=== PATIENT | female | born 1940 | race Caucasian/White ===

== ENCOUNTER → 2016-11-12 | Outpatient (CLI) | payer MEDICARE ==
--- NOTE | 2016-11-12 12:45 | BD ---
EXAMINATION TYPE: MG DEXA axial skeleton. DATE OF EXAM: 11/12/2016 9:12 AM COMPARISON: Previous exam dated 14 October 2014 CLINICAL HISTORY: DISORDER OF BONE Height: 4'11 Weight: 131 FRAX RISK QUESTIONS: Alcohol (3 or more units per day): no Family History (Parent hip fracture): no Glucocorticoids (More than 3mos): no (Ex: prednisone, prednisolone, methylprednisolone, dexamethasone, and hydrocortisone). History of Fracture in Adulthood: no Secondary Osteoporosis: 1. Type 1 Diabetes: no 2. Hyperthyroidism: no 3. Menopause before 45: no 4. Malnutrition: no 5. Chronic liver disease: no Rheumatoid Arthritis: no Current Tobacco Use: no RISK FACTORS HISTORY OF: Family History of Osteoporosis: Diet low in dairy products/other sources of calcium: Postmenopausal woman: Yes MEDICATIONS: Additional Medications: cholesterol, anxiety Additional History: disorder of bone EXAM MEASUREMENTS: Bone mineral densitometry was performed using the [employer] System. Bone mineral density as measured about the Lumbar spine is: ----- L1-L4(G/cm2): 0.952 T Score Values are as follows: ----- L2: -2.6 ----- L3: -1.5 ----- L4: -1.7 ----- L1-L4: -1.9 Bone mineral density has: Decreased -4.7% since study of: 10/14/2014 Bone mineral density about the R hip (g/cm2): 0.729 Bone mineral density about the L hip (g/cm2): 0.754 T Score values are as follows: -----R Neck: -2.2 -----L Neck: -2.0 -----R Intertrochanter: 0.729 -----L Intertrochanter: 0.754 Bone mineral density has: Decreased -2.9% since study of: 10/14/2014 IMPRESSION: Osteoporosis (T Score less than -2.5) as noted by T Score values at the : L2 There is increased fracture risk and therapy is usually indicated based on age. Re-Screen 1-2 years. NOTE: T-SCORE=SD OF THE YOUNG ADULT MEAN.
== END | disposition home or self-care (01) ==
LOC: RADBDWWP 08:42
PROVIDERS: ATTEND Obstetrics & Gynecology
DX: M81.0 Age-related osteoporosis without current pathological fracture (principal)
CPT/HCPCS: 77080

== ENCOUNTER → 2017-03-26 | Outpatient (CLI) | payer MEDICARE ==
[2017-03-26 08:14] LABS: ALT 30 U/L (9-52); AST 28 U/L (14-36); Alkaline Phosphatase 72 U/L (38-126); Anion Gap 10 mmol/L; Blood Urea Nitrogen 14 mg/dL (7-17); Calcium 9.2 mg/dL (8.4-10.2); Carbon Dioxide 25 mmol/L (22-30); Chloride 108 mmol/L (98-107); Cholesterol 181 mg/dL (<200); Glucose 90 mg/dL (74-99); HDL Cholesterol 83 mg/dL (40-60); Non-African American GFR(MDRD) >60 (>60 ml/min/1.73 sqM); Potassium 4.2 mmol/L (3.5-5.1); Sodium 143 mmol/L (137-145); Total Bilirubin 0.6 mg/dL (0.2-1.3); Total Protein 7.1 g/dL (6.3-8.2); Triglycerides 137 mg/dL (<150)
[2017-03-26 08:17] LABS: CH 22.3; CHCM 28.2; HCT 31.1 % (34.0-46.0); HGB 8.8 gm/dL (11.4-16.0); Hypochromasia Marked; MCH 22.6 pg (25.0-35.0); MCHC 28.4 g/dL (31.0-37.0); MCV 79.5 fL (80.0-100.0); Mean Platelet Volume 7.5; RBC 3.91 m/uL (3.80-5.40); RDW 15.7 % (11.5-15.5); WBC 6.7 k/uL (3.8-10.6)
== END | disposition home or self-care (01) ==
LOC: LABWHC1 07:37
PROVIDERS: ATTEND Internal Medicine
DX: E78.5 Hyperlipidemia, unspecified (principal); E87.8 Other disorders of electrolyte and fluid balance, not elsewhere classified; R53.83 Other fatigue
CPT/HCPCS: 36415; 80053; 80061; 84443; 85027

== ENCOUNTER → 2017-03-29 | Outpatient (CLI) | payer MEDICARE ==
[2017-03-29 07:48] LABS: Basophils % (A) 1 %; CH 22.1; CHCM 28.3; Eosinophils # (A) 0.4 k/uL (0-0.7); Eosinophils % (A) 8 %; HCT 28.8 % (34.0-46.0); HGB 8.4 gm/dL (11.4-16.0); Hypochromasia Marked; Luc # (Auto) 0.19; Luc % (Auto) 4; Lymphocytes # (A) 1.2 k/uL (1.0-4.8); Lymphocytes % (A) 22 %; MCHC 29.4 g/dL (31.0-37.0); MCV 78.4 fL (80.0-100.0); Mean Platelet Volume 7.6; Microcytosis Slight; Monocytes # (A) 0.3 k/uL (0-1.0); Monocytes % (A) 6 %; Neutrophils # (A) 3.1 k/uL (1.3-7.7); Neutrophils % (A) 60 %; RBC 3.67 m/uL (3.80-5.40); RDW 15.9 % (11.5-15.5); WBC 5.2 k/uL (3.8-10.6); WBC (Perox) 5.53
[2017-03-29 11:44] LABS: C Reactive Protein 6.5 mg/L (<10.0)
[2017-03-29 11:51] LABS: % Iron Saturation 3.8 % (20-50)
== END | disposition home or self-care (01) ==
LOC: LABWHC1 07:09
PROVIDERS: ATTEND Internal Medicine
DX: D64.9 Anemia, unspecified (principal)
CPT/HCPCS: 36415; 82728; 83540; 83550; 84165; 85025; 86140

== ENCOUNTER 2017-04-23 07:00 | Day surgery (SDC) | payer MEDICARE ==
[2017-04-21 08:44] VITALS: BMI 24.7
[~2017-04-23 07:00] MED LIST: LACTATED RINGERS 1,000 ML IV SCH; LIDOCAINE 1% 20 ML VIAL (10MG/ML) FOR IV START INTRADERMA PRN
[2017-04-23 07:21] VITALS: RESP 16; TEMP 97.6
[2017-04-23] MEDS ORDERED: PROPOFOL 10 MG/ML 20 ML VIAL IV ONE (08:03)
[2017-04-23] MEDS ORDERED: LIDOCAINE 1% INJ 10MG/ML (20 ML MDV) ONE (08:03)
[2017-04-23 09:00] VITALS: PULSE 80
--- NOTE | 2017-04-23 09:01 | P.PCN ---
Date of Procedure: 04/23/17 Preoperative Diagnosis: Postoperative Diagnosis: Procedure(s) Performed: Brief history: Patient is a pleasant 76-year-old white female, scheduled for an elective upper endoscopy as well as colonoscopy as a part of evaluation of iron deficiency anemia. She was recently noted to have a hemoglobin of 8 and iron indices consistent with iron deficiency anemia. She denies any GI symptoms. She does have long-standing history of GERD and has been on omeprazole 20 mg daily and doing well. Procedure performed: Esophagogastroduodenoscopy with biopsy Colonoscopy Preoperative diagnosis: Iron deficiency anemia GERD Anesthesia: MAC Procedure: After informed consent was obtained from the patient was brought into the endoscopy unit and IV sedation was administered by anesthesia under continuous monitoring. Initially upper endoscopy was done. The Olympus GF 160 video endoscope was inserted inserted into the mouth and esophagus intubated without any difficulty and was gradually advanced into the stomach and duodenum and carefully examined. The bulb and second part of the duodenum appeared normal. Labs were done from the duodenum to rule out celiac disease. The scope was then withdrawn into the stomach adequately insufflated with air and upon careful examination the antrum and body had mild gastritis and biopsies were done from this area. The, cardia and fundus appeared normal. The scope was then withdrawn into the esophagus. Moderate large size hiatal hernia noted. The diaphragmatic impression was at 40 cm to the incisors. The GE junction was located at 30 cm to the incisors. It appeared regular with no erythema erosions or ulcerations. Rest of the esophagus appeared normal. Patient tolerated the procedure well. At this time the patient continued to remain sedation. Initial digital rectal examination was normal. Olympus CF 160 video colonoscope was then inserted into the rectum and gradually advanced to the cecum without any difficulty. Careful examination was performed as the scope was gradually being withdrawn. The prep was extremely poor throughout the colon and thorough irrigation was performed using irrigation system despite with some areas could not be adequately visualized. The cecum, ascending colon, transverse colon, descending colon, sigmoid colon and rectum appeared normal. Retroflexion was performed in the rectum and no lesions were noted. Patient tolerated the procedure well. Impression: 1. Upper endoscopy revealed moderate to large size hiatal hernia and mild antral gastritis 2. Colonoscopy revealed extremely poor prep but no evidence of colitis or colorectal neoplasia. Recommendations: Findings of this examination were discussed with the patient as well as a family. She was advised to follow with the biopsy results. She'll be scheduled for a small bowel capsule endoscopy to evaluate for small bowel bowel source of occult GI blood loss causing iron deficiency anemia. She'll be seen back in office in a month. Implants: Indications for Procedure: Operative Findings: Description of Procedure:
[2017-04-23 09:12] VITALS: BP 128/83
== END 2017-04-23 10:01 | disposition home or self-care (01) ==
LOC: ORWHC2ENDO 07:00
PROVIDERS: ATTEND Internal Medicine Gastroenterology
DX: K21.9 Gastro-esophageal reflux disease without esophagitis (principal); K29.50 Unspecified chronic gastritis without bleeding; K44.9 Diaphragmatic hernia without obstruction or gangrene; D50.9 Iron deficiency anemia, unspecified; Z79.899 Other long term (current) drug therapy
CPT/HCPCS: 43239; 45378; 88305; 88342; J2001; J2704

== ENCOUNTER → 2017-05-01 | Day surgery (SDC) | payer MEDICARE ==
[2017-04-28 13:19] VITALS: BMI 24.7
[~2017-05-01] MED LIST changes: -LACTATED RINGERS 1,000 ML IV SCH; -LIDOCAINE 1% 20 ML VIAL (10MG/ML) FOR IV START INTRADERMA PRN; +SIMETHICONE 40 MG/0.6 ML DROPS 2,000 MG/30 ML BOTTLE PO ONE
== END ==
LOC: ORWHC2ENDO 06:58
PROVIDERS: ATTEND Internal Medicine Gastroenterology
DX: D50.9 Iron deficiency anemia, unspecified (principal); R19.5 Other fecal abnormalities; K29.70 Gastritis, unspecified, without bleeding; K44.9 Diaphragmatic hernia without obstruction or gangrene
CPT/HCPCS: 91110

== ENCOUNTER → 2017-06-04 | Outpatient (CLI) | payer MEDICARE ==
[2017-06-04 08:17] LABS: Anisocytosis Slight; CH 23.7; CHCM 29.3; HCT 34.7 % (34.0-46.0); HGB 10.5 gm/dL (11.4-16.0); Hypochromasia Marked; MCH 24.7 pg (25.0-35.0); MCHC 30.4 g/dL (31.0-37.0); MCV 81.4 fL (80.0-100.0); Mean Platelet Volume 7.4; Microcytosis Slight; RBC 4.26 m/uL (3.80-5.40); RDW 19.5 % (11.5-15.5); WBC 7.4 k/uL (3.8-10.6)
== END | disposition home or self-care (01) ==
LOC: LABWHC1 07:58
PROVIDERS: ATTEND Internal Medicine Gastroenterology
DX: D50.9 Iron deficiency anemia, unspecified (principal)
CPT/HCPCS: 36415; 85027

== ENCOUNTER → 2017-08-14 | Outpatient (CLI) | payer MEDICARE ==
[2017-08-14 07:53] LABS: Anisocytosis Slight; CH 27.7; CHCM 30.3; HDW 2.25; HGB 13.6 gm/dL (11.4-16.0); Hypochromasia Moderate; MCH 28.2 pg (25.0-35.0); MCHC 30.8 g/dL (31.0-37.0); MCV 91.5 fL (80.0-100.0); Mean Platelet Volume 7.9; RBC 4.81 m/uL (3.80-5.40); RDW 16.6 % (11.5-15.5); WBC 5.7 k/uL (3.8-10.6)
== END | disposition home or self-care (01) ==
LOC: LABWHC1 07:18
PROVIDERS: ATTEND Internal Medicine Gastroenterology
DX: D50.9 Iron deficiency anemia, unspecified (principal)
CPT/HCPCS: 36415; 85027

== ENCOUNTER → 2017-09-26 | Outpatient (CLI) | payer MEDICARE ==
[2017-09-26 08:38] LABS: Anion Gap 9 mmol/L; Blood Urea Nitrogen 14 mg/dL (7-17); Calcium 9.5 mg/dL (8.4-10.2); Carbon Dioxide 27 mmol/L (22-30); Chloride 106 mmol/L (98-107); Cholesterol 196 mg/dL (<200); Glucose 90 mg/dL (74-99); HDL Cholesterol 67 mg/dL (40-60); Non-African American GFR(MDRD) >60 (>60 ml/min/1.73 sqM); Potassium 4.1 mmol/L (3.5-5.1); Sodium 142 mmol/L (137-145)
== END | disposition home or self-care (01) ==
LOC: LABWHC1 07:54
PROVIDERS: ATTEND Internal Medicine
DX: E78.4 Other hyperlipidemia (principal); E87.8 Other disorders of electrolyte and fluid balance, not elsewhere classified
CPT/HCPCS: 36415; 80048; 80061

== ENCOUNTER 2018-04-16 18:50 | Emergency (ER) | payer MEDICARE ==
[2018-04-16 19:01] VITALS: BP 146/98; PULSE 88; RESP 16; TEMP 98
[2018-04-16] MEDS ORDERED: LIDOCAINE 1% INJ 10MG/ML (20 ML MDV) SQ ONE (19:12)
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
--- NOTE | 2018-04-16 19:42 | XR ---
EXAMINATION TYPE: XR finger RT DATE OF EXAM: 04/16/2018 COMPARISON: NONE HISTORY: Pain and injury right little finger TECHNIQUE: 3 views FINDINGS: There is nondisplaced transverse fracture across the base of the proximal phalanx of the li ttle finger right hand. There is some spurring at the PIP joint. There is osteopenia. IMPRESSION: Acute fracture of the little finger as above.
== END 2018-04-16 19:45 | disposition home or self-care (01) ==
LOC: EC 18:50
DX: S62.646A Nondisplaced fracture of proximal phalanx of right little finger, initial encounter for closed fracture (principal); E78.5 Hyperlipidemia, unspecified; F41.9 Anxiety disorder, unspecified; F32.9 Major depressive disorder, single episode, unspecified; Z79.899 Other long term (current) drug therapy; Z91.030 Bee allergy status; V18.0XXA Pedal cycle driver injured in noncollision transport accident in nontraffic accident, initial encounter
CPT/HCPCS: 73140; 99283; 26725; J2001

== ENCOUNTER → 2018-09-30 | Outpatient (CLI) | payer MEDICARE ==
[2018-09-30 11:18] LABS: Calcium 9.9 mg/dL (8.4-10.2); Potassium 4.7 mmol/L (3.5-5.1)
[2018-09-30 11:25] LABS: Basophils % (A) 0 %; Eosinophils # (A) 0.1 k/uL (0-0.7); Eosinophils % (A) 1 %; HCT 46.3 % (34.0-46.0); HGB 15.3 gm/dL (11.4-16.0); Lymphocytes # (A) 1.2 k/uL (1.0-4.8); Lymphocytes % (A) 14 %; MCH 31.3 pg (25.0-35.0); MCV 94.9 fL (80.0-100.0); Mean Platelet Volume 7.8; Monocytes # (A) 0.5 k/uL (0-1.0); Monocytes % (A) 6 %; Neutrophils # (A) 7.2 k/uL (1.3-7.7); Neutrophils % (A) 78 %; Platelet Count 290 k/uL (150-450); RBC 4.88 m/uL (3.80-5.40); RDW 13.7 % (11.5-15.5); WBC 9.2 k/uL (3.8-10.6)
[2018-09-30 11:38] LABS: Appearance,Urine Cloudy (Clear); Bacteria,Urine Rare /hpf; Bilirubin,Urine Negative (Negative); Blood,Urine Negative (Negative); Color,Urine Yellow; Glucose,Urine (UA) Negative (Negative); Ketones,Urine Negative (Negative); Leukocyte Esterase,Urine Large (Negative); Mucus,Urine Moderate /hpf; Nitrite,Urine Negative (Negative); PH, Urine 6.5 (5.0-8.0); Protein,Urine Trace (Negative); Specific Gravity,Urine 1.026 (1.001-1.035); Squamous Epithelial Cell,Urine 7 /hpf (0-4); WBC,Urine 40 /hpf (0-5)
== END | disposition home or self-care (01) ==
LOC: LABPAT 10:30
PROVIDERS: ATTEND Urology
DX: Z01.812 Encounter for preprocedural laboratory examination (principal); N39.3 Stress incontinence (female) (male)
CPT/HCPCS: 80048; 81001; 85025; 87086

== ENCOUNTER 2018-10-07 09:14 | Observation (INO) | payer MEDICARE ==
[2018-09-30 10:00] VITALS: BMI 25.7
--- NOTE | 2018-10-06 15:17 | P.GSHP ---
History of Present Illness H&P Date: 10/06/18 78 yo with stress urinary incontinence who has failed conservative measures. HEr uds studies identified lpp of 100 and 99 cm h2o Her bladder function normal and her urthra is hypermobile She comes for a tot and cysto The risks and complications including the mesh controversy, pain erosion, failure retention have been explained understood and accepted. - Constitutional Constitutional: Denies chills, Denies fever - EENT Eyes: denies blurred vision, denies pain Ears, nose, mouth and throat: Denies headache, Denies sore throat - Cardiovascular Cardiovascular: Denies chest pain, Denies shortness of breath - Respiratory Respiratory: Denies cough, Denies 7 - Gastrointestinal Gastrointestinal: Denies abdominal pain, Denies diarrhea, Denies nausea, Denies vomiting - Genitourinary (Female) Genitourinary: Denies dysuria, Denies hematuria - Genitourinary (Male) Genitourinary: Denies dysuria, Denies hematuria - Musculoskeletal Musculoskeletal: Denies myalgias - Integumentary Integumentary: Denies pruritus, Denies rash - Neurological Neurological: Denies numbness, Denies weakness - Psychiatric Psychiatric: Denies anxiety, Denies depression - Endocrine Endocrine: Denies fatigue, Denies weight change Past Medical History Past Medical History: Hyperlipidemia, Osteoarthritis (OA) Additional Past Medical History / Comment(s): urinary incontinence History of Any Multi-Drug Resistant Organisms: None Reported Past Surgical History: Breast Surgery, Orthopedic Surgery Additional Past Surgical History / Comment(s): BILAT bunionectomy, CYST REMOVED RT BREAST, BIOPSIES ON BILAT BREAST. COLONOSCOPY/EGD, rt hand trigger thumb Past Anesthesia/Blood Transfusion Reactions: No Reported Reaction Smoking Status: Never smoker - Past Family History Mother Family Medical History: Cancer Medications and Allergies Home Medications Medication Instructions Recorded Confirmed Type ALPRAZolam 0.25 mg PO DIRECTED PRN 12/21/14 09/30/18 History Cyclobenzaprine [Flexeril] 1 mg PO HS 12/21/14 09/30/18 History PARoxetine HCL 40 mg PO DAILY 01/03/15 09/30/18 History Pravastatin Sodium [Pravachol] 40 mg PO DAILY 01/03/15 09/30/18 History Gabapentin [Neurontin] 100 mg PO DAILY 09/30/18 09/30/18 History Allergies Allergy/AdvReac Type Severity Reaction Status Date / Time bee venom protein (honey bee) AdvReac Swelling Verified 09/30/18 09:56 Surgical - Exam - General well developed, well nourished, no distress - Eyes PERRL - ENT no hearing loss - Neck no masses - Respiratory normal expansion, normal respiratory effort - Cardiovascular Rhythm: regular - Abdomen Abdomen: soft, non tender - Genitourinary hypermobile urethra, renetta, positive felisha test - Integumentary no rash, no growths - Neurologic normal coordination, normal sensation - Musculoskeletal normal gait, normal posture - Psychiatric oriented to time, oriented to person, oriented to place, speech is normal, memory intact Assessment and Plan Assessment: Impression. RENETTA Plan: TOT with cysto
[~2018-10-07 09:14] MED LIST changes: +DEXAMETHASONE SOD PHOSPHATE 10 MG/ML 1 ML VIAL IV ONE; +HYDROmorphone 1 MG/ML 1 ML SYRINGE IVP PRN; +LACTATED RINGERS 1,000 ML IV SCH; +MIDAZOLAM 2 MG/2 ML VIAL IV PRN; +ONDANSETRON 4 MG/2 ML VIAL IVP ONE; -SIMETHICONE 40 MG/0.6 ML DROPS 2,000 MG/30 ML BOTTLE PO ONE; +ceFAZolin 1,000 MG in EMPTY BAG 1 BAG IVPB ONE
[2018-10-07] MEDS ORDERED: LIDOCAINE 1% 20 ML VIAL (10MG/ML) FOR IV START INTRADERMA ONE (10:06)
[2018-10-07] MEDS ORDERED: MIDAZOLAM 2 MG/2 ML VIAL ONE (10:45)
[2018-10-07] MEDS ORDERED: LIDOCAINE 1% INJ 10MG/ML (20 ML MDV) ONE (10:45)
[2018-10-07] MEDS ORDERED: PROPOFOL 10 MG/ML 20 ML VIAL IV ONE (10:45)
[2018-10-07] MEDS ORDERED: fentaNYL (PF) 50 MCG/ML 2 ML AMP ONE (10:45)
[2018-10-07] MEDS ORDERED: ONDANSETRON 4 MG/2 ML VIAL IVP PRN (10:58)
[2018-10-07] MEDS ORDERED: BACITRACIN 500 UNIT/GM OINT 28.4 GM TUBE TOPICAL ONE (11:12)
[2018-10-07] MEDS ORDERED: VASOPRESSIN 20 UNIT/ML 1 ML VIAL SQ ONE (11:16)
[2018-10-07] MEDS ORDERED: GENTAMICIN IN NACL ISO-OSM PMX 80 MG/100 ML BAG IV ONE (11:16)
--- NOTE | 2018-10-07 11:29 | P.OP ---
Date of Procedure: 10/07/18 Preoperative Diagnosis: Urinary incontinence Postoperative Diagnosis: Stress urinary incontinence Procedure(s) Performed: Trans-obturator tape with cystoscopy Anesthesia: JOSE ALFREDO Surgeon: Sina Sawyer Pathology: none sent Condition: stable Disposition: PACU Indications for Procedure: The patient is a 78-year-old female with documented stress urinary incontinence on physical examination history and urodynamic she comes for a bladder neck suspension Description of Procedure: The patient is brought to the operating suite. She is given a successful general endotracheal anesthesia. She's placed lithotomy position with a sterile prep and drape. She's given a sterile abdominal and vaginal prep. A Kuo catheters introduced sterilely. The labia are sewn laterally with 2-0 silk. A vaginal speculum is placed. The anterior vaginal mucosa is elevated off the submucosa with 10 mL of a mixture Pitressin 20 g and saline 200 mL. A midline suburethral incision is made. I dissect lateral the bladder neck bilaterally. I make 2 incisions in the inguinal crease at the level of the clitoris. I passed the trans-obturator tape introducers through this incision into the obturator foramen around the issue pubic ramus into the vagina bilaterally making sure not to buttonhole the apex of the vagina. I then performed cystoscopy with a 19-Faroese sheath and Foroblique lens to make sure there is no bladder injury and there is none. I then attached the graft to the introducers and pull the obturator graft back through the obturator foramen through the inguinal crease bilaterally. Graft lay in the mid urethra nicely. I removed the redundant sheathing on the graft. I excised the redundant graft at the inguinal incision. I closed the vaginal mucosa with 3-0 Vicryl. I closed the skin with 4-0 Vicryl. A vaginal packing is placed in the vagina. The labial stitches are removed. The Kuo catheter had been replaced. The patient is awakened and returned recovery room good condition. Blood loss is about 25 mL.
[2018-10-07] MEDS: KETOROLAC 30 MG/ML 1 ML VIAL IVP PRN ×2 (12:15→18:05)
[2018-10-08] MEDS: KETOROLAC 30 MG/ML 1 ML VIAL IVP PRN ×2 (00:08→06:11)
[2018-10-08] MEDS: DEXTROSE 5%-0.45% NACL 1,000 ML IV SCH ×2 (04:09→05:08)
--- NOTE | 2018-10-08 07:14 | P.DS ---
Providers Date of admission: 10/08/18 04:32 Attending physician: Sina Sawyer Primary care physician: [facility] Course: The patient was admitted to the hospital 09/29/2018 for a trans-obturator tape. She underwent this without difficulty. She did well overnight with minimal discomfort. The packing and catheter removed this morning. She has voided. She'll be discharged later today assuming she continues to void without difficulty. She'll be followed up in the office in one week. Postoperative instructions given. She will resume her home medications. She does not require any narcotics. Her condition is good upon discharge Patient Condition at Discharge: Good Plan - Discharge Summary New Discharge Prescriptions: No Action Cyclobenzaprine [Flexeril] 10 mg PO HS ALPRAZolam 0.25 mg PO DAILY PRN PRN Reason: Anxiety Pravastatin Sodium [Pravachol] 40 mg PO DAILY PARoxetine HCL 40 mg PO DAILY Gabapentin [Neurontin] 100 mg PO DAILY Discharge Medication List ALPRAZolam 0.25 mg PO DAILY PRN 12/21/14 [History] Cyclobenzaprine [Flexeril] 10 mg PO HS 12/21/14 [History] PARoxetine HCL 40 mg PO DAILY 01/03/15 [History] Pravastatin Sodium [Pravachol] 40 mg PO DAILY 01/03/15 [History] Gabapentin [Neurontin] 100 mg PO DAILY 09/30/18 [History] Follow up Appointment(s)/Referral(s): Sina Sawyer MD [STAFF PHYSICIAN] - 1 Week Discharge Disposition: HOME SELF-CARE
[2018-10-08 08:31] VITALS: BP 144/81; PULSE 101; RESP 20; TEMP 97.9
== END 2018-10-08 09:20 | disposition home or self-care (01) ==
LOC: OR 09:14 → 6PED 11:56 → OR 10-08 04:31 → 6PED 10-08 04:32
PROVIDERS: ADMIT Urology; ATTEND Urology
DX: N39.3 Stress incontinence (female) (male) (principal); E78.5 Hyperlipidemia, unspecified; M19.90 Unspecified osteoarthritis, unspecified site; Z79.899 Other long term (current) drug therapy; Z91.030 Bee allergy status
CPT/HCPCS: 57288; G0378; C1771; J1580; J2250; J1100; J2405; J2001; J3010; J1885 ×2; J0690; J2704

== ENCOUNTER → 2018-10-19 | Outpatient (CLI) | payer MEDICARE ==
--- NOTE | 2018-10-19 11:15 | US ---
EXAMINATION TYPE: US carotid duplex BILAT DATE OF EXAM: 10/19/2018 COMPARISON: NONE CLINICAL HISTORY: R42 Dizziness. 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 Intimal thickening is present on the left. Patient has very tortuous vessels IMPRESSION: No significant flow-limiting stenosis. Intimal thickening is present on the left. Criteria for Assigning % of Stenosis / Diameter reduction (Estimation based on the indirect measurements of the internal carotid artery velocities (ICA PSV). 1. Normal (no stenosis)=ICA PSV < 125 cm/s: ratio < 2.0: ICA EDV<40 cm/s. 2. Less than 50% stenosis=ICA PSV < 125 cm/s: ratio < 2.0: ICA EDV<40 cm/s. 3. 50 to 69% stenosis=ICA PSV of 125 to 230 cm/s: ration 2.0 ? 4.0: ICA EDV 40-100 cm/s. 4. Greater than 70% stenosis to near occlusion= ICA PSV > 230 cm/s: ratio > 4.0: ICA EDV > 100 cm/s. 5. Near occlusion= ICA PSV velocities may be low or undetectable: variable ratio and ICA EDV. 6. Total occlusion=unable to detect flow.
== END | disposition home or self-care (01) ==
LOC: RADUSWWP 10:32
PROVIDERS: ATTEND Psychiatry & Neurology Neurology
DX: R42 Dizziness and giddiness (principal)
CPT/HCPCS: 93880

== ENCOUNTER → 2018-10-29 | Outpatient (CLI) | payer MEDICARE ==
--- NOTE | 2018-10-30 14:21 | MM ---
Reason for exam: screening (asymptomatic). Last mammogram was performed 1 year and 2 months ago. History: Patient is postmenopausal. Family history of breast cancer in maternal aunt at age 80. Benign left mammotome panel of the left breast, August 20, 2007. Cancelled Left Mammotome of the left breast, August 20, 2007. Benign cyst aspiration of the left breast, January 19, 1998. Excisional biopsy of the right breast. Took estrogen for 10 years beginning at age 57. Took progesterone for 10 years beginning at age 57. Physical Findings: A clinical breast exam by your physician is recommended on an annual basis and results should be correlated with mammographic findings. MG 3D Screening Mammo W/Cad Bilateral CC and MLO view(s) were taken. Prior study comparison: September 10, 2017, bilateral MG 3d screening mammo w/cad. September 09, 2016, bilateral MG 3d screening mammo w/cad. The breast tissue is extremely dense which could obscure a lesion on mammography. Benign appearing bilateral calcifications. No suspicious abnormality. Left biopsy marker noted. Post biopsy change on the right. No significant changes when compared with prior studies. ASSESSMENT: Benign, BI-RAD 2 RECOMMENDATION: Routine screening mammogram of both breasts in 1 year.
== END ==
LOC: RADMAMWWP 15:18
PROVIDERS: ATTEND Obstetrics & Gynecology
DX: Z12.31 Encounter for screening mammogram for malignant neoplasm of breast (principal); Z80.3 Family history of malignant neoplasm of breast
CPT/HCPCS: 77063; 77067

== ENCOUNTER → 2018-12-02 | Outpatient (CLI) | payer MEDICARE ==
--- NOTE | 2018-12-02 16:02 | BD ---
EXAMINATION TYPE: Axial Bone Density DATE OF EXAM: 12/02/2018 COMPARISON: 11/12/2016 CLINICAL HISTORY: Height: 58.5 IN Weight: 139 LBS FRAX RISK QUESTIONS: History of Fracture in Adulthood: YES RT FINGER RISK FACTORS HISTORY OF: Family History of Osteoporosis: YES MOTHER; AUNT (M) Active: YES Diet low in dairy products/other sources of calcium: YES Postmenopausal woman: AGE 49 MEDICATIONS: Additional Medications: CALCIUM, VIT D, CHOLESTEROL MEDS EXAM MEASUREMENTS: Bone mineral densitometry was performed using the [employer] System. Bone mineral density as measured about the Lumbar spine is: ----- L1-L4(G/cm2): 0.995 T Score Values are as follows: ----- L2: -1.8 ----- L3: -1.9 ----- L4: -0.9 ----- L1-L4: -1.5 Bone mineral density has: Increased 4.5% since study of: 11/12/2016 Bone mineral density about the R hip (g/cm2): 0.711 Bone mineral density about the L hip (g/cm2): 0.717 T Score values are as follows: -----R Neck: -2.4 -----L Neck: -2.3 -----R Total: -1.7 -----L Total: -1.6 Bone mineral density has: Decreased -3.0% since study of: 11/12/2016 IMPRESSION: Osteopenia NOTE: T-SCORE=SD OF THE YOUNG ADULT MEAN.
== END ==
LOC: RADBDWWP 14:55
PROVIDERS: ATTEND Obstetrics & Gynecology
DX: M85.80 Other specified disorders of bone density and structure, unspecified site (principal)
CPT/HCPCS: 77080

== ENCOUNTER 2019-11-03 17:48 | Emergency (ER) | payer MEDICARE ==
[2019-11-03] MEDS ORDERED: SODIUM CHLORIDE 0.9% 1,000 ML IV STA (18:13)
[2019-11-03] MEDS ORDERED: ONDANSETRON 4 MG/2 ML VIAL IVP STA (18:13)
[2019-11-03] MEDS ORDERED: SODIUM CHLORIDE 0.9% 500 ML 500 ML IV STA (18:13)
[2019-11-03 18:45] LABS: Basophils % (A) 0 %; Eosinophils # (A) 0.1 k/uL (0-0.7); Eosinophils % (A) 1 %; HCT 46.8 % (34.0-46.0); HGB 15.6 gm/dL (11.4-16.0); Lymphocytes # (A) 0.5 k/uL (1.0-4.8); Lymphocytes % (A) 5 %; MCH 31.6 pg (25.0-35.0); MCHC 33.4 g/dL (31.0-37.0); MCV 94.6 fL (80.0-100.0); Mean Platelet Volume 7.7; Monocytes # (A) 0.3 k/uL (0-1.0); Monocytes % (A) 3 %; Neutrophils # (A) 9.6 k/uL (1.3-7.7); Neutrophils % (A) 91 %; Platelet Count 229 k/uL (150-450); RBC 4.95 m/uL (3.80-5.40); RDW 12.9 % (11.5-15.5); WBC 10.6 k/uL (3.8-10.6)
[2019-11-03 18:59] LABS: Appearance,Urine Clear (Clear); Bilirubin,Urine Negative (Negative); Blood,Urine Negative (Negative); Color,Urine Yellow; Glucose,Urine (UA) Negative (Negative); Ketones,Urine Negative (Negative); Leukocyte Esterase,Urine Small (Negative); Mucus,Urine Many /hpf; Nitrite,Urine Negative (Negative); Protein,Urine Trace (Negative); RBC,Urine 4 /hpf (0-5); Specific Gravity,Urine 1.026 (1.001-1.035); Squamous Epithelial Cell,Urine 2 /hpf (0-4); WBC,Urine 6 /hpf (0-5)
[2019-11-03 19:27] LABS: ALT 26 U/L (4-34); AST 42 U/L (14-36); African American GFR (CKD) >90 (>60 ml/min/1.73 sqM); Albumin 4.1 g/dL (3.5-5.0); Alkaline Phosphatase 57 U/L (38-126); Anion Gap 10 mmol/L; Blood Urea Nitrogen 16 mg/dL (7-17); Calcium 9.6 mg/dL (8.4-10.2); Carbon Dioxide 20 mmol/L (22-30); Chloride 109 mmol/L (98-107); Glucose 109 mg/dL (74-99); Non-African American GFR(CKD) 84 (>60 ml/min/1.73 sqM); Potassium 4.2 mmol/L (3.5-5.1); Sodium 139 mmol/L (137-145); Total Bilirubin 0.8 mg/dL (0.2-1.3); Total Protein 6.7 g/dL (6.3-8.2)
--- NOTE | 2019-11-03 19:28 | ED ---
Nausea/Vomiting/Diarrhea HPI - General Chief complaint: Nausea/Vomiting/Diarrhea Stated complaint: Vomiting Time Seen by Provider: 11/03/19 17:50 Source: patient Mode of arrival: ambulatory Limitations: no limitations - History of Present Illness Initial comments: The patient is an 79-year-old female with past medical history of hyperlipidemia who presents to the emergency room with reported nausea, vomiting and diarrhea. States that her symptoms started yesterday. She does have multiple sick contacts in her household with similar symptoms. States that she's had multiple episodes yesterday of nonbilious, nonbloody vomiting. This was followed by multiple episodes of loose, watery stool. No recent antibiotic use or travel. Denies melanotic stools or hematochezia. Denies any abdominal pain. No fevers or chills. Denies any back or flank pain. No dysuria, hematuria or difficulty voiding. Denies a cough, shortness of breath or hemoptysis. Denies possibility of eating any tainted foods. There are no other alleviating, precipitating or modifying factors - Related Data Home Medications Medication Instructions Recorded Confirmed ALPRAZolam 0.25 mg PO DAILY PRN 12/21/14 10/08/18 Cyclobenzaprine [Flexeril] 10 mg PO HS 12/21/14 10/08/18 PARoxetine HCL 40 mg PO DAILY 01/03/15 10/08/18 Pravastatin Sodium [Pravachol] 40 mg PO DAILY 01/03/15 10/08/18 Gabapentin [Neurontin] 100 mg PO DAILY 09/30/18 10/08/18 Previous Rx's Medication Instructions Recorded Ondansetron Odt [Zofran Odt] 4 mg PO Q8HR PRN #10 tab 11/03/19 Allergies Allergy/AdvReac Type Severity Reaction Status Date / Time bee venom protein (honey bee) AdvReac Swelling Verified 10/08/18 06:45 Review of Systems ROS Statement: Those systems with pertinent positive or pertinent negative responses have been documented in the HPI. ROS Other: All systems not noted in ROS Statement are negative. Past Medical History Past Medical History: Hyperlipidemia, Osteoarthritis (OA) Additional Past Medical History / Comment(s): urinary incontinence History of Any Multi-Drug Resistant Organisms: None Reported Past Surgical History: Bladder Surgery, Breast Surgery, Orthopedic Surgery Additional Past Surgical History / Comment(s): BILAT bunionectomy, CYST REMOVED RT BREAST, BIOPSIES ON BILAT BREAST. COLONOSCOPY/EGD, rt hand trigger thumb Past Anesthesia/Blood Transfusion Reactions: No Reported Reaction Past Psychological History: Anxiety Smoking Status: Never smoker Past Alcohol Use History: None Reported Past Drug Use History: None Reported - Past Family History Mother Family Medical History: Cancer General Exam Limitations: no limitations General appearance: alert, in no apparent distress Head exam: Present: atraumatic, normocephalic, normal inspection Eye exam: Present: normal appearance, PERRL, EOMI. Absent: scleral icterus, conjunctival injection, periorbital swelling ENT exam: Present: normal exam, mucous membranes moist Neck exam: Present: normal inspection. Absent: tenderness, meningismus, lymphadenopathy Respiratory exam: Present: normal lung sounds bilaterally. Absent: respiratory distress, wheezes, rales, rhonchi, stridor Cardiovascular Exam: Present: normal rhythm, tachycardia, normal heart sounds. Absent: systolic murmur, diastolic murmur, rubs, gallop, clicks GI/Abdominal exam: Present: soft, normal bowel sounds. Absent: distended, tenderness, guarding, rebound, rigid Extremities exam: Present: normal inspection, full ROM, normal capillary refill. Absent: tenderness, pedal edema, joint swelling, calf tenderness Back exam: Present: normal inspection Neurological exam: Present: alert, oriented X3, CN II-XII intact Psychiatric exam: Present: normal affect, normal mood Skin exam: Present: warm, dry, intact, normal color. Absent: rash Course Vital Signs 11/03/19 11/03/19 11/03/19 17:52 19:30 20:30 Temperature 98.9 F 97.8 F 98.6 F Pulse Rate 117 H 98 91 Respiratory 18 20 16 Rate Blood Pressure 137/87 126/90 128/87 O2 Sat by Pulse 97 96 98 Oximetry Medical Decision Making - Medical Decision Making Upon arrival the patient was placed into room 8. A thorough history and physical exam was performed. Peripheral IV is established. Patient was given a 1500 bolus of normal saline. She is also given 4 mg of Zofran. A 12-lead EKG is performed which demonstrates a sinus tachycardia. I did conduct laboratory studies. I discussed CT imaging of the patient's abdomen with the patient however she refutes. His patient does not have abdominal pain, I do believe that CT imaging is not necessary. CBC is unremarkable. CMP shows a chloride of 109. Glucose 109. AST 42. UA shows trace protein, small leukocyte esterase, 6 white blood cells and many mucus. I reevaluated the patient and she has not had any further episodes of nausea, vomiting or diarrhea. She is requesting water. The patient does drink this and tolerates oral intake. This with the patient will be discharged home. She is given a Zofran starter pack. I will write the patient for prescription for Zofran. She must follow-up with her primary care doctor in 2-4 days. Return to the emergency room for any new or worsening symptoms. The patient was discharged home in stable condition - Lab Data Result diagrams: 11/03/19 18:20 11/03/19 18:20 Lab Results 11/03/19 11/03/19 11/03/19 Range/Units 18:20 18:20 18:20 WBC 10.6 (3.8-10.6) k/uL RBC 4.95 (3.80-5.40) m/uL Hgb 15.6 (11.4-16.0) gm/dL Hct 46.8 H (34.0-46.0) % MCV 94.6 (80.0-100.0) fL MCH 31.6 (25.0-35.0) pg MCHC 33.4 (31.0-37.0) g/dL RDW 12.9 (11.5-15.5) % Plt Count 229 (150-450) k/uL Neutrophils % 91 % Lymphocytes % 5 % Monocytes % 3 % Eosinophils % 1 % Basophils % 0 % Neutrophils # 9.6 H (1.3-7.7) k/uL Lymphocytes # 0.5 L (1.0-4.8) k/uL Monocytes # 0.3 (0-1.0) k/uL Eosinophils # 0.1 (0-0.7) k/uL Basophils # 0.0 (0-0.2) k/uL Sodium 139 (137-145) mmol/L Potassium 4.2 (3.5-5.1) mmol/L Chloride 109 H (98-107) mmol/L Carbon Dioxide 20 L (22-30) mmol/L Anion Gap 10 mmol/L BUN 16 (7-17) mg/dL Creatinine 0.66 (0.52-1.04) mg/dL Est GFR (CKD-EPI)AfAm >90 (>60 ml/min/1.73 sqM) Est GFR (CKD-EPI)NonAf 84 (>60 ml/min/1.73 sqM) Glucose 109 H (74-99) mg/dL Plasma Lactic Acid Huy (0.7-2.0) mmol/L Calcium 9.6 (8.4-10.2) mg/dL Total Bilirubin 0.8 (0.2-1.3) mg/dL AST 42 H (14-36) U/L ALT 26 (4-34) U/L Alkaline Phosphatase 57 (38-126) U/L Total Protein 6.7 (6.3-8.2) g/dL Albumin 4.1 (3.5-5.0) g/dL Lipase 97 (23-300) U/L TSH 1.840 (0.465-4.680) mIU/L Urine Color Yellow Urine Appearance Clear (Clear) Urine pH 6.0 (5.0-8.0) Ur Specific [place] 1.026 (1.001-1.035) Urine Protein Trace H (Negative) Urine Glucose (UA) Negative (Negative) Urine Ketones Negative (Negative) Urine Blood Negative (Negative) Urine Nitrite Negative (Negative) Urine Bilirubin Negative (Negative) Urine Urobilinogen 3.0 (<2.0) mg/dL Ur Leukocyte Esterase Small H (Negative) Urine RBC 4 (0-5) /hpf Urine WBC 6 H (0-5) /hpf Ur Squamous Epith Cells 2 (0-4) /hpf Urine Mucus Many H (None) /hpf 11/03/19 Range/Units 18:20 WBC (3.8-10.6) k/uL RBC (3.80-5.40) m/uL Hgb (11.4-16.0) gm/dL Hct (34.0-46.0) % MCV (80.0-100.0) fL MCH (25.0-35.0) pg MCHC (31.0-37.0) g/dL RDW (11.5-15.5) % Plt Count (150-450) k/uL Neutrophils % % Lymphocytes % % Monocytes % % Eosinophils % % Basophils % % Neutrophils # (1.3-7.7) k/uL Lymphocytes # (1.0-4.8) k/uL Monocytes # (0-1.0) k/uL Eosinophils # (0-0.7) k/uL Basophils # (0-0.2) k/uL Sodium (137-145) mmol/L Potassium (3.5-5.1) mmol/L Chloride (98-107) mmol/L Carbon Dioxide (22-30) mmol/L Anion Gap mmol/L BUN (7-17) mg/dL Creatinine (0.52-1.04) mg/dL Est GFR (CKD-EPI)AfAm (>60 ml/min/1.73 sqM) Est GFR (CKD-EPI)NonAf (>60 ml/min/1.73 sqM) Glucose (74-99) mg/dL Plasma Lactic Acid Huy 1.1 (0.7-2.0) mmol/L Calcium (8.4-10.2) mg/dL Total Bilirubin (0.2-1.3) mg/dL AST (14-36) U/L ALT (4-34) U/L Alkaline Phosphatase (38-126) U/L Total Protein (6.3-8.2) g/dL Albumin (3.5-5.0) g/dL Lipase (23-300) U/L TSH (0.465-4.680) mIU/L Urine Color Urine Appearance (Clear) Urine pH (5.0-8.0) Ur Specific [place] (1.001-1.035) Urine Protein (Negative) Urine Glucose (UA) (Negative) Urine Ketones (Negative) Urine Blood (Negative) Urine Nitrite (Negative) Urine Bilirubin (Negative) Urine Urobilinogen (<2.0) mg/dL Ur Leukocyte Esterase (Negative) Urine RBC (0-5) /hpf Urine WBC (0-5) /hpf Ur Squamous Epith Cells (0-4) /hpf Urine Mucus (None) /hpf - EKG Data EKG Comments: EKG demonstrates a sinus tachycardia with a ventricular rate of 111. TX interval 132. QRS 68. QTC of 424. No acute ST segment elevations or depressions concerning for ischemic changes Disposition Clinical Impression: Nausea & vomiting, Diarrhea Disposition: HOME SELF-CARE Condition: Stable Instructions (If sedation given, give patient instructions): Acute Nausea and Vomiting (ED) Additional Instructions: Please follow-up with your primary care doctor in 2-4 days. Return to the [facility] room for any new or worsening symptoms Prescriptions: Ondansetron Odt [Zofran Odt] 4 mg PO Q8HR PRN #10 tab PRN Reason: Nausea Is patient prescribed a controlled substance at d/c from ED?: No Referrals: Maribeth Schroeder MD [Primary Care Provider] - 1-2 days Time of Disposition: 20:09
[2019-11-03] MEDS ORDERED: ONDANSETRON 4 MG ODT STARTER PACK 2 TAB BTL PO STA (20:08)
[2019-11-04 01:39] VITALS: BP 128/87; PULSE 91; RESP 16; TEMP 98.6
== END 2019-11-03 20:30 | disposition home or self-care (01) ==
LOC: EC 17:48
DX: R11.2 Nausea with vomiting, unspecified (principal); R19.7 Diarrhea, unspecified; R00.0 Tachycardia, unspecified; R80.9 Proteinuria, unspecified; R82.81 Pyuria; R82.998 Other abnormal findings in urine; E78.5 Hyperlipidemia, unspecified; M19.90 Unspecified osteoarthritis, unspecified site; F41.9 Anxiety disorder, unspecified; Z91.030 Bee allergy status; Z79.899 Other long term (current) drug therapy; Z98.890 Other specified postprocedural states; Z53.20 Procedure and treatment not carried out because of patient's decision for unspecified reasons
CPT/HCPCS: 99284; 96374; 96361; 36415; 93005; 80053; 84443; 83605; 83690; 85025; 81001; J2405; S0119

== ENCOUNTER → 2019-12-16 | Outpatient (CLI) | payer MEDICARE ==
--- NOTE | 2019-12-17 11:47 | MM ---
Reason for exam: screening (asymptomatic). Last mammogram was performed 1 year and 2 months ago. History: Patient is postmenopausal. Family history of breast cancer in maternal aunt at age 80. Benign left mammotome panel of the left breast, August 20, 2007. Cancelled Left Mammotome of the left breast, August 20, 2007. Benign cyst aspiration of the left breast, January 19, 1998. Excisional biopsy of the right breast. Took estrogen for 10 years beginning at age 57. Took progesterone for 10 years beginning at age 57. Physical Findings: A clinical breast exam by your physician is recommended on an annual basis and results should be correlated with mammographic findings. MG 3D Screening Mammo W/Cad Bilateral CC and MLO view(s) were taken. Prior study comparison: October 29, 2018, bilateral MG 3d screening mammo w/cad. September 10, 2017, bilateral MG 3d screening mammo w/cad. The breast tissue is extremely dense which could obscure a lesion on mammography. Benign appearing bilateral calcifications. No significant changes when compared with prior studies. ASSESSMENT: Benign, BI-RAD 2 RECOMMENDATION: Routine screening mammogram of both breasts in 1 year.
== END | disposition home or self-care (01) ==
LOC: RADMAMWWP 10:57
PROVIDERS: ATTEND Family Medicine
DX: Z12.31 Encounter for screening mammogram for malignant neoplasm of breast (principal)
CPT/HCPCS: 77063; 77067

== ENCOUNTER → 2020-04-19 | Outpatient (CLI) | payer MEDICARE ==
--- NOTE | 2020-04-19 14:59 | XR ---
Left knee HISTORY: Trauma 4 days prior, pain 4 views of the left knee Bone mineralization, joint spaces and alignment are maintained. There is no joint effusion. Large ent hesophyte present at the insertion of the quadriceps tendon. Suspect vascular calcifications are pres ent. IMPRESSION: No fracture or dislocation.
== END | disposition home or self-care (01) ==
LOC: RADXRMAIN 14:34
PROVIDERS: ATTEND Nurse Practitioner Family
DX: M25.562 Pain in left knee (principal)

== ENCOUNTER → 2020-06-23 | Outpatient (CLI) | payer MEDICARE ==
--- NOTE | 2020-06-23 16:36 | US ---
EXAMINATION TYPE: US carotid duplex BILAT DATE OF EXAM: 06/23/2020 COMPARISON: 10/19/2018 CLINICAL HISTORY: 80-year-old female confusion, AMS R41.82. Altered mental status TECHNIQUE: Carotid duplex ultrasound examination. Direct Doppler criteria was utilized. FINDINGS: EXAM MEASUREMENTS: RIGHT: Peak Systolic Velocity (PSV) cm/sec ----- Right CCA: 59.0 ----- Right ICA: 36.2 ----- Right ECA: 84.5 ICA/CCA ratio: 0.6 RIGHT: End Diastole cm/sec ----- Right CCA: 14.5 ----- Right ICA: 12.7 ----- Right ECA: 13.1 LEFT: Peak Systolic Velocity (PSV) cm/sec ----- Left CCA: 54.0 ----- Left ICA: 95.6 ----- Left ECA: 61.4 ICA/CCA ratio: 1.8 LEFT: End Diastole cm/sec ----- Left CCA: 10.4 ----- Left ICA: 36.1 ----- Left ECA: 9.8 VERTEBRALS (direction of flow): Right Vertebral: Antegrade Left Vertebral: Antegrade Rhythm: Normal No significant stenosis seen, Right ICA velocities low when compared to Left ICA IMPRESSION: No hemodynamically significant internal carotid artery stenosis on either side. The right carotid primitivo ocities are asymmetrically lower compared to the left. Consider a more proximal stenosis near the arc h. CT angiography may be helpful to exclude a significant proximal stenosis. Criteria for Assigning % of Stenosis / Diameter reduction (Estimation based on the indirect measurements of the internal carotid artery velocities (ICA PSV). 1. Normal (no stenosis)=ICA PSV < 125 cm/s: ratio < 2.0: ICA EDV<40 cm/s. 2. Less than 50% stenosis=ICA PSV < 125 cm/s: ratio < 2.0: ICA EDV<40 cm/s. 3. 50 to 69% stenosis=ICA PSV of 125 to 230 cm/s: ration 2.0 ? 4.0: ICA EDV 40-100 cm/s. 4. Greater than 70% stenosis to near occlusion= ICA PSV > 230 cm/s: ratio > 4.0: ICA EDV > 100 cm/s. 5. Near occlusion= ICA PSV velocities may be low or undetectable: variable ratio and ICA EDV. 6. Total occlusion=unable to detect flow.
== END | disposition home or self-care (01) ==
LOC: RADUSWWP 13:34
PROVIDERS: ATTEND Psychiatry & Neurology Neurology
DX: R42 Dizziness and giddiness (principal)
CPT/HCPCS: 93880

== ENCOUNTER → 2020-07-26 | Outpatient (CLI) | payer MEDICARE ==
--- NOTE | 2020-07-27 09:36 | CT ---
EXAMINATION TYPE: CT angio neck DATE OF EXAM: 07/26/2020 HISTORY: Abnormal right ICA on ultrasound. COMPARISON: Carotid ultrasound June 23, 2020 CT DLP: 277 mGycm. Automated Exposure Control for Dose Reduction was Utilized. TECHNIQUE: CTA scan of the neck is performed with IV Contrast, patient injected with 65 mL of Isovue 370, axial images are obtained, coronal and sagittal reformatted images are reviewed. Three-D recons tructed images are created on an independent workstation and reviewed. FINDINGS: Carotid/Vascular Structures: There is normal three-vessel origin from the aortic arch. There is no si gnificant plaque or stenosis. There is normal origin right common carotid artery from the right brach iocephalic artery . There is a tortuous course to the brachiocephalic artery into the proximal axilla ry artery without significant plaque or stenosis. No significant plaque or stenosis is seen in the ri ght common or internal carotid artery, tortuous course proximal common carotid artery segment is note d. No significant plaque at bulb. Patent external carotid artery without significant plaque or stenos is. No significant plaque or stenosis in the left common or internal carotid arteries. Patent external ca rotid artery without significant plaque or stenosis. Codominant vertebrobasilar system. Vertebral arteries are patent to basilar junction. Other: Slight scoliotic curvature. Moderate to severe disc space narrowing with mild to moderate spur ring C4-C5 through the C6-C7 levels. Multilevel uncovertebral facet degenerative changes in the mid c ervical spine. IMPRESSION: No significant plaque or stenosis in common or internal carotid arteries bilaterally. No significant plaque or stenosis at origin of 3 great vessels from the aortic arch.
== END | disposition home or self-care (01) ==
LOC: RADCTMAIN 15:10
PROVIDERS: ATTEND Psychiatry & Neurology Neurology
DX: R94.39 Abnormal result of other cardiovascular function study (principal); Z51.81 Encounter for therapeutic drug level monitoring
CPT/HCPCS: 82565; 84520; 70498; 36415; Q9967

== ENCOUNTER 2020-10-01 12:42 | Emergency (ER) | payer MEDICARE ==
[2020-10-01 12:57] VITALS: RESP 18
[2020-10-01] MEDS ORDERED: ACETAMINOPHEN TAB 500 MG TAB PO STA (13:27)
--- NOTE | 2020-10-01 13:30 | ED ---
General Adult HPI - General Chief complaint: Upper Respiratory Infection Stated complaint: Cough, Weakness Time Seen by Provider: 10/01/20 12:55 Source: patient, RN notes reviewed, old records reviewed Mode of arrival: wheelchair Limitations: no limitations - History of Present Illness Initial comments: This is a 80-year-old female presents emergency Department with no significant past medical history. Patient states her last 2 days she has been having a dry cough no sputum production. Patient states she is not short of breath or difficulty breathing. Patient denies chest pain or palpitations. Patient denies any diarrhea. Patient denies abdominal pain patient denies nausea vomiting. Patient denies any dysuria hematuria urinary frequency. Patient denies headache patient denies numbness weakness. Patient denies any lightheadedness or dizziness. Patient denies any swelling to the legs or calf tenderness. Patient denies any exposure to COVID. - Related Data Home Medications Medication Instructions Recorded Confirmed ALPRAZolam 0.25 mg PO DAILY PRN 12/21/14 10/08/18 Cyclobenzaprine [Flexeril] 10 mg PO HS 12/21/14 10/08/18 PARoxetine HCL 40 mg PO DAILY 01/03/15 10/08/18 Pravastatin Sodium [Pravachol] 40 mg PO DAILY 01/03/15 10/08/18 Gabapentin [Neurontin] 100 mg PO DAILY 09/30/18 10/08/18 Previous Rx's Medication Instructions Recorded Ondansetron Odt [Zofran Odt] 4 mg PO Q8HR PRN #10 tab 11/03/19 Potassium Chloride ER [K-Dur 10] 10 meq PO DAILY #5 tab 10/01/20 Allergies Allergy/AdvReac Type Severity Reaction Status Date / Time bee venom protein (honey bee) AdvReac Swelling Verified 10/08/18 06:45 Review of Systems ROS Statement: Those systems with pertinent positive or pertinent negative responses have been documented in the HPI. ROS Other: All systems not noted in ROS Statement are negative. Past Medical History Past Medical History: Hyperlipidemia, Osteoarthritis (OA) Additional Past Medical History / Comment(s): urinary incontinence History of Any Multi-Drug Resistant Organisms: None Reported Past Surgical History: Bladder Surgery, Breast Surgery, Orthopedic Surgery Additional Past Surgical History / Comment(s): BILAT bunionectomy, CYST REMOVED RT BREAST, BIOPSIES ON BILAT BREAST. COLONOSCOPY/EGD, rt hand trigger thumb Past Anesthesia/Blood Transfusion Reactions: No Reported Reaction Past Psychological History: Anxiety Past Alcohol Use History: None Reported Past Drug Use History: None Reported - Past Family History Mother Family Medical History: Cancer General Exam - General Exam Comments Initial Comments: GENERAL: Patient is well-developed and well-nourished. Patient is nontoxic and well- hydrated and is in mild distress. ENT: Neck is soft and supple. No significant lymphadenopathy is noted. Oropharynx is clear. Moist mucous membranes. Neck has full range of motion without eliciting any pain. EYES: The sclera were anicteric and conjunctiva were pink and moist. Extraocular movements were intact and pupils were equal round and reactive to light. Eyelids were unremarkable. PULMONARY: Unlabored respirations. Good breath sounds bilaterally. No audible rales rhonchi or wheezing was noted. CARDIOVASCULAR: There is a regular rate and rhythm without any murmurs gallops or rubs. ABDOMEN: Soft and nontender with normal bowel sounds. SKIN: Skin is clear with no lesions or rashes and otherwise unremarkable. NEUROLOGIC: Patient is alert and oriented x3. Cranial nerves II through XII are grossly intact. Motor and sensory are also intact. Normal speech, volume and content. Symmetrical smile. MUSCULOSKELETAL: Normal extremities with adequate strength and full range of motion. LYMPHATICS: No significant lymphadenopathy is noted PSYCHIATRIC: Normal psychiatric evaluation. Limitations: no limitations Course Vital Signs 10/01/20 10/01/20 10/01/20 12:55 13:53 14:34 Temperature 100.3 F H 99.3 F Pulse Rate 105 H 97 Respiratory 18 18 18 Rate Blood Pressure 145/80 128/96 O2 Sat by Pulse 96 95 Oximetry Medical Decision Making - Medical Decision Making EKG shows sinus tachycardia at 103 bpm KS interval 244 QRS is 70 QT interval is 356 QTC is [address] segment elevation or depression. Chest x-ray shows no acute abnormality. Patient's potassium was still low so I gave her potassium in the emergency department - Lab Data Result diagrams: 10/01/20 13:32 10/01/20 13:32 Lab Results 10/01/20 10/01/20 10/01/20 Range/Units 13:32 13:32 13:51 WBC 11.1 H (3.8-10.6) k/uL RBC 4.67 (3.80-5.40) m/uL Hgb 14.4 (11.4-16.0) gm/dL Hct 42.7 (34.0-46.0) % MCV 91.5 (80.0-100.0) fL MCH 30.8 (25.0-35.0) pg MCHC 33.6 (31.0-37.0) g/dL RDW 13.2 (11.5-15.5) % Plt Count 227 (150-450) k/uL MPV 7.9 Neutrophils % 76 % Lymphocytes % 11 % Monocytes % 5 % Eosinophils % 6 % Basophils % 1 % Neutrophils # 8.4 H (1.3-7.7) k/uL Lymphocytes # 1.2 (1.0-4.8) k/uL Monocytes # 0.6 (0-1.0) k/uL Eosinophils # 0.6 (0-0.7) k/uL Basophils # 0.1 (0-0.2) k/uL Sodium 139 (137-145) mmol/L Potassium 3.0 L (3.5-5.1) mmol/L Chloride 114 H (98-107) mmol/L Carbon Dioxide 22 (22-30) mmol/L Anion Gap 3 mmol/L BUN 9 (7-17) mg/dL Creatinine 0.53 (0.52-1.04) mg/dL Est GFR (CKD-EPI)AfAm >90 (>60 ml/min/1.73 sqM) Est GFR (CKD-EPI)NonAf 90 (>60 ml/min/1.73 sqM) Glucose 75 (74-99) mg/dL Calcium 7.1 L (8.4-10.2) mg/dL Total Bilirubin 0.5 (0.2-1.3) mg/dL AST 23 (14-36) U/L ALT 13 (4-34) U/L Alkaline Phosphatase 56 (38-126) U/L Total Protein 5.1 L (6.3-8.2) g/dL Albumin 2.8 L (3.5-5.0) g/dL Urine Color Urine Appearance (Clear) Urine pH (5.0-8.0) Ur Specific [place] (1.001-1.035) Urine Protein (Negative) Urine Glucose (UA) (Negative) Urine Ketones (Negative) Urine Blood (Negative) Urine Nitrite (Negative) Urine Bilirubin (Negative) Urine Urobilinogen (<2.0) mg/dL Ur Leukocyte Esterase (Negative) Coronavirus (PCR) Not Detected (Not Detectd) 10/01/20 Range/Units 14:30 WBC (3.8-10.6) k/uL RBC (3.80-5.40) m/uL Hgb (11.4-16.0) gm/dL Hct (34.0-46.0) % MCV (80.0-100.0) fL MCH (25.0-35.0) pg MCHC (31.0-37.0) g/dL RDW (11.5-15.5) % Plt Count (150-450) k/uL MPV Neutrophils % % Lymphocytes % % Monocytes % % Eosinophils % % Basophils % % Neutrophils # (1.3-7.7) k/uL Lymphocytes # (1.0-4.8) k/uL Monocytes # (0-1.0) k/uL Eosinophils # (0-0.7) k/uL Basophils # (0-0.2) k/uL Sodium (137-145) mmol/L Potassium (3.5-5.1) mmol/L Chloride (98-107) mmol/L Carbon Dioxide (22-30) mmol/L Anion Gap mmol/L BUN (7-17) mg/dL Creatinine (0.52-1.04) mg/dL Est GFR (CKD-EPI)AfAm (>60 ml/min/1.73 sqM) Est GFR (CKD-EPI)NonAf (>60 ml/min/1.73 sqM) Glucose (74-99) mg/dL Calcium (8.4-10.2) mg/dL Total Bilirubin (0.2-1.3) mg/dL AST (14-36) U/L ALT (4-34) U/L Alkaline Phosphatase (38-126) U/L Total Protein (6.3-8.2) g/dL Albumin (3.5-5.0) g/dL Urine Color Yellow Urine Appearance Clear (Clear) Urine pH 6.0 (5.0-8.0) Ur Specific [place] 1.020 (1.001-1.035) Urine Protein Negative (Negative) Urine Glucose (UA) Negative (Negative) Urine Ketones Negative (Negative) Urine Blood Negative (Negative) Urine Nitrite Negative (Negative) Urine Bilirubin Negative (Negative) Urine Urobilinogen <2.0 (<2.0) mg/dL Ur Leukocyte Esterase Negative (Negative) Coronavirus (PCR) (Not Detectd) Disposition Clinical Impression: Upper respiratory tract infection, Hypokalemia Disposition: HOME SELF-CARE Condition: Good Instructions (If sedation given, give patient instructions): Upper Respiratory Infection (ED) Prescriptions: Potassium Chloride ER [K-Dur 10] 10 meq PO DAILY #5 tab Is patient prescribed a controlled substance at d/c from ED?: No Referrals: Maribeth Schroeder MD [Primary Care Provider] - 1-2 days Time of Disposition: 15:08
[2020-10-01 13:56] LABS: Basophils # (A) 0.1 k/uL (0-0.2); Basophils % (A) 1 %; Eosinophils # (A) 0.6 k/uL (0-0.7); Eosinophils % (A) 6 %; HCT 42.7 % (34.0-46.0); HGB 14.4 gm/dL (11.4-16.0); Lymphocytes # (A) 1.2 k/uL (1.0-4.8); Lymphocytes % (A) 11 %; MCH 30.8 pg (25.0-35.0); MCHC 33.6 g/dL (31.0-37.0); MCV 91.5 fL (80.0-100.0); Mean Platelet Volume 7.9; Monocytes # (A) 0.6 k/uL (0-1.0); Monocytes % (A) 5 %; Neutrophils # (A) 8.4 k/uL (1.3-7.7); Neutrophils % (A) 76 %; Platelet Count 227 k/uL (150-450); RBC 4.67 m/uL (3.80-5.40); RDW 13.2 % (11.5-15.5); WBC 11.1 k/uL (3.8-10.6)
[2020-10-01 14:08] LABS: ALT 13 U/L (4-34); AST 23 U/L (14-36); African American GFR (CKD) >90 (>60 ml/min/1.73 sqM); Albumin 2.8 g/dL (3.5-5.0); Alkaline Phosphatase 56 U/L (38-126); Anion Gap 3 mmol/L; Blood Urea Nitrogen 9 mg/dL (7-17); Calcium 7.1 mg/dL (8.4-10.2); Carbon Dioxide 22 mmol/L (22-30); Chloride 114 mmol/L (98-107); Glucose 75 mg/dL (74-99); Non-African American GFR(CKD) 90 (>60 ml/min/1.73 sqM); Sodium 139 mmol/L (137-145); Total Bilirubin 0.5 mg/dL (0.2-1.3); Total Protein 5.1 g/dL (6.3-8.2)
--- NOTE | 2020-10-01 14:14 | XR ---
EXAMINATION TYPE: XR chest 2V DATE OF EXAM: 10/01/2020 COMPARISON: 12/21/2014. HISTORY: Cough and congestion. TECHNIQUE: Frontal and lateral views of the chest are obtained. FINDINGS: There is large hiatal hernia. Otherwise no focal air space opacity, pleural effusion, or p neumothorax seen. The cardiac silhouette size is within normal limits. The osseous structures are intact. IMPRESSION: No acute cardiopulmonary process. Large hiatal hernia.
[2020-10-01 14:35] VITALS: TEMP 99.3
[2020-10-01 14:44] LABS: Appearance,Urine Clear (Clear); Bilirubin,Urine Negative (Negative); Blood,Urine Negative (Negative); Color,Urine Yellow; Glucose,Urine (UA) Negative (Negative); Ketones,Urine Negative (Negative); Leukocyte Esterase,Urine Negative (Negative); Nitrite,Urine Negative (Negative); Protein,Urine Negative (Negative); Urobilinogen,Urine <2.0 mg/dL (<2.0)
[2020-10-01] MEDS ORDERED: POTASSIUM CHLORIDE ER 20 MEQ TAB.ER PO STA (15:06)
[2020-10-01 15:23] VITALS: BP 131/75; PULSE 96
== END 2020-10-01 15:24 | disposition home or self-care (01) ==
LOC: EC 12:42
DX: J06.9 Acute upper respiratory infection, unspecified (principal); E87.6 Hypokalemia; R00.0 Tachycardia, unspecified; E78.5 Hyperlipidemia, unspecified; F41.9 Anxiety disorder, unspecified; Z79.899 Other long term (current) drug therapy; Z91.030 Bee allergy status; Z20.828 Contact with and (suspected) exposure to other viral communicable diseases
CPT/HCPCS: 36415; 71046; 80053; 81003; 85025; 87635; 93005; 99284

== ENCOUNTER 2021-01-11 16:39 | Emergency (ER) | payer MEDICARE ==
[2021-01-11 17:03] VITALS: TEMP 97.5
[2021-01-11] MEDS ORDERED: SODIUM CHLORIDE 0.9% 1,000 ML IV STA (17:30)
[2021-01-11] MEDS ORDERED: METOCLOPRAMIDE 5 MG/ML 2 ML VIAL IVP STA (17:30)
[2021-01-11] MEDS ORDERED: FAMOTIDINE 20 MG/2 ML VIAL IV STA (17:31)
--- NOTE | 2021-01-11 17:32 | ED ---
General Adult HPI - General Chief complaint: Nausea/Vomiting/Diarrhea Stated complaint: Dehydration Time Seen by Provider: 01/11/21 17:06 Source: patient, family, RN notes reviewed Mode of arrival: wheelchair Limitations: no limitations - History of Present Illness Initial comments: Patient is a pleasant 80-year-old female presenting to the emergency Department with complaints of nausea vomiting. Onset of symptoms was somewhere around 4 days ago. Patient did have more vomiting however it is somewhat improved. Nausea is only mild at this time. Patient did talk to her practitioner today and received Zofran prescription. Patient did have a couple episodes of diarrhea however none recently. No abdominal pain. Patient is worried she may be dehydrated. No fevers. No history of chronic similar problems. - Related Data Home Medications Medication Instructions Recorded Confirmed ALPRAZolam 0.25 mg PO DAILY PRN 12/21/14 10/08/18 Cyclobenzaprine [Flexeril] 10 mg PO HS 12/21/14 10/08/18 PARoxetine HCL 40 mg PO DAILY 01/03/15 10/08/18 Pravastatin Sodium [Pravachol] 40 mg PO DAILY 01/03/15 10/08/18 Gabapentin [Neurontin] 100 mg PO DAILY 09/30/18 10/08/18 Previous Rx's Medication Instructions Recorded Ondansetron Odt [Zofran Odt] 4 mg PO Q8HR PRN #10 tab 11/03/19 Potassium Chloride ER [K-Dur 10] 10 meq PO DAILY #5 tab 10/01/20 Allergies Allergy/AdvReac Type Severity Reaction Status Date / Time bee venom protein (honey bee) AdvReac Swelling Verified 01/11/21 17:03 Review of Systems ROS Statement: Those systems with pertinent positive or pertinent negative responses have been documented in the HPI. ROS Other: All systems not noted in ROS Statement are negative. Constitutional: Denies: fever Eyes: Denies: eye pain ENT: Denies: ear pain Respiratory: Denies: cough Cardiovascular: Denies: chest pain Endocrine: Denies: fatigue Gastrointestinal: Reports: as per HPI, nausea, vomiting. Denies: abdominal pain Genitourinary: Denies: dysuria Musculoskeletal: Denies: back pain Skin: Denies: rash Neurological: Denies: weakness Past Medical History Past Medical History: Hyperlipidemia, Osteoarthritis (OA) Additional Past Medical History / Comment(s): urinary incontinence History of Any Multi-Drug Resistant Organisms: None Reported Past Surgical History: Bladder Surgery, Breast Surgery, Orthopedic Surgery Additional Past Surgical History / Comment(s): BILAT bunionectomy, CYST REMOVED RT BREAST, BIOPSIES ON BILAT BREAST. COLONOSCOPY/EGD, rt hand trigger thumb Past Anesthesia/Blood Transfusion Reactions: No Reported Reaction Past Psychological History: Anxiety Smoking Status: Never smoker Past Alcohol Use History: None Reported Past Drug Use History: None Reported - Past Family History Mother Family Medical History: Cancer General Exam Limitations: no limitations General appearance: alert, in no apparent distress Head exam: Present: normocephalic Eye exam: Present: normal appearance ENT exam: Present: normal oropharynx Neck exam: Present: normal inspection Respiratory exam: Present: normal lung sounds bilaterally Cardiovascular Exam: Present: regular rate, normal rhythm GI/Abdominal exam: Present: soft. Absent: distended, tenderness, pulsatile mass Extremities exam: Present: normal inspection. Absent: pedal edema, calf tenderness Neurological exam: Present: alert Psychiatric exam: Present: normal affect, normal mood Skin exam: Present: normal color Course Vital Signs 01/11/21 01/11/21 17:00 18:24 Temperature 97.5 F L Pulse Rate 89 85 Respiratory 18 16 Rate Blood Pressure 146/90 144/97 O2 Sat by Pulse 96 98 Oximetry EKG Findings - EKG Comments: EKG Findings:: Normal sinus rhythm and 90. CO 150. QRS 78. QT 406. QTc 496. Normal axis. Normal QRS. No acute ST change. Medical Decision Making - Medical Decision Making Patient reevaluated and feeling much better. Patient updated on results. P atient is comfortable with discharge home. Patient does have prescription for Zofran at home. - Lab Data Result diagrams: 01/11/21 18:01 01/11/21 18:01 Lab Results 01/11/21 01/11/21 01/11/21 Range/Units 18:01 18:01 18:01 WBC 12.9 H (3.8-10.6) k/uL RBC 4.97 (3.80-5.40) m/uL Hgb 14.9 (11.4-16.0) gm/dL Hct 45.0 (34.0-46.0) % MCV 90.5 (80.0-100.0) fL MCH 30.1 (25.0-35.0) pg MCHC 33.2 (31.0-37.0) g/dL RDW 13.5 (11.5-15.5) % Plt Count 272 (150-450) k/uL MPV 7.6 Neutrophils % 84 % Lymphocytes % 10 % Monocytes % 4 % Eosinophils % 2 % Basophils % 0 % Neutrophils # 10.7 H (1.3-7.7) k/uL Lymphocytes # 1.3 (1.0-4.8) k/uL Monocytes # 0.5 (0-1.0) k/uL Eosinophils # 0.2 (0-0.7) k/uL Basophils # 0.0 (0-0.2) k/uL PT 10.3 (9.0-12.0) sec INR 1.0 (<1.2) APTT 22.3 (22.0-30.0) sec Sodium (137-145) mmol/L Potassium (3.5-5.1) mmol/L Chloride (98-107) mmol/L Carbon Dioxide (22-30) mmol/L Anion Gap mmol/L BUN (7-17) mg/dL Creatinine (0.52-1.04) mg/dL Est GFR (CKD-EPI)AfAm (>60 ml/min/1.73 sqM) Est GFR (CKD-EPI)NonAf (>60 ml/min/1.73 sqM) Glucose (74-99) mg/dL Calcium (8.4-10.2) mg/dL Total Bilirubin (0.2-1.3) mg/dL AST (14-36) U/L ALT (4-34) U/L Alkaline Phosphatase (38-126) U/L Troponin I (0.000-0.034) ng/mL Total Protein (6.3-8.2) g/dL Albumin (3.5-5.0) g/dL Amylase (30-110) U/L Lipase (23-300) U/L Urine Color Yellow Urine Appearance Cloudy H (Clear) Urine pH 5.5 (5.0-8.0) Ur Specific [place] 1.026 (1.001-1.035) Urine Protein 1+ H (Negative) Urine Glucose (UA) Negative (Negative) Urine Ketones Negative (Negative) Urine Blood Negative (Negative) Urine Nitrite Negative (Negative) Urine Bilirubin Negative (Negative) Urine Urobilinogen <2.0 (<2.0) mg/dL Ur Leukocyte Esterase Negative (Negative) Urine RBC 6 H (0-5) /hpf Urine WBC 7 H (0-5) /hpf Ur Squamous Epith Cells 3 (0-4) /hpf Urine Mucus Many H (None) /hpf 01/11/21 01/11/21 Range/Units 18:01 18:01 WBC (3.8-10.6) k/uL RBC (3.80-5.40) m/uL Hgb (11.4-16.0) gm/dL Hct (34.0-46.0) % MCV (80.0-100.0) fL MCH (25.0-35.0) pg MCHC (31.0-37.0) g/dL RDW (11.5-15.5) % Plt Count (150-450) k/uL MPV Neutrophils % % Lymphocytes % % Monocytes % % Eosinophils % % Basophils % % Neutrophils # (1.3-7.7) k/uL Lymphocytes # (1.0-4.8) k/uL Monocytes # (0-1.0) k/uL Eosinophils # (0-0.7) k/uL Basophils # (0-0.2) k/uL PT (9.0-12.0) sec INR (<1.2) APTT (22.0-30.0) sec Sodium 137 (137-145) mmol/L Potassium 4.2 (3.5-5.1) mmol/L Chloride 100 (98-107) mmol/L Carbon Dioxide 30 (22-30) mmol/L Anion Gap 7 mmol/L BUN 15 (7-17) mg/dL Creatinine 0.68 (0.52-1.04) mg/dL Est GFR (CKD-EPI)AfAm >90 (>60 ml/min/1.73 sqM) Est GFR (CKD-EPI)NonAf 82 (>60 ml/min/1.73 sqM) Glucose 106 H (74-99) mg/dL Calcium 9.8 (8.4-10.2) mg/dL Total Bilirubin 0.8 (0.2-1.3) mg/dL AST 50 H (14-36) U/L ALT 27 (4-34) U/L Alkaline Phosphatase 72 (38-126) U/L Troponin I <0.012 (0.000-0.034) ng/mL Total Protein 7.2 (6.3-8.2) g/dL Albumin 4.4 (3.5-5.0) g/dL Amylase 54 (30-110) U/L Lipase 71 (23-300) U/L Urine Color Urine Appearance (Clear) Urine pH (5.0-8.0) Ur Specific [place] (1.001-1.035) Urine Protein (Negative) Urine Glucose (UA) (Negative) Urine Ketones (Negative) Urine Blood (Negative) Urine Nitrite (Negative) Urine Bilirubin (Negative) Urine Urobilinogen (<2.0) mg/dL Ur Leukocyte Esterase (Negative) Urine RBC (0-5) /hpf Urine WBC (0-5) /hpf Ur Squamous Epith Cells (0-4) /hpf Urine Mucus (None) /hpf Disposition Clinical Impression: Nausea and vomiting Disposition: HOME SELF-CARE Condition: Stable Instructions (If sedation given, give patient instructions): Acute Nausea and Vomiting (ED) Additional Instructions: Please follow-up with primary care physician in the next day or 2 for recheck. Return for uncontrolled vomiting, fever, pain, worsening or changing symptoms or other concerns. Use Zofran prescription that you have for nausea as needed. Is patient prescribed a controlled substance at d/c from ED?: No Referrals: Maribeth Schroeder MD [Primary Care Provider] - 1-2 days Time of Disposition: 19:15
[2021-01-11 18:09] LABS: Basophils % (A) 0 %; Eosinophils # (A) 0.2 k/uL (0-0.7); Eosinophils % (A) 2 %; HGB 14.9 gm/dL (11.4-16.0); Lymphocytes # (A) 1.3 k/uL (1.0-4.8); Lymphocytes % (A) 10 %; MCH 30.1 pg (25.0-35.0); MCHC 33.2 g/dL (31.0-37.0); MCV 90.5 fL (80.0-100.0); Mean Platelet Volume 7.6; Monocytes # (A) 0.5 k/uL (0-1.0); Monocytes % (A) 4 %; Neutrophils # (A) 10.7 k/uL (1.3-7.7); Neutrophils % (A) 84 %; Platelet Count 272 k/uL (150-450); RBC 4.97 m/uL (3.80-5.40); RDW 13.5 % (11.5-15.5); WBC 12.9 k/uL (3.8-10.6)
[2021-01-11 18:23] LABS: ALT 27 U/L (4-34); AST 50 U/L (14-36); African American GFR (CKD) >90 (>60 ml/min/1.73 sqM); Albumin 4.4 g/dL (3.5-5.0); Alkaline Phosphatase 72 U/L (38-126); Amylase 54 U/L (30-110); Anion Gap 7 mmol/L; Appearance,Urine Cloudy (Clear); Bilirubin,Urine Negative (Negative); Blood Urea Nitrogen 15 mg/dL (7-17); Blood,Urine Negative (Negative); Calcium 9.8 mg/dL (8.4-10.2); Carbon Dioxide 30 mmol/L (22-30); Chloride 100 mmol/L (98-107); Color,Urine Yellow; Glucose 106 mg/dL (74-99); Glucose,Urine (UA) Negative (Negative); Ketones,Urine Negative (Negative); Leukocyte Esterase,Urine Negative (Negative); Lipase 71 U/L (23-300); Mucus,Urine Many /hpf; Nitrite,Urine Negative (Negative); Non-African American GFR(CKD) 82 (>60 ml/min/1.73 sqM); PH, Urine 5.5 (5.0-8.0); Potassium 4.2 mmol/L (3.5-5.1); Protein,Urine 1+ (Negative); RBC,Urine 6 /hpf (0-5); Sodium 137 mmol/L (137-145); Specific Gravity,Urine 1.026 (1.001-1.035); Squamous Epithelial Cell,Urine 3 /hpf (0-4); Total Bilirubin 0.8 mg/dL (0.2-1.3); Total Protein 7.2 g/dL (6.3-8.2); Urobilinogen,Urine <2.0 mg/dL (<2.0); WBC,Urine 7 /hpf (0-5)
[2021-01-11 18:25] VITALS: RESP 16
[2021-01-11 18:26] LABS: Partial Thromboplastin Time 22.3 sec (22.0-30.0); Prothrombin Time 10.3 sec (9.0-12.0)
[2021-01-11 19:42] VITALS: BP 137/94; PULSE 87
== END 2021-01-11 19:42 | disposition home or self-care (01) ==
LOC: EC 16:39
DX: R11.2 Nausea with vomiting, unspecified (principal); F41.9 Anxiety disorder, unspecified; E78.5 Hyperlipidemia, unspecified; M19.90 Unspecified osteoarthritis, unspecified site; Z79.899 Other long term (current) drug therapy
CPT/HCPCS: 36415; 93005; 80053; 82150; 83690; 84484; 85025; 85610; 85730; 81001; 99284; 96374; 96375; 96361; J2765

== ENCOUNTER → 2021-02-08 | Outpatient (CLI) | payer MEDICARE ==
--- NOTE | 2021-02-12 10:01 | MM ---
Reason for exam: screening (asymptomatic). Last mammogram was performed 1 year and 2 months ago. History: Patient is postmenopausal. Family history of breast cancer in maternal aunt at age 80. Benign left mammotome panel of the left breast, August 20, 2007. Cancelled Left Mammotome of the left breast, August 20, 2007. Benign cyst aspiration of the left breast, January 19, 1998. Excisional biopsy of the right breast. Took estrogen for 10 years beginning at age 57. Took progesterone for 10 years beginning at age 57. Physical Findings: A clinical breast exam by your physician is recommended on an annual basis and results should be correlated with mammographic findings. MG 3D Screening Mammo W/Cad Bilateral CC and MLO view(s) were taken. Prior study comparison: December 16, 2019, bilateral MG 3d screening mammo w/cad. October 29, 2018, bilateral MG 3d screening mammo w/cad. The breast tissue is heterogeneously dense. This may lower the sensitivity of mammography. Previous mammotome biopsy in the left breast. There is chronic nodularity in the right breast. No significant changes when compared with prior studies. ASSESSMENT: Benign, BI-RAD 2 RECOMMENDATION: Routine screening mammogram of both breasts in 1 year.
== END | disposition home or self-care (01) ==
LOC: RADMAMWWP 12:47
PROVIDERS: ATTEND Family Medicine
DX: Z12.31 Encounter for screening mammogram for malignant neoplasm of breast (principal); Z78.0 Asymptomatic menopausal state; Z80.3 Family history of malignant neoplasm of breast
CPT/HCPCS: 77063; 77067

== ENCOUNTER → 2021-03-10 | Outpatient (CLI) | payer MEDICARE ==
--- NOTE | 2021-03-11 04:27 | MR ---
EXAMINATION TYPE: MR cervical spine wo con DATE OF EXAM: 03/10/2021 COMPARISON: 02/02/2014 HISTORY: Neck pain for years. Multiplanar multiecho imaging of the cervical spine was performed without contrast. FINDINGS: Cervical vertebra have normal alignment. There is moderate multilevel cervical disc space narrowing f rom C3 to C7. There is posterior spurring of the endplates and small disc herniations at C3-4 C4-5 an d C5-6 and C6-7. Disc herniation is larger at C6-7. There is flattening of the cervical spinal cord a t C6-7. The canal is narrowed to 5 mm. There is no definite edema and the cord. There is 6 mm spinal stenosis at C4-5 and C5-6. The canal is 7 mm at C3-4. The brainstem is intact. There is no cervical c ompression fracture. The posterior elements are intact. IMPRESSION: Multilevel spondylotic changes. There is multilevel cervical spinal stenosis and severe stenosis at C 6-7 which is increased compared to old exam. Stenosis measures 6.5 mm on old exam and now measures 5 mm.
== END | disposition home or self-care (01) ==
LOC: RADMRIMAIN 10:45
PROVIDERS: ATTEND Psychiatry & Neurology Neurology
DX: M48.02 Spinal stenosis, cervical region (principal); M47.812 Spondylosis without myelopathy or radiculopathy, cervical region
CPT/HCPCS: 72141

== ENCOUNTER → 2021-06-12 | Outpatient (CLI) | payer MEDICARE ==
[2021-06-12 18:01] LABS: Appearance,Urine Clear (Clear); Bilirubin,Urine Negative (Negative); Blood,Urine Negative (Negative); Color,Urine Light Yellow; Glucose,Urine (UA) Negative (Negative); Ketones,Urine Negative (Negative); Leukocyte Esterase,Urine Large (Negative); Mucus,Urine Rare /hpf; Nitrite,Urine Negative (Negative); PH, Urine 5.5 (5.0-8.0); Protein,Urine Negative (Negative); RBC,Urine 1 /hpf (0-5); Specific Gravity,Urine 1.006 (1.001-1.035); Squamous Epithelial Cell,Urine <1 /hpf (0-4); Urobilinogen,Urine <2.0 mg/dL (<2.0); WBC,Urine 16 /hpf (0-5)
== END | disposition home or self-care (01) ==
LOC: LABMAIN 17:10
PROVIDERS: ATTEND Family Medicine
DX: N39.0 Urinary tract infection, site not specified (principal)
CPT/HCPCS: 81001; 87077; 87086; 87186

== ENCOUNTER 2021-06-20 04:32 | Emergency (ER) | payer MEDICARE ==
[2021-06-20] MEDS ORDERED: SODIUM CHLORIDE 0.9% 1,000 ML IV STA (04:33)
[2021-06-20] MEDS ORDERED: SODIUM CHLORIDE 0.9% 500 ML 500 ML IV STA (04:33)
[2021-06-20] MEDS ORDERED: ONDANSETRON 4 MG/2 ML VIAL IVP STA (04:35)
[2021-06-20 05:04] VITALS: TEMP 98.1
--- NOTE | 2021-06-20 05:06 | ED ---
Nausea/Vomiting/Diarrhea HPI <Jayden George - Last Filed: 06/20/21 08:13> - General Source: patient, EMS, RN notes reviewed, old records reviewed Mode of arrival: EMS Limitations: no limitations - History of Present Illness MD complaint: nausea, vomiting -: week(s) Description of Vomiting: other (none) Associated Abdominal Pain: No Radiation: none Severity: mild Severity scale (1-10): 2 Quality: cramping Consistency: intermittent Improves with: none Worsens with: none Context: recent surgery/procedure Associated Symptoms: loss of appetite, malaise, nausea/vomiting, weakness <Jairo Joshua - Last Filed: 06/20/21 21:29> - General Chief complaint: Nausea/Vomiting/Diarrhea Stated complaint: Nausea Time Seen by Provider: 06/20/21 04:33 - History of Present Illness Initial comments: This is an 81-year-old female to the ER. Patient presents today for evaluation of weakness nausea and not feeling well. Unsure if this medication related or related to recent surgery. Patient had a week of similar symptoms. Started on antibiotics for UTI yesterday. No travel history no sick contacts no fevers. Patient's recent medical history is positive for laminectomy that his been without incident patient's states patient has been sleeping for the most part of the last week (Jairo Joshua) - Related Data Home Medications Medication Instructions Recorded Confirmed ALPRAZolam 0.25 mg PO DAILY PRN 12/21/14 10/08/18 Cyclobenzaprine [Flexeril] 10 mg PO HS 12/21/14 10/08/18 PARoxetine HCL 40 mg PO DAILY 01/03/15 10/08/18 Pravastatin Sodium [Pravachol] 40 mg PO DAILY 01/03/15 10/08/18 Gabapentin [Neurontin] 100 mg PO DAILY 09/30/18 10/08/18 Previous Rx's Medication Instructions Recorded Ondansetron Odt [Zofran Odt] 4 mg PO Q8HR PRN #10 tab 11/03/19 Potassium Chloride ER [K-Dur 10] 10 meq PO DAILY #5 tab 10/01/20 Allergies Allergy/AdvReac Type Severity Reaction Status Date / Time bee venom protein (honey bee) AdvReac Swelling Verified 01/11/21 17:03 Review of Systems ROS Other: All systems not noted in ROS Statement are negative. <Jayden George - Last Filed: 06/20/21 08:13> ROS Other: All systems not noted in ROS Statement are negative. <Jairo Joshua - Last Filed: 06/20/21 21:29> ROS Statement: Those systems with pertinent positive or pertinent negative responses have been documented in the HPI. Past Medical History Past Medical History: Hyperlipidemia, Osteoarthritis (OA) Additional Past Medical History / Comment(s): urinary incontinence History of Any Multi-Drug Resistant Organisms: None Reported Past Surgical History: Bladder Surgery, Breast Surgery, Orthopedic Surgery Additional Past Surgical History / Comment(s): BILAT bunionectomy, CYST REMOVED RT BREAST, BIOPSIES ON BILAT BREAST. COLONOSCOPY/EGD, rt hand trigger thumb Past Anesthesia/Blood Transfusion Reactions: No Reported Reaction Past Psychological History: Anxiety Smoking Status: Never smoker Past Alcohol Use History: None Reported Past Drug Use History: None Reported - Past Family History Mother Family Medical History: Cancer <Jairo Joshua - Last Filed: 06/20/21 21:29> General Exam General appearance: alert, in no apparent distress Head exam: Present: atraumatic, normocephalic, normal inspection Eye exam: Present: normal appearance, PERRL, EOMI. Absent: scleral icterus, conjunctival injection, periorbital swelling ENT exam: Present: normal exam, mucous membranes moist Neck exam: Present: normal inspection. Absent: tenderness, meningismus, lymphadenopathy Respiratory exam: Present: normal lung sounds bilaterally. Absent: respiratory distress, wheezes, rales, rhonchi, stridor Cardiovascular Exam: Present: regular rate, normal rhythm, normal heart sounds. Absent: systolic murmur, diastolic murmur, rubs, gallop, clicks GI/Abdominal exam: Present: soft, normal bowel sounds. Absent: distended, t enderness, guarding, rebound, rigid Extremities exam: Present: normal inspection, full ROM, normal capillary refill. Absent: tenderness, pedal edema, joint swelling, calf tenderness Back exam: Present: normal inspection Neurological exam: Present: alert, oriented X3, CN II-XII intact Psychiatric exam: Present: normal affect, normal mood Skin exam: Present: warm, dry, intact, normal color. Absent: rash <Jairo Joshua - Last Filed: 06/20/21 21:29> Course <Jairo Joshua - Last Filed: 06/20/21 21:29> Vital Signs 06/20/21 06/20/21 04:32 08:04 Temperature 98.1 F Pulse Rate 81 85 Respiratory 18 15 Rate Blood Pressure 139/87 143/90 O2 Sat by Pulse 96 94 L Oximetry - Reevaluation(s) Reevaluation #1: 06/20/21 06:42 Medical records reviewed (Jairo Joshua) Reevaluation #2: 06/20/21 06:42 Patient has no significant symptoms here in the ER (Jairo Joshua) Medical Decision Making - Lab Data Result diagrams: 06/20/21 05:14 06/20/21 05:14 <Jayden George - Last Filed: 06/20/21 08:13> - Lab Data Result diagrams: 06/20/21 05:14 06/20/21 05:14 - EKG Data -: EKG Interpreted by Me (EKG is sinus rhythm 79 AK 150 QRS 76 QTC 483) <Jairo Joshua - Last Filed: 06/20/21 21:29> - Medical Decision Making 79 female with weakness following laminectomy, surgery went well with no complications patient has improvement neurological symptoms but does feel weak and nauseous more sleeping in a decreased appetite (Jairo Joshua) - Lab Data Lab Results 06/20/21 06/20/21 06/20/21 Range/Units 05:14 05:14 05:14 WBC 7.3 (3.8-10.6) k/uL RBC 4.32 (3.80-5.40) m/uL Hgb 13.1 (11.4-16.0) gm/dL Hct 39.3 (34.0-46.0) % MCV 90.9 (80.0-100.0) fL MCH 30.4 (25.0-35.0) pg MCHC 33.4 (31.0-37.0) g/dL RDW 13.2 (11.5-15.5) % Plt Count 303 (150-450) k/uL MPV 8.2 Neutrophils % 76 % Lymphocytes % 14 % Monocytes % 5 % Eosinophils % 2 % Basophils % 0 % Neutrophils # 5.6 (1.3-7.7) k/uL Lymphocytes # 1.0 (1.0-4.8) k/uL Monocytes # 0.4 (0-1.0) k/uL Eosinophils # 0.2 (0-0.7) k/uL Basophils # 0.0 (0-0.2) k/uL PT 10.7 (9.0-12.0) sec INR 1.0 (<1.2) APTT 19.7 L (22.0-30.0) sec Sodium (137-145) mmol/L Potassium (3.5-5.1) mmol/L Chloride (98-107) mmol/L Carbon Dioxide (22-30) mmol/L Anion Gap mmol/L BUN (7-17) mg/dL Creatinine (0.52-1.04) mg/dL Est GFR (CKD-EPI)AfAm (>60 ml/min/1.73 sqM) Est GFR (CKD-EPI)NonAf (>60 ml/min/1.73 sqM) Glucose (74-99) mg/dL Plasma Lactic Acid Huy (0.7-2.0) mmol/L Calcium (8.4-10.2) mg/dL Phosphorus (2.5-4.5) mg/dL Magnesium (1.6-2.3) mg/dL Total Bilirubin (0.2-1.3) mg/dL AST (14-36) U/L ALT (4-34) U/L Alkaline Phosphatase (38-126) U/L Creatine Kinase (30-135) U/L Troponin I (0.000-0.034) ng/mL NT-Pro-B Natriuret Pep pg/mL Total Protein (6.3-8.2) g/dL Albumin (3.5-5.0) g/dL Urine Color Yellow Urine Appearance Cloudy H (Clear) Urine pH 8.0 (5.0-8.0) Ur Specific [place] 1.011 (1.001-1.035) Urine Protein Negative (Negative) Urine Glucose (UA) Negative (Negative) Urine Ketones Negative (Negative) Urine Blood Negative (Negative) Urine Nitrite Negative (Negative) Urine Bilirubin Negative (Negative) Urine Urobilinogen 4.0 (<2.0) mg/dL Ur Leukocyte Esterase Trace H (Negative) Urine WBC 3 (0-5) /hpf Ur Squamous Epith Cells <1 (0-4) /hpf Amorphous Sediment Rare H (None) /hpf Urine Bacteria Rare H (None) /hpf Urine Mucus Occasional H (None) /hpf 06/20/21 06/20/21 06/20/21 Range/Units 05:14 05:14 05:14 WBC (3.8-10.6) k/uL RBC (3.80-5.40) m/uL Hgb (11.4-16.0) gm/dL Hct (34.0-46.0) % MCV (80.0-100.0) fL MCH (25.0-35.0) pg MCHC (31.0-37.0) g/dL RDW (11.5-15.5) % Plt Count (150-450) k/uL MPV Neutrophils % % Lymphocytes % % Monocytes % % Eosinophils % % Basophils % % Neutrophils # (1.3-7.7) k/uL Lymphocytes # (1.0-4.8) k/uL Monocytes # (0-1.0) k/uL Eosinophils # (0-0.7) k/uL Basophils # (0-0.2) k/uL PT (9.0-12.0) sec INR (<1.2) APTT (22.0-30.0) sec Sodium 138 (137-145) mmol/L Potassium 3.2 L (3.5-5.1) mmol/L Chloride 104 (98-107) mmol/L Carbon Dioxide 24 (22-30) mmol/L Anion Gap 10 mmol/L BUN 7 (7-17) mg/dL Creatinine 0.47 L (0.52-1.04) mg/dL Est GFR (CKD-EPI)AfAm >90 (>60 ml/min/1.73 sqM) Est GFR (CKD-EPI)NonAf >90 (>60 ml/min/1.73 sqM) Glucose 124 H (74-99) mg/dL Plasma Lactic Acid [place] 1.5 (0.7-2.0) mmol/L Calcium 9.7 (8.4-10.2) mg/dL Phosphorus 3.5 (2.5-4.5) mg/dL Magnesium 1.8 (1.6-2.3) mg/dL Total Bilirubin 0.7 (0.2-1.3) mg/dL AST 44 H (14-36) U/L ALT 23 (4-34) U/L Alkaline Phosphatase 94 (38-126) U/L Creatine Kinase 99 (30-135) U/L Troponin I <0.012 (0.000-0.034) ng/mL NT-Pro-B Natriuret Pep pg/mL Total Protein 6.1 L (6.3-8.2) g/dL Albumin 3.6 (3.5-5.0) g/dL Urine Color Urine Appearance (Clear) Urine pH (5.0-8.0) Ur Specific [place] (1.001-1.035) Urine Protein (Negative) Urine Glucose (UA) (Negative) Urine Ketones (Negative) Urine Blood (Negative) Urine Nitrite (Negative) Urine Bilirubin (Negative) Urine Urobilinogen (<2.0) mg/dL Ur Leukocyte Esterase (Negative) Urine WBC (0-5) /hpf Ur Squamous Epith Cells (0-4) /hpf Amorphous Sediment (None) /hpf Urine Bacteria (None) /hpf Urine Mucus (None) /hpf 06/20/21 Range/Units 05:14 WBC (3.8-10.6) k/uL RBC (3.80-5.40) m/uL Hgb (11.4-16.0) gm/dL Hct (34.0-46.0) % MCV (80.0-100.0) fL MCH (25.0-35.0) pg MCHC (31.0-37.0) g/dL RDW (11.5-15.5) % Plt Count (150-450) k/uL MPV Neutrophils % % Lymphocytes % % Monocytes % % Eosinophils % % Basophils % % Neutrophils # (1.3-7.7) k/uL Lymphocytes # (1.0-4.8) k/uL Monocytes # (0-1.0) k/uL Eosinophils # (0-0.7) k/uL Basophils # (0-0.2) k/uL PT (9.0-12.0) sec INR (<1.2) APTT (22.0-30.0) sec Sodium (137-145) mmol/L Potassium (3.5-5.1) mmol/L Chloride (98-107) mmol/L Carbon Dioxide (22-30) mmol/L Anion Gap mmol/L BUN (7-17) mg/dL Creatinine (0.52-1.04) mg/dL Est GFR (CKD-EPI)AfAm (>60 ml/min/1.73 sqM) Est GFR (CKD-EPI)NonAf (>60 ml/min/1.73 sqM) Glucose (74-99) mg/dL Plasma Lactic Acid [place]uy (0.7-2.0) mmol/L Calcium (8.4-10.2) mg/dL Phosphorus (2.5-4.5) mg/dL Magnesium (1.6-2.3) mg/dL Total Bilirubin (0.2-1.3) mg/dL AST (14-36) U/L ALT (4-34) U/L Alkaline Phosphatase (38-126) U/L Creatine Kinase (30-135) U/L Troponin I (0.000-0.034) ng/mL NT-Pro-B Natriuret Pep 427 pg/mL Total Protein (6.3-8.2) g/dL Albumin (3.5-5.0) g/dL Urine Color Urine Appearance (Clear) Urine pH (5.0-8.0) Ur Specific [place] (1.001-1.035) Urine Protein (Negative) Urine Glucose (UA) (Negative) Urine Ketones (Negative) Urine Blood (Negative) Urine Nitrite (Negative) Urine Bilirubin (Negative) Urine Urobilinogen (<2.0) mg/dL Ur Leukocyte Esterase (Negative) Urine WBC (0-5) /hpf Ur Squamous Epith Cells (0-4) /hpf Amorphous Sediment (None) /hpf Urine Bacteria (None) /hpf Urine Mucus (None) /hpf Disposition Is patient prescribed a controlled substance at d/c from ED?: No <Jayden George - Last Filed: 06/20/21 08:13> Is patient prescribed a controlled substance at d/c from ED?: No <Jairo Joshua - Last Filed: 06/20/21 21:29> Clinical Impression: Dehydration, Hypokalemia Disposition: HOME SELF-CARE Condition: Good Instructions (If sedation given, give patient instructions): Acute Nausea and Vomiting (ED) Referrals: Maribeth Schroeder MD [Primary Care Provider] - 1-2 days
[2021-06-20 05:30] LABS: Basophils % (A) 0 %; Eosinophils # (A) 0.2 k/uL (0-0.7); Eosinophils % (A) 2 %; HCT 39.3 % (34.0-46.0); HGB 13.1 gm/dL (11.4-16.0); Lymphocytes % (A) 14 %; MCH 30.4 pg (25.0-35.0); MCHC 33.4 g/dL (31.0-37.0); MCV 90.9 fL (80.0-100.0); Mean Platelet Volume 8.2; Monocytes # (A) 0.4 k/uL (0-1.0); Monocytes % (A) 5 %; Neutrophils # (A) 5.6 k/uL (1.3-7.7); Neutrophils % (A) 76 %; Platelet Count 303 k/uL (150-450); RBC 4.32 m/uL (3.80-5.40); RDW 13.2 % (11.5-15.5); WBC 7.3 k/uL (3.8-10.6)
[2021-06-20 05:39] LABS: ALT 23 U/L (4-34); AST 44 U/L (14-36); African American GFR (CKD) >90 (>60 ml/min/1.73 sqM); Albumin 3.6 g/dL (3.5-5.0); Alkaline Phosphatase 94 U/L (38-126); Anion Gap 10 mmol/L; Blood Urea Nitrogen 7 mg/dL (7-17); Calcium 9.7 mg/dL (8.4-10.2); Carbon Dioxide 24 mmol/L (22-30); Chloride 104 mmol/L (98-107); Creatine Kinase 99 U/L (30-135); Glucose 124 mg/dL (74-99); Magnesium 1.8 mg/dL (1.6-2.3); Non-African American GFR(CKD) >90 (>60 ml/min/1.73 sqM); Phosphorus 3.5 mg/dL (2.5-4.5); Potassium 3.2 mmol/L (3.5-5.1); Sodium 138 mmol/L (137-145); Total Bilirubin 0.7 mg/dL (0.2-1.3); Total Protein 6.1 g/dL (6.3-8.2)
[2021-06-20 05:45] LABS: Prothrombin Time 10.7 sec (9.0-12.0)
[2021-06-20 05:46] LABS: Partial Thromboplastin Time 19.7 sec (22.0-30.0)
[2021-06-20] MEDS ORDERED: POTASSIUM BICARBONATE/CIT AC 20 MEQ TABLET.EFF PO ONE (05:48)
--- NOTE | 2021-06-20 05:57 | XR ---
EXAMINATION TYPE: XR chest 2V DATE OF EXAM: 06/20/2021 COMPARISON: 10/01/2020 HISTORY: Weakness TECHNIQUE: FINDINGS: There is very large hiatal hernia. Lungs are clear of consolidation. There is no heart fail ure. There are no hilar masses. Costophrenic angles are clear. Bony thorax is intact. IMPRESSION: Large hiatal hernia. No active cardiopulmonary disease. No change.
[2021-06-20 07:53] LABS: Amorphous Sediment,Urine Rare /hpf; Appearance,Urine Cloudy (Clear); Bacteria,Urine Rare /hpf; Bilirubin,Urine Negative (Negative); Blood,Urine Negative (Negative); Color,Urine Yellow; Glucose,Urine (UA) Negative (Negative); Ketones,Urine Negative (Negative); Leukocyte Esterase,Urine Trace (Negative); Mucus,Urine Occasional /hpf; Nitrite,Urine Negative (Negative); Protein,Urine Negative (Negative); Specific Gravity,Urine 1.011 (1.001-1.035); Squamous Epithelial Cell,Urine <1 /hpf (0-4); WBC,Urine 3 /hpf (0-5)
[2021-06-20 08:05] VITALS: BP 143/90; PULSE 85; RESP 15
[2021-06-20] MEDS ORDERED: ACETAMINOPHEN TAB 325 MG TAB PO STA (08:06)
== END 2021-06-20 08:26 | disposition home or self-care (01) ==
LOC: EC 04:32
DX: E86.0 Dehydration (principal); E87.6 Hypokalemia; F41.9 Anxiety disorder, unspecified; E78.5 Hyperlipidemia, unspecified; M19.90 Unspecified osteoarthritis, unspecified site; Z91.030 Bee allergy status; Z79.899 Other long term (current) drug therapy
CPT/HCPCS: 36415; 71046; 80053; 81001; 82550; 83605; 83735; 83880; 84100; 84484; 85025; 85610; 85730; 93005; 96360; 96361; 99285

== ENCOUNTER → 2021-10-16 | Outpatient (CLI) | payer MEDICARE ==
--- NOTE | 2021-10-16 14:22 | XR ---
EXAMINATION TYPE: XR knee complete bilateral DATE OF EXAM: 10/16/2021 COMPARISON: NONE HISTORY: Pain TECHNIQUE: Three views are submitted. FINDINGS: Joint spaces are preserved. Osseous structures are intact. No acute fracture seen. Spurring along the patella noted and there is diffuse osteopenia. With mild narrowing of the joint spaces bilaterall y. No erosive changes. IMPRESSION: 1. Hypertrophic arthropathy. No acute fracture..
== END | disposition home or self-care (01) ==
LOC: RADXRMAIN 13:55
PROVIDERS: ATTEND Internal Medicine
DX: M17.0 Bilateral primary osteoarthritis of knee (principal)

== ENCOUNTER → 2022-03-20 | Outpatient (CLI) | payer MEDICARE ==
--- NOTE | 2022-03-20 11:54 | BD ---
EXAMINATION TYPE: Axial Bone Density DATE OF EXAM: 03/20/2022 COMPARISON: NONE CLINICAL HISTORY: 81 year old Female. ICD-10 CODE: M85.80 OSTEOPENIA Height: 59.5 Weight: 133.8 FRAX RISK QUESTIONS: Alcohol (3 or more units per day): no Family History (Parent hip fracture): yes Glucocorticoids (More than 3mos): no (Ex: prednisone, prednisolone, methylprednisolone, dexamethasone, and hydrocortisone). History of Fracture in Adulthood: no Secondary Osteoporosis: 1. Type 1 Diabetes: no 2. Hyperthyroidism: no 3. Menopause before 45: no 4. Malnutrition: no 5. Chronic liver disease: no Rheumatoid Arthritis: no Current Tobacco Use: no RISK FACTORS HISTORY OF: Surgery to Spine/Hip(right/left)/Wrist (right/left): no Family History of Osteoporosis: yes Active: yes Diet low in dairy products/other sources of calcium: yes Postmenopausal woman: yes Lost more than 2 inches in height since high school: yes MEDICATIONS: Additional History: EXAM MEASUREMENTS: Bone mineral densitometry was performed using the [employer]. Bone mineral density as measured about the Lumbar spine is: ----- L1-L4(G/cm2): 0.884 T Score Values are as follows: ----- L1: -3.2 ----- L2: -2.4 ----- L3: -2.4 ----- L4: -2.2 ----- L1-L4: -2.5 Bone mineral density has: decreased -9.2 % since study of: 12.02.2018 Bone mineral density about the R hip (g/cm2): 0.668 Bone mineral density about the L hip (g/cm2): 0.658 T Score values are as follows: -----R Neck: -2.7 -----L Neck: -2.7 -----R Total: -2.2 -----L Total: -2.3 Bone mineral density has: decreased -9.9 % since study of: 12.02.2018 FRAX%s: The graph provided illustrates a 21.6% chance for a major osteoporotic fx and a 8.4% chance f or the hips probability for fx in 10 years time. IMPRESSION: Osteoporosis NOTE: T-SCORE=SD OF THE YOUNG ADULT MEAN.
--- NOTE | 2022-03-21 14:38 | MM ---
Reason for exam: screening (asymptomatic). Last mammogram was performed 1 year and 1 month ago. History: Patient is postmenopausal. Family history of breast cancer in maternal aunt at age 80. Benign left mammotome panel of the left breast, August 20, 2007. Cancelled Left Mammotome of the left breast, August 20, 2007. Benign cyst aspiration of the left breast, January 19, 1998. Excisional biopsy of the right breast. Took estrogen for 10 years beginning at age 57. Took progesterone for 10 years beginning at age 57. Physical Findings: A clinical breast exam by your physician is recommended on an annual basis and results should be correlated with mammographic findings. MG 3D Screening Mammo W/Cad Bilateral CC and MLO view(s) were taken. Prior study comparison: February 08, 2021, bilateral MG 3d screening mammo w/cad. December 16, 2019, bilateral MG 3d screening mammo w/cad. The breast tissue is extremely dense which could obscure a lesion on mammography. Benign appearing bilateral calcifications. Previous mammotome biopsy in the left breast. No significant changes when compared with prior studies. ASSESSMENT: Benign, BI-RAD 2 RECOMMENDATION: Routine screening mammogram of both breasts in 1 year.
== END | disposition home or self-care (01) ==
LOC: RADMAMWWP 10:02
PROVIDERS: ATTEND Internal Medicine
DX: Z12.31 Encounter for screening mammogram for malignant neoplasm of breast (principal); M81.0 Age-related osteoporosis without current pathological fracture; Z78.0 Asymptomatic menopausal state; Z80.3 Family history of malignant neoplasm of breast
CPT/HCPCS: 77063; 77067; 77080

== ENCOUNTER → 2022-03-25 | Outpatient (CLI) | payer MEDICARE ==
[2022-03-25 10:48] LABS: Basophils # (A) 0.03 X 10*3/uL (0.00-0.10); Basophils % (A) 0.5 %; Eosinophils # (A) 0.26 X 10*3/uL (0.04-0.35); Eosinophils % (A) 4.7 %; HCT 45.3 % (37.2-46.3); HGB 14.3 g/dL (12.0-15.0); Immature Grans, Automated 0.4 %; Lymphocytes # (A) 1.59 X 10*3/uL (0.90-5.00); Lymphocytes % (A) 28.5 %; MCH 29.4 pg (27.0-32.0); MCHC 31.6 g/dL (32.0-37.0); MCV 93.2 fL (80.0-97.0); Mean Platelet Volume 11.6 fL (9.5-12.2); Monocytes # (A) 0.42 X 10*3/uL (0.20-1.00); Monocytes % (A) 7.5 %; NRBC Per 100 WBC 0 /100 WBCS (0.0-0.0); Neutrophils # (A) 3.25 X 10*3/uL (1.80-7.70); Neutrophils % (A) 58.4 %; Platelet Count 234 X 10*3/uL (140-440); RBC 4.86 X 10*6/uL (4.10-5.20); WBC 5.57 X 10*3/uL (4.50-10.00)
[2022-03-25 11:18] LABS: ALT 12 U/L (8-44); AST 20 U/L (13-35); African American GFR (CKD) 79.6 (60.0-200.0); Albumin 4.2 g/dL (3.8-4.9); Albumin/Globulin Ratio 1.68 (1.60-3.17); Alkaline Phosphatase 75 U/L (41-126); BUN/Creat Ratio 15.88 Ratio (12.00-20.00); Blood Urea Nitrogen 12.7 mg/dL (9.0-27.0); Calcium 9.5 mg/dL (8.7-10.3); Carbon Dioxide 24.5 mmol/L (20.0-27.5); Chloride 109 mmol/L (96-109); Chol/HDL Ratio 2.87 Ratio; Globulin 2.5 g/dL (1.6-3.3); Glucose 92 mg/dL (70-110); LDL Cholesterol,Calculated 68.7 mg/dL (0.0-131.0); Non-African American GFR(CKD) 68.7 (60.0-200.0); Potassium 3.9 mmol/L (3.5-5.5); Rheumatoid Factor, Qnt <10 IU/mL (0-15); Sodium 143 mmol/L (135-145); Total Protein 6.7 g/dL (6.2-8.2)
[2022-03-25 18:14] LABS: Anti-Smith Ab Interp NEGATIVE (NEGATIVE); Cyclic Citrull Pep IgG Unit <0.5 U/mL; Cyclic Citrullinated Pep IgG NEGATIVE (NEGATIVE)
== END | disposition home or self-care (01) ==
LOC: LABWHC1 07:07
PROVIDERS: ATTEND Internal Medicine
DX: E78.5 Hyperlipidemia, unspecified (principal); M85.80 Other specified disorders of bone density and structure, unspecified site; M19.042 Primary osteoarthritis, left hand; M19.041 Primary osteoarthritis, right hand
CPT/HCPCS: 36415; 80053; 80061; 82306; 84443; 85025; 86200; 86235; 86431

== ENCOUNTER → 2022-04-01 | Outpatient (CLI) | payer MEDICARE ==
--- NOTE | 2022-04-01 08:45 | P.CONS ---
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 The patient also had posterior cervical laminectomy one year ago by Dr. Boss. Her main complaint is that hands pain more so than the neck or lower back pain as she states. Her hands gets swollen occasionally and her pain increases by any physical activity involving using her hands. Patient uses Flexeril, Neurontin and occasionally Tylenol but they don't control her pain well. She denies any other health issues. Past Medical History Past Medical History: Hyperlipidemia, Osteoarthritis (OA) Additional Past Medical History / Comment(s): urinary incontinence History of Any Multi-Drug Resistant Organisms: None Reported Past Surgical History: Bladder Surgery, Breast Surgery, Orthopedic Surgery Additional Past Surgical History / Comment(s): BILAT bunionectomy, CYST REMOVED RT BREAST, BIOPSIES ON BILAT BREAST. COLONOSCOPY/EGD, rt hand trigger thumb Past Anesthesia/Blood Transfusion Reactions: No Reported Reaction Past Psychological History: Anxiety Smoking Status: Never smoker Past Alcohol Use History: None Reported Past Drug Use History: None Reported - Past Family History Mother Family Medical History: Cancer Medications and Allergies Home Medications Medication Instructions Recorded Confirmed Type ALPRAZolam 0.25 mg PO DAILY PRN 12/21/14 10/08/18 History Cyclobenzaprine [Flexeril] 10 mg PO HS 12/21/14 10/08/18 History PARoxetine HCL 40 mg PO DAILY 01/03/15 10/08/18 History Pravastatin Sodium [Pravachol] 40 mg PO DAILY 01/03/15 10/08/18 History Gabapentin [Neurontin] 100 mg PO DAILY 09/30/18 10/08/18 History Ondansetron Odt [Zofran Odt] 4 mg PO Q8HR PRN #10 tab 11/03/19 Rx Potassium Chloride ER [K-Dur 10] 10 meq PO DAILY #5 tab 10/01/20 Rx Allergies Allergy/AdvReac Type Severity Reaction Status Date / Time bee venom protein (honey bee) AdvReac Swelling Verified 04/01/22 08:30 Physical Exam - Constitutional General appearance: average body habitus - EENT Eyes: PERRLA - Integumentary Integumentary: no calor, no cellulitis, no cyanotic, no decreased turgor, no fl ushed, no jaundiced, no normal, no normal turgor, no pale, no rash, no ulcer - Neurologic Neuro exam of the upper extremities shows decreased handgrip due to increasing pain in the hands. 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 She also has some pain from previous neck surgery with postlaminectomy pain syndrome. The patient will be involved in physical therapy program shortly. I do not think the patient is a candidate for any injections due to the non- inflammatory process with osteoarthritis in the hands. I will start the patient on 2 pills a day of Tylenol with codeine No. 3. The patient is told that she might have constipation and she has to use [id number] bowel stimulant while she is using Tylenol with Codeine. I will give her 15 pills of that. We'll see the patient 2 weeks from now for reevaluation. I thank you for the referral
[2022-04-01 09:06] VITALS: BP 168/90; PULSE 84; RESP 18
== END ==
LOC: PNWHC3 08:11
PROVIDERS: ATTEND Anesthesiology
DX: M19.042 Primary osteoarthritis, left hand (principal); M19.041 Primary osteoarthritis, right hand; E78.5 Hyperlipidemia, unspecified; F41.9 Anxiety disorder, unspecified; Z91.030 Bee allergy status
CPT/HCPCS: 99211

== ENCOUNTER → 2022-04-15 | Outpatient (CLI) | payer MEDICARE ==
[2022-04-15 09:33] VITALS: BP 128/91; PULSE 77; RESP 18; TEMP 98.2
--- NOTE | 2022-04-15 09:56 | P.PN ---
Subjective Progress Note Date: 04/15/22 Principal diagnosis: A 81 yr old female with a history of severe and chronic BL wrist pain & stiffness secondary to arthropathy presents today for medication refills. Pain level is currently at 5 out of 10 in intensity, sharp, achy in character in the bilateral wrist which escalates as high as 10 out of 10 in intensity in the mornings and with repetitive use. Pain is alleviated with medications, heat, physical therapy which we she will start in 3 days, daily home stretching regimen, massage therapy every other month which is limited due to cost, repositioning and rest. She states that Tylenol #3 is ineffective in treating pain. Patient is currently on Tylenol No. 3, Neurontin, Flexeril, Xanax Patient denies any side effects of the medication(s), denies excessive drowsiness or sleepiness, denies suicidal ideation and reports that the current pain medication is helping to control the pain and improve activities of daily living. Patient denies any motor or sensory deficits. Patient denies any fever or night sweats, denies any change in the bowel movements or urination. Physical Examination: -Constitutional: Cooperative. Not in acute distress . -HEENT: Neck is supple. No lymphadenopathy. No thyromegaly. Normal thyroid size. Eyes: No ptosis , no icterus, no photophobia. +BL Phalens, +BL Tinel's ENT: No auditory deficits. Normal oropharynx. No Thrush. - Respiratory: Chest clear to auscultations bilaterally. No wheezing. No rhonchi. - Cardiovascular: Regular rate and rhythm. S1 / S2 , no S3 , no S4. - Gastrointestinal: Abdomen soft no tenderness. Bowel sounds positive in all four quadrants. No organomegaly. - Genitourinary: Deferred. - Neurologic: Cranial nerve II to XII intact. No focal neurological deficits. - Psychatric: Alert & oriented x 3. Matching mood & appropriate affect. Judgment and insight intact. - Lymphatic: No Lymphadenopathy. - Musculoskeletal: Cervical spine: Muscle bulk/ tone/ strength in the bilateral upper extremities normal Vertebral body tenderness to palpation over Facet loading test positive Thoracic spine Muscle bulk / tone/ strength in the bilateral paraspinal muscles normal Vertebral body tender to palpation over Facet loading test positive Lumbar spine: Motor bulk/ tone/ strength lower extremities , thigh and legs : 5/5 Deep tendon reflexes : Normal Knee Jerk. Normal Ankle Jerk . 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 [place] 5/325mg #60 & Naproxen 500mg BIDWM #60 w 1 refill. She will follow up with Dr Ta for further interventional treatment options for her wrists, including surgical options. Chronic and current use of high-risk medication (Opioids). The patient was counseled about risk of opioid use, psychological risk associated with opioids and was orally counseled to not overuse , divert or sell medications. Pt is to store medication in a safe location. The patient is counseled against driving while using narcotic medications and also not to use alcohol or any illicit recreational drugs. Patient verbalized understanding that the lack of compliance will result in failure to renew narcotic prescription(s) as well as possible discharge from the clinic Diagnoses, prognosis and treatment options including but not limited to physical therapy, surgical interventions, interventional therapies and medication management including narcotics and adjuvant medication were discus sed. All patient questions answered UDS will be collected at next visit. MAPS reviewed and it was appropriate. I have spent 31 minutes on patient care today. Dr Inman was available by phone for the evaluation of this patient. The time was used to review the medical records including relevant urine studies and Prescription history (MAPs), review of the available imaging, evaluation and examination of the patient, coordination of care with the medical staff and if applicable referring physicians, as well as creation of the medical record Objective - Vital Signs Vital signs: Vital Signs Temp 98.2 F 04/15/22 09:27 Pulse 77 04/15/22 09:27 Resp 18 04/15/22 09:27 BP 128/91 04/15/22 09:27 Pulse Ox 95 04/15/22 09:27 FiO2 Intake & Output 04/14/22 04/15/22 04/15/22 18:59 06:59 18:59 Weight 58.967 kg PQRS Measure Charge Sheet Mode of Arrival: Ambulatory - Pain Location Bilateral Hand Non-Pharmacological Interventions: Heat, Home Exercise, Inactivity, Massage, Physical Therapy, Position/Reposition, Stretching Pharmacological Interventions: PRN Medication, Scheduled Medication PQRS Narrative: Smoking Status Never smoker Narcotic Agreement Date Signed 04/01/22 Blood Pressure 128/91 Pain Intensity [Bilateral Hand 5 ] Scale Used Numeric (1 - 10) Hx Alcohol Use (MH) No Home Medications: Ambulatory Orders ALPRAZolam 0.25 mg PO DAILY PRN 12/21/14 Cyclobenzaprine [Flexeril] 10 mg PO HS 12/21/14 PARoxetine HCL 40 mg PO DAILY 01/03/15 Pravastatin Sodium [Pravachol] 40 mg PO DAILY 01/03/15 Gabapentin [Neurontin] 100 mg PO DAILY 09/30/18 Ondansetron Odt [Zofran Odt] 4 mg PO Q8HR PRN #10 tab 11/03/19 Potassium Chloride ER [K-Dur 10] 10 meq PO DAILY #5 tab 10/01/20 Acetaminophen-Codeine 300-30mg [Tylenol w/codeine #3] 1 - 2 tab PO Q4-6H PRN 04/15/22 Calcium Carbonate [Calcium] 600 mg PO DAILY 04/15/22 DULoxetine HCL [Cymbalta] 20 mg PO DAILY 04/15/22 Multivitamin [Multivitamins Adult Gummies] 1 each PO DAILY 04/15/22 Oxybutynin Xl [Ditropan XL] 5 mg PO DAILY 04/15/22
== END ==
LOC: PNWHC3 09:00
PROVIDERS: ATTEND Specialist
DX: M25.531 Pain in right wrist (principal); M25.532 Pain in left wrist; M25.632 Stiffness of left wrist, not elsewhere classified; M25.631 Stiffness of right wrist, not elsewhere classified; Z79.891 Long term (current) use of opiate analgesic; Z91.030 Bee allergy status
CPT/HCPCS: 99211

== ENCOUNTER 2022-05-22 07:21 | Emergency (ER) | payer MEDICARE ==
[2022-05-22] MEDS ORDERED: BEBTELOVIMAB (EUA) 175 MG/2 ML VIAL IV ONE (08:45)
--- NOTE | 2022-05-22 08:49 | ED ---
URI HPI - General Chief Complaint: Upper Respiratory Infection Stated Complaint: Possible COVID Time Seen by Provider: 05/22/22 07:32 Source: patient, RN notes reviewed Mode of arrival: wheelchair Limitations: no limitations - History of Present Illness Initial Comments: This an 82-year-old female presents emergency Department chief complaint of possible: 19. Patient has not follow-up last 2 days she was recently exposed. She's had hot and cold flashes, fever at home. Mild nasal congestion mild nausea and fatigue. No chest pain - Related Data Home Medications Medication Instructions Recorded Confirmed ALPRAZolam 0.25 mg PO DAILY PRN 12/21/14 04/15/22 Cyclobenzaprine [Flexeril] 10 mg PO HS 12/21/14 04/15/22 PARoxetine HCL 40 mg PO DAILY 01/03/15 04/15/22 Pravastatin Sodium [Pravachol] 40 mg PO DAILY 01/03/15 04/15/22 Gabapentin [Neurontin] 100 mg PO DAILY 09/30/18 04/15/22 Calcium Carbonate [Calcium] 600 mg PO DAILY 04/15/22 04/15/22 DULoxetine HCL [Cymbalta] 20 mg PO DAILY 04/15/22 04/15/22 Multivitamin [Multivitamins Adult 1 each PO DAILY 04/15/22 04/15/22 Gummies] Oxybutynin Xl [Ditropan XL] 5 mg PO DAILY 04/15/22 04/15/22 Previous Rx's Medication Instructions Recorded Ondansetron Odt [Zofran Odt] 4 mg PO Q8HR PRN #10 tab 11/03/19 Potassium Chloride ER [K-Dur 10] 10 meq PO DAILY #5 tab 10/01/20 HYDROcodone/APAP 5-325MG [[place] 1 tab PO Q12HR PRN 30 Days #60 tab 04/15/22 5-325] HYDROcodone/APAP 5-325MG [[place] 1 tab PO Q12HR PRN 30 Days #60 tab 04/15/22 5-325] Naproxen Sodium 550 mg PO BID-W/MEALS 30 Days #60 04/15/22 tablet Allergies Allergy/AdvReac Type Severity Reaction Status Date / Time bee venom protein (honey bee) AdvReac Swelling Verified 05/22/22 07:31 Review of Systems ROS Statement: Those systems with pertinent positive or pertinent negative responses have been documented in the HPI. ROS Other: All systems not noted in ROS Statement are negative. Past Medical History Past Medical History: Hyperlipidemia, Osteoarthritis (OA) Additional Past Medical History / Comment(s): urinary incontinence History of Any Multi-Drug Resistant Organisms: None Reported Past Surgical History: Bladder Surgery, Breast Surgery, Orthopedic Surgery Additional Past Surgical History / Comment(s): BILAT bunionectomy, CYST REMOVED RT BREAST, BIOPSIES ON BILAT BREAST. COLONOSCOPY/EGD, rt hand trigger thumb Past Anesthesia/Blood Transfusion Reactions: No Reported Reaction Past Psychological History: Anxiety Smoking Status: Never smoker - Past Family History Mother Family Medical History: Cancer General Exam Limitations: no limitations General appearance: alert, in no apparent distress Head exam: Present: atraumatic, normocephalic, normal inspection Eye exam: Present: normal appearance, PERRL, EOMI. Absent: scleral icterus, conjunctival injection, periorbital swelling ENT exam: Present: normal exam, mucous membranes moist Neck exam: Present: normal inspection. Absent: tenderness, meningismus, lymphadenopathy Respiratory exam: Present: normal lung sounds bilaterally. Absent: respiratory distress, wheezes, rales, rhonchi, stridor Cardiovascular Exam: Present: regular rate, normal rhythm, normal heart sounds. Absent: systolic murmur, diastolic murmur, rubs, gallop, clicks GI/Abdominal exam: Present: soft, normal bowel sounds. Absent: distended, tenderness, guarding, rebound, rigid Course Vital Signs 05/22/22 07:28 Temperature 98.1 F Pulse Rate 94 Respiratory 18 Rate Blood Pressure 120/62 O2 Sat by Pulse 96 Oximetry Medical Decision Making - Medical Decision Making Patient's positive for COVID-19. Patient did receive monoclonal antibodies. Patient's vitals are stable patient discharged in stable condition return parameters were discussed. - Lab Data Lab Results 05/22/22 Range/Units 07:33 Coronavirus (PCR) Detected A (Not Detectd) Disposition Clinical Impression: COVID-19 Disposition: HOME SELF-CARE Condition: Stable Instructions (If sedation given, give patient instructions): COVID-19 (Coronavirus Disease 2019) (ED) Additional Instructions: Please return to the Emergency Department if symptoms worsen or any other concerns. Is patient prescribed a controlled substance at d/c from ED?: No Referrals: Domo Kwan MD [Primary Care Provider] - 1-2 days Time of Disposition: 08:05
[2022-05-22 10:44] VITALS: BP 135/77; PULSE 78; RESP 20; TEMP 98.6
== END 2022-05-22 10:45 | disposition home or self-care (01) ==
LOC: EC 07:21
DX: U07.1 COVID-19 (principal); E78.5 Hyperlipidemia, unspecified; Z91.030 Bee allergy status
CPT/HCPCS: 87635; 99284; Q0222

== ENCOUNTER → 2022-07-18 | Outpatient (CLI) | payer MEDICARE ==
[2022-07-18 10:21] VITALS: BP 135/82; PULSE 67; RESP 18; TEMP 98.2
--- NOTE | 2022-07-18 10:25 | P.PN ---
Subjective Progress Note Date: 07/18/22 This is an 82-year-old female with history of bilateral hand pain starting in the interphalangeal joints due to osteoarthritis. The patient also has neck pain status post neck surgery. Her hands pain is more intense than her neck pain and it seems that it is getting better after steroid injection in her hands by her orthopedic surgeon. The patient is still takes [place] 5 mg twice a day and Neurontin 100 mg twice a day. The patient is not sure about the names of the medications that she takes. Patient denies new-onset weakness, bowel/bladder incontinence, or any other signs or symptoms of cauda equina syndrome. There are no signs of acute intoxication, and no indications of medication diversion or overuse. In addition to above, 13-point review of systems is also negative for chest pain, shortness of breath, changes in vision, changes in hearing, new onset wea kness, abdominal pain, diarrhea, extreme fatigue, malaise, fever, skin changes, homicidal or suicidal ideation, or bowel or bladder incontinence. Vital Signs: Reviewed in EMR Gen: AAOx3, NAD HEENT: PERRLA,hearing grossly normal Pulm: resp unlabored Neck: supple, trachea midline Mild tenderness in the interphalangeal joints in both hands Neuro: CN II-XII grossly intact, Imaging: Reviewed in EMR/chart Assessment: Osteoarthritis in both hands Cervical post laminectomy Plan: 1. Explanation: When patients on opioids, opioid and psychological risk scores were reviewed. Diagnoses, prognoses, and multiple treatment options including but not limited to physical therapy, interventional therapies, adjuvant medical therapies, narcotic medication therapies, and surgery were discussed with the patient and all questions were answered to the patient's satisfaction. 2. Opioid agreement:When patients are prescribed opoids through our clinic, opioid agreement is signed with the patient and the patient is warned not to use opioids while driving or before driving and not to combine opioids with benzodiazepines or alcohol. 3. Counseling: When patient is smoking or obese, the patient was counseled extensively on SMOKING CESSATION, BODY MASS INDEX, EXERCISE. Specifically, the patient was instructed regarding the importance of smoking cessation, obesity, and exercise in the context of both chronic pain and overall health. 4. Procedures:none 5. Consultations: None 6. Investigations: None 7. Medications: Continue [place] 5 mg twice a day as needed for pain #60 pills with no refills 8. Disposition: Return to clinic in 4 weeks 9. Maps were reviewed and were appropriate. Controlled Substance Measures Is patient prescribed a controlled substance at discharge?: Yes When asked, does pt state using other controlled substances?: No If prescribed controlled substance>3 days was MAPS reviewed?: Yes If Rx opioid, was Start Talking consent form obtained?: Yes If opioid is for acute pain is fill amount 7 days or less?: No Was information provided regarding opioid addiction?: Yes Objective - Vital Signs Vital signs: Vital Signs Temp 98.2 F 07/18/22 10:09 Pulse 67 07/18/22 10:09 Resp 18 07/18/22 10:09 BP 135/82 07/18/22 10:09 Pulse Ox 94 L 07/18/22 10:09 FiO2
== END ==
LOC: PNWHC3 09:49
PROVIDERS: ATTEND Anesthesiology
DX: M19.041 Primary osteoarthritis, right hand (principal); M19.042 Primary osteoarthritis, left hand; M96.1 Postlaminectomy syndrome, not elsewhere classified; Z91.030 Bee allergy status
CPT/HCPCS: 99211

== ENCOUNTER → 2022-08-22 | Outpatient (CLI) | payer MEDICARE ==
[2022-08-22 10:35] VITALS: BP 142/88; PULSE 69; RESP 18; TEMP 98.5
--- NOTE | 2022-08-22 14:48 | P.PAINPG ---
PQRS Measure Charge Sheet Comment: A 82 yr old female with a history of severe and chronic low back pain secondary to lumbar degenerative disc diseases and lumbar spondylosis with facet arthropathy without myelopathy presents today for medication refills. Pain level is currently at 2/10 in intensity, constant, localized in BL hands, dull/ achy/ sharp w griping. Pain is provoked by griping hands. Pain is alleviated with PT x 6 wks in Jul 2022, heat, medications, injections from another doctor's office, topicals, massage and rest. Pt states she no longer needs narcotic medications from this office as her pain is resolving to tolerable levels. Patient is currently on [place] Patient denies any side effects of the medication(s), denies excessive drowsiness or sleepiness, denies suicidal ideation and reports that the current pain medication is helping to control the pain and improve activities of daily living. Patient denies any motor or sensory deficits. Patient denies any fever or night sweats, denies any change in the bowel movements or urination. Physical Examination: -Constitutional: Cooperative. Not in acute distress . - Neurologic: Cranial nerve II to XII intact. No focal neurological deficits. - Psychatric: Alert & oriented x 3. Matching mood & appropriate affect. Judgment and insight intact. - Musculoskeletal: Cervical spine: Muscle bulk/ tone/ strength in the bilateral upper extremities normal Vertebral body tenderness to palpation over Sp[place]ling test positive Distraction test positive Facet loading test positive Thoracic spine Muscle bulk / tone/ strength in the bilateral paraspinal muscles normal Vertebral body tender to palpation over Facet loading test positive Lumbar spine: Motor bulk/ tone/ strength lower extremities , thigh and legs : 5/5 Deep tendon reflexes : Normal Knee Jerk. Normal Ankle Jerk . Vertebral body tenderness to palpation over Lumbar Facet Loading Test positive Straight Leg Raise: positive at 30 degrees right side/ left side Gaenslen's Test positive Sacral spine : Severe tenderness over the Sacroiliac joint: right side / left side Range of motion: Flexion of the lumbar spine <60 degrees Range of motion: Extension of the lumbar spine <20 degrees Gaenslen's Test positive Alistair's Test positive Bashir test: positive right side / left side Thigh Thrust Test Sacral Thrust Test Assessment and plan: Chronic low back pain secondary to lumbar degenerative disc disease , lumbar spondylosis with facet arthropathy without myelopathy Pt would like to be discharged from facility as she no longer needs to ta narcotics. She may return to this clinic on an as needed basis. All patient questions answered I have spent less than 30 minutes on patient care today. Dr Inman was available by phone for the evaluation of this patient. The time was used to review the medical records including relevant urine studies and Prescription history (MAPs), review of the available imaging, evaluation and examination of the patient, coordination of care with the medical staff and if applicable referring physicians, as well as creation of the medical record PQRS Narrative: Smoking Status Never smoker Narcotic Agreement Date Signed 04/01/22 Hx Alcohol Use (MH) Yes: 1 DRINK EVERY 2 WEEKS Home Medications: Ambulatory Orders ALPRAZolam 0.25 mg PO DAILY PRN 12/21/14 Cyclobenzaprine [Flexeril] 10 mg PO HS 12/21/14 PARoxetine HCL 40 mg PO DAILY 01/03/15 Pravastatin Sodium [Pravachol] 40 mg PO DAILY 01/03/15 Gabapentin [Neurontin] 100 mg PO DAILY 09/30/18 Ondansetron Odt [Zofran Odt] 4 mg PO Q8HR PRN #10 tab 11/03/19 Potassium Chloride ER [K-Dur 10] 10 meq PO DAILY #5 tab 10/01/20 Calcium Carbonate [Calcium] 600 mg PO DAILY 04/15/22 DULoxetine HCL [Cymbalta] 20 mg PO DAILY 04/15/22 HYDROcodone/APAP 5-325MG [[place] 5-325] 1 tab PO Q12HR PRN 30 Days #60 tab 04/15/22 HYDROcodone/APAP 5-325MG [[place] 5-325] 1 tab PO Q12HR PRN 30 Days #60 tab 04/15/22 Multivitamin [Multivitamins Adult Gummies] 1 each PO DAILY 04/15/22 Naproxen Sodium 550 mg PO BID-W/MEALS 30 Days #60 tablet 04/15/22 Oxybutynin Xl [Ditropan XL] 5 mg PO DAILY 04/15/22 Controlled Substance Measures - Controlled Substance Measures Is patient prescribed a controlled substance at discharge?: No
== END | disposition home or self-care (01) ==
LOC: PNWHC3 10:02
PROVIDERS: ATTEND Specialist
DX: M47.896 Other spondylosis, lumbar region (principal); M51.36 Other intervertebral disc degeneration, lumbar region
CPT/HCPCS: 99211

== ENCOUNTER → 2022-10-17 | Outpatient (CLI) | payer MEDICARE ==
[2022-10-17 08:29] VITALS: BP 134/89; PULSE 80; RESP 18; TEMP 98.4
--- NOTE | 2022-10-17 14:41 | P.PAINPG ---
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 Pain level is currently at 8 /10 in intensity, constant, localized in the cervical spine, achy in character w shooting towards the BL shoulders and RUE. Pain is provoked by cold weather. Pain is alleviated with Pt x 6 wks in Aug 2022, massage therapy monthly currently, heat, ice sometimes, medications (Tyl), topicals, repositioning and rest. Interventional pain procedures completed include Denies Patient is currently on Tyl OTC Patient denies any side effects of the medication(s), denies excessive drows iness or sleepiness, denies suicidal ideation and reports that the current pain medication is helping to control the pain and improve activities of daily living. Patient denies any motor or sensory deficits. Patient denies any fever or night sweats, denies any change in the bowel movements or urination. Physical Examination: -Constitutional: Cooperative. Not in acute distress . - Neurologic: Cranial nerve II to XII intact. No focal neurological deficits. - Psychatric: Alert & oriented x 3. Matching mood & appropriate affect. Judgment and insight intact. - Musculoskeletal: Cervical spine: Muscle bulk/ tone/ strength in the bilateral upper extremities normal Vertebral body tenderness to palpation over C6 Spurling test positive Distraction test positive Facet loading test positive Thoracic spine Muscle bulk / tone/ strength in the bilateral paraspinal muscles normal Vertebral body tender to palpation over Facet loading test positive Lumbar spine: Motor bulk/ tone/ strength lower extremities , thigh and legs : 5/5 Deep tendon reflexes : Normal Knee Jerk. Normal Ankle Jerk . Vertebral body tenderness to palpation over Lumbar Facet Loading Test positive Straight Leg Raise: positive at 30 degrees right side/ left side Gaenslen's Test positive Sacral spine : Severe tenderness over the Sacroiliac joint: right side / left side Range of motion: Flexion of the lumbar spine <60 degrees Range of motion: Extension of the lumbar spine <20 degrees Gaenslen's Test positive Bashir test: positive right side / left side Thigh Thrust Test Sacral Thrust Test Imaging: MRI without contrast of the cervical spine from reviewed Assessment and plan: Chronic neck pain secondary to cervical stensosi, DDD, spondylosis with facet arthropathy without myelopathy Recommendation of RAMÓN C6-C7. May need a series of injections, up to 3 within a 6 mo period, for optimal pain relief. Risks, benefits of procedure discussed and pt verbalized understanding. Denies anticoagulant use or medical history of diabetes. Chronic and current use of high-risk medication (Opioids). The patient was counseled about risk of opioid use, psychological risk associated with opioids and was orally counseled to not overuse , divert or sell medications. Pt is to store medication in a safe location. The patient is counseled against driving while using narcotic medicatio ns and also not to use alcohol or any illicit recreational drugs. Patient verbalized understanding that the lack of compliance will result in failure to renew narcotic prescription(s) as well as possible discharge from the clinic Diagnoses, prognosis and treatment options including but not limited to physical therapy, surgical interventions, interventional therapies and medication management including narcotics and adjuvant medication were discussed. All patient questions answered MAPS reviewed and it was appropriate. Prescription refill for [place] 5/325nmg #60 w 1 RF I have spent less than 30 minutes on patient care today. Dr Inman was available by phone for the evaluation of this patient. The time was used to review the medical records including relevant urine studies and Prescription history (MAPs), review of the available imaging, evaluation and examination of the patient, coordination of care with the medical staff and if applicable referring physicians, as well as creation of the medical record PQRS Narrative: Smoking Status Never smoker Narcotic Agreement Date Signed 04/01/22 Hx Alcohol Use (MH) Yes: 1 DRINK EVERY 2 WEEKS Home Medications: Ambulatory Orders ALPRAZolam 0.25 mg PO DAILY PRN 12/21/14 Cyclobenzaprine [Flexeril] 10 mg PO HS 12/21/14 PARoxetine HCL 40 mg PO DAILY 01/03/15 Pravastatin Sodium [Pravachol] 40 mg PO DAILY 01/03/15 Gabapentin [Neurontin] 100 mg PO DAILY 09/30/18 Ondansetron Odt [Zofran Odt] 4 mg PO Q8HR PRN #10 tab 11/03/19 Potassium Chloride ER [K-Dur 10] 10 meq PO DAILY #5 tab 10/01/20 Calcium Carbonate [Calcium] 600 mg PO DAILY 04/15/22 DULoxetine HCL [Cymbalta] 20 mg PO DAILY 04/15/22 HYDROcodone/APAP 5-325MG [[place] 5-325] 1 tab PO Q12HR PRN 30 Days #60 tab 04/15/22 HYDROcodone/APAP 5-325MG [[place] 5-325] 1 tab PO Q12HR PRN 30 Days #60 tab 04/15/22 Multivitamin [Multivitamins Adult Gummies] 1 each PO DAILY 04/15/22 Naproxen Sodium 550 mg PO BID-W/MEALS 30 Days #60 tablet 04/15/22 Oxybutynin Xl [Ditropan XL] 5 mg PO DAILY 04/15/22 Controlled Substance Measures - Controlled Substance Measures Is patient prescribed a controlled substance at discharge?: Yes When asked, does pt state using other controlled substances?: No If prescribed controlled substance>3 days was MAPS reviewed?: Yes If Rx opioid, was Start Talking consent form obtained?: Yes Was information provided regarding opioid addiction?: Yes
== END ==
LOC: PNWHC3 07:56
PROVIDERS: ATTEND Specialist
DX: M47.812 Spondylosis without myelopathy or radiculopathy, cervical region (principal); M50.30 Other cervical disc degeneration, unspecified cervical region; M48.02 Spinal stenosis, cervical region; G89.29 Other chronic pain; Z91.030 Bee allergy status
CPT/HCPCS: 99211

== ENCOUNTER 2022-11-28 09:51 | Day surgery (SDC) | payer MEDICARE ==
[~2022-11-28 09:51] MED LIST changes: -DEXAMETHASONE SOD PHOSPHATE 10 MG/ML 1 ML VIAL IV ONE; -HYDROmorphone 1 MG/ML 1 ML SYRINGE IVP PRN; +LIDOCAINE 1% (10MG/ML) FOR IV START INTRADERMA PRN; -MIDAZOLAM 2 MG/2 ML VIAL IV PRN; -ONDANSETRON 4 MG/2 ML VIAL IVP ONE; -ceFAZolin 1,000 MG in EMPTY BAG 1 BAG IVPB ONE
[2022-11-28 10:29] VITALS: RESP 16; TEMP 97.5
[2022-11-28] MEDS ORDERED: DEXAMETHASONE SOD PHOSPHATE 10 MG/ML 1 ML VIAL ONE (10:56)
[2022-11-28] MEDS ORDERED: MIDAZOLAM 2 MG/2 ML VIAL ONE (10:56)
[2022-11-28] MEDS ORDERED: fentaNYL (PF) 50 MCG/ML 2 ML AMP ONE (10:56)
[2022-11-28] MEDS ORDERED: IOPAMIDOL M200 10 ML VIAL ONE (10:56)
--- NOTE | 2022-11-28 11:22 | P.PCN ---
Date of Procedure: 11/28/22 Procedure(s) Performed: . PROCEDURE 1. Cervical epidural steroid injection under fluoroscopic guidance, C6-7 (fluoroscopy images available in the radiology department ) 2. Cervical epidurogram. PREOPERATIVE DIAGNOSIS: 1- Cervical Degenerative Disc Diseases 2-cervical spondylosis with cervical Facet arthropathy without myelopathy.3-cervical spinal stenosis POSTOPERATIVE DIAGNOSIS: : 1- Cervical Degenerative Disc Diseases , 2-cervical spondylosis with cervical Facet arthropathy without myelopathy. 3-cervical spinal stenosis ANESTHESIA: moderate sedation, with Versed 1 mg and Fentanyl 50 mcg. Sedation start time : 1108 Sedation end time : 1118 EBL 0 PROCEDURE INDICATION: The patient with neck pain and radiculitis unresponsive to conservative treatment consents for procedure. PROCEDURE DESCRIPTION / TECHNIQUE: The patient was seen and identified in the preoperative area. Risks, benefits, complications, including but not limited to infections ,bleeding , allergic reactions to the medications ,and not complete pain releife, and alternatives were discussed with the patient, the patient agreed to proceed with the procedure and signed the consent. Patient was taken to the OR and time out was completed. The patient was placed in the prone position on the procedure table. A pillow was placed under the patients chest to increase the cervical interlaminar space. The cervical area was prepped and draped in the usual sterile fashion. Vital signs were closely monitored during the procedure. Conscious sedation was used during the procedure to decrease patients anxiety. Using anterior-posterior fluoroscopy, the C6-7 interlaminar space was identified and the skin over this site was marked and then infiltrated with 1% lidocaine subcutaneously. Subsequently, a 20-gauge 3-1/2-inch Tuohy epidural needle was inserted and advanced toward the epidural space by means of the ``hanging-drop technique and guided by AP and lateral fluoroscopy. The correct needle position in the epidural space was verified with the injection of 2 mL of the water soluble contrast dye Isovue-200 and observing an excellent epidurogram with the epidural spread of the dye, after negative aspiration for blood and CSF and in the absence of paresthesias. then, mixture containing 10 mg Dexamethasone and 2 ml of preservative-free normal saline injected and a washout of epidurogram was seen. Needle was withdrawn intact, skin was cleansed, and bandages were applied. Complications= none. Disposition= patient was placed in supine position and transferred to the recovery room area in stable condition and there was no evidence of upper or lower extremity motor or sensory deficit after the procedure patient was discharged from recovery room after discharge criteria met and home discharge instructions was given by the staff and patient will follow with the pain clinic in 2-4 weeks
--- NOTE | 2022-11-28 11:37 | FL ---
Intraoperative/procedural fluoroscopic services were provided. Total fluoroscopy time is 5 seconds wi th a total of 1 submitted images to PACS. Please see the operative/procedural note for further detail s.
[2022-11-28 11:42] VITALS: BP 125/84; PULSE 82
[2022-11-28] MEDS ORDERED: IV FLUID CONTINUATION 500 ML IV ONE (11:42)
== END 2022-11-28 11:57 | disposition home or self-care (01) ==
LOC: ORPAIN 09:51
PROVIDERS: ATTEND Specialist
DX: M50.123 Cervical disc disorder at C6-C7 level with radiculopathy (principal); M47.22 Other spondylosis with radiculopathy, cervical region; M48.02 Spinal stenosis, cervical region; Z91.030 Bee allergy status
CPT/HCPCS: 99152; 62321; J2250; J1100; J3010; Q9966

== ENCOUNTER → 2023-01-27 | Outpatient (CLI) | payer MEDICARE ==
[2023-01-27 12:13] VITALS: BP 123/81; PULSE 71; RESP 18; TEMP 98.1
--- NOTE | 2023-01-27 14:43 | P.PAINPG ---
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 Pt states she experienced 90 % pain relief x 7 days s/p procedure. Pain level is provoked at 10 /10 in intensity, constant, localized in the cervical spine, sharp in character w shooting towards the BL shoulderss. Pain is provoked by lifting. Pain is alleviated with medications, topicals, injections, heat, massage therapy in 2021, home stretching regimen, repositioning and rest. Interventional pain procedures completed include BL MBB C4-C6 x1 Patient is currently on Arco, Neurontin, Tyl Patient denies any side effects of the medication(s), denies excessive drowsiness or sleepiness, denies suicidal ideation and reports that the current pain medication is helping to control the pain and improve activities of daily living. Patient denies any motor or sensory deficits. Patient denies any fever or night sweats, denies any change in the bowel movements or urination. Physical Examination: -Constitutional: Cooperative. Not in acute distress . - Neurologic: Cranial nerve II to XII intact. No focal neurological deficits. - Psychatric: Alert & oriented x 3. Matching mood & appropriate affect. Judgment and insight intact. - Musculoskeletal: Cervical spine: Muscle bulk/ tone/ strength in the bilateral upper extremities normal Vertebral body tenderness to palpation over Spurling test positive Distraction test positive Facet loading test positive TTP over BL C4-C5, C5-C6 facets Thoracic spine Muscle bulk / tone/ strength in the bilateral paraspinal muscles normal Vertebral body tender to palpation over Facet loading test positive TTP Lumbar spine: Motor bulk/ tone/ strength lower extremities , thigh and legs : 5/5 Deep tendon reflexes : Normal Knee Jerk. Normal Ankle Jerk . Vertebral body tenderness to palpation over Lumbar Facet Loading Test positive Straight Leg Raise: positive at 30 degrees right side/ left side Gaenslen's Test positive Sacral spine : Severe tenderness over the Sacroiliac joint: right side / left side Range of motion: Flexion of the lumbar spine <60 degrees Range of motion: Extension of the lumbar spine <20 degrees Gaenslen's Test positive R / L Bashir test: positive right side / left side Thigh Thrust Test positive R / L Sacral Thrust Test positive R/ L Assessment and plan: Chronic neck pain secondary to cervical DDD, spondylosis with facet arthr opathy without myelopathy Recommendation of BL facet block of the medial branches C4-c5, c5-c6 #2. May need a series of injections, up until RFA, for optimal pain relief. Risks, benefits of procedure discussed and pt verbalized understanding. Admits to anticoagulant use or medical history of diabetes. Protocol for discontinuation/ continuation of medications lennox procedure discussed. Script for Arco 5/325mg #60 w 1 RF. UDS collected today 01/27/23. All questions answered. I have spent less than 30 minutes on patient care today. Dr Inman was available by phone for the evaluation of this patient. The time was used to review the medical records including relevant urine studies and Prescription history (MAPs), review of the available imaging, evaluation and examination of the patient, coordination of care with the medical staff and if applicable referring physicians, as well as creation of the medical record PQRS Narrative: Smoking Status Never smoker Narcotic Agreement Date Signed 04/01/22 Hx Alcohol Use (MH) Yes: 1 DRINK EVERY 2 WEEKS Home Medications: Ambulatory Orders ALPRAZolam 0.25 mg PO DAILY PRN 12/21/14 Pravastatin Sodium [Pravachol] 40 mg PO HS 01/03/15 Gabapentin [Neurontin] 100 mg PO BID 09/30/18 DULoxetine HCL [Cymbalta] 20 mg PO DAILY 04/15/22 Multivitamin [Multivitamins Adult Gummies] 1 each PO DAILY 04/15/22 Naproxen Sodium 550 mg PO BID-W/MEALS 30 Days #60 tablet 04/15/22 Oxybutynin Xl [Ditropan XL] 5 mg PO DAILY 04/15/22 Alendronate Sodium [Fosamax] 70 mg PO WE 11/26/22 Calcium Carbonate/Vitamin D3 [Calcium 600 mg-D3 10 Mcg (400 Iu)] 1 each PO DAILY 01/07/23 HYDROcodone/APAP 5-325MG [[place] 5-325] 1 tab PO Q12HR PRN 30 Days #60 tab 01/27/23 HYDROcodone/APAP 5-325MG [[place] 5-325] 1 tab PO Q12HR PRN 30 Days #60 tab 01/27/23 Controlled Substance Measures - Controlled Substance Measures Is patient prescribed a controlled substance at discharge?: Yes When asked, does pt state using other controlled substances?: Yes
== END ==
LOC: PNWHC3 09:52
PROVIDERS: ATTEND Specialist
DX: M50.30 Other cervical disc degeneration, unspecified cervical region (principal); M47.812 Spondylosis without myelopathy or radiculopathy, cervical region; G89.29 Other chronic pain; Z91.02 Food additives allergy status
CPT/HCPCS: 99212

== ENCOUNTER → 2023-02-04 | Outpatient (CLI) | payer MEDICARE ==
--- NOTE | 2023-02-04 12:07 | XR ---
EXAMINATION TYPE: XR chest 2V DATE OF EXAM: 02/04/2023 COMPARISON: 1121 TECHNIQUE: PA and lateral views submitted. HISTORY: Cough FINDINGS: The lungs are clear and there is no pneumothorax, pleural effusion, or focal pneumonia. Heart size normal and no overt failure. Osseous structures demonstrate hypertrophic and degenerative changes of the spine. Large hiatal hernia. IMPRESSION: 1. Large hiatal hernia..
== END ==
LOC: RADXRMAIN 11:38
PROVIDERS: ATTEND Internal Medicine
DX: K44.9 Diaphragmatic hernia without obstruction or gangrene (principal); R05.9 Cough, unspecified
CPT/HCPCS: 71046

== ENCOUNTER 2023-03-07 09:05 | Day surgery (SDC) | payer MEDICARE ==
[2023-03-07 09:24] VITALS: TEMP 99
[2023-03-07] MEDS ORDERED: methylPREDNISolone ACETATE 40 MG/ML 1 ML VIAL ONE (09:44)
[2023-03-07] MEDS ORDERED: ROPIVACAINE 5 MG/ML 20 ML AMPULE ONE (09:44)
[2023-03-07] MEDS ORDERED: fentaNYL (PF) 50 MCG/ML 2 ML AMP ONE (09:44)
[2023-03-07] MEDS ORDERED: MIDAZOLAM 2 MG/2 ML VIAL ONE (09:44)
--- NOTE | 2023-03-07 10:15 | P.PCN ---
Date of Procedure: 03/07/23 Procedure(s) Performed: PREOPERATIVE DIAGNOSIS: 1-Cervical Spondylosis with Facet Arthropathy.without myelopathy. 2-cervical degenerative disc disease POSTOPERATIVE DIAGNOSIS:1-cervical spondylosis with facet arthropathy without myelopathy. 2-cervical degenerative disc disease PROCEDURES: Diagnostic bilateral C4 , C5 , and C6 medial branch blocks, with fluoroscopic guidance (fluoroscopy images available in radiology department ) ( to target the facet joint at bilateral C4- 5 , C5- 6 )#2nd ANESTHESIA: Monitored anesthesia care as per anesthesia department . EBL: Minimal PROCEDURE INDICATION: The patient with neck pain secondary to cervical arthropathy unresponsive to more conservative treatments. PROCEDURE DESCRIPTION / TECHNIQUE: The patient was seen and identified in the preoperative area. Risks, benefits, complications, and alternatives were discussed with the patient, the patient agreed to proceed with the procedure and signed the consent. IV was started. Vital signs remained stable throughout the procedure. Patient was taken to the OR and time out was completed. The patient was placed in the lteral position on the procedure table ( right side up ). A pillow was placed under the patients chest to increase the cervical interlaminar space. The cervical area was prepped and draped in the usual sterile fashion. Critical pause was taken. Vital signs were closely monitored during the procedure. Conscious sedation was used during the procedure to decrease patients anxiety. Using cross-table lateral fluoroscopy, the centroid of the trapezoid of right C4 , C5 and C6, was identified, marked, and localized with 1% lidocaine 1 ml at each level for skin and Sub Q infiltrations . Subsequently, a 22 G 3 spinal needle was advanced guided by fluoroscopy to the centroid of the trapezoid of Right C4 , C5, C6 . Adell tip position was confirmed at the centroid of the trapezoids of Right C4 , C5 ,C6 with anteroposterior fluoroscopy. Subsequently, 2 ml of preservative-free Ropivacaine 0.5% mixed with Depo- Medrol 20 mg and half ml of the mixture was injected after negative aspiration for blood and CSF. Adell was then removed intact the same procedure was r epeated at the left C4 , C5 , and C6 levels. COMPLICATIONS: No acute complications. COMMENTS: The procedure done in lateral position because when we put patient in home position I was not able to visualize C5 and C6 vertebra, DISPOSITION / PLANS: The patient was placed in a supine position and transferred to the recovery area in a stable condition for observation and was discharged from the recovery room after meeting discharge criteria. Home discharge instructions given to the patient by the staff. The patient was reexamined prior to discharge. The patient will schedule a follow up in the clinic in 2-4 weeks.
[2023-03-07] MEDS ORDERED: IV FLUID CONTINUATION 1,000 ML IV ONE (10:18)
[2023-03-07 11:09] VITALS: RESP 15
[2023-03-07 11:10] VITALS: BP 142/64; PULSE 68
--- NOTE | 2023-03-07 11:27 | FL ---
EXAMINATION TYPE: FL guided pain mgmt statistic DATE OF EXAM: 03/07/2023 HISTORY: Fluoroscopy time Total dose area product (DAP) in uGy*m?, mGy*cm? (or similar): 0.0886 IMPRESSION: 1. Fluoroscopy time.
== END 2023-03-07 10:07 | disposition home or self-care (01) ==
LOC: ORPAIN 09:05
PROVIDERS: ATTEND Specialist
DX: M50.321 Other cervical disc degeneration at C4-C5 level (principal); M50.322 Other cervical disc degeneration at C5-C6 level; M47.812 Spondylosis without myelopathy or radiculopathy, cervical region; E78.5 Hyperlipidemia, unspecified; F41.9 Anxiety disorder, unspecified; M19.90 Unspecified osteoarthritis, unspecified site; Z79.899 Other long term (current) drug therapy
CPT/HCPCS: 64490; 64491; J2250; J1030; J3010; J2795

== ENCOUNTER → 2023-03-21 | Outpatient (CLI) | payer MEDICARE ==
[~2023-03-21] MED LIST changes: -LACTATED RINGERS 1,000 ML IV SCH; -LIDOCAINE 1% (10MG/ML) FOR IV START INTRADERMA PRN; +SODIUM CHLORIDE 0.9% 500 ML 500 ML in EMPTY BAG 1 BAG IV PRN; +ZOLEDRONIC ACID 5 MG in SODIUM CHLORIDE 0.9% 100 ML IV NR
[2023-03-21 13:52] VITALS: BP 131/79; PULSE 69; RESP 16; TEMP 97.5
== END ==
LOC: PROCWHC3 13:19
PROVIDERS: ATTEND Internal Medicine
DX: M81.0 Age-related osteoporosis without current pathological fracture (principal)
CPT/HCPCS: 96365; J3489

== ENCOUNTER → 2023-03-24 | Outpatient (CLI) | payer MEDICARE ==
[2023-03-24 11:57] VITALS: BP 150/74; PULSE 89; RESP 18; TEMP 98.4
--- NOTE | 2023-03-24 13:34 | P.PAINPG ---
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 Pt states she experienced 90% pain relief x 1 hr s/p procedure. Pain level is provoked at 7/10 in intensity, constant, localized in the cervical spine, achy in character w shooting towards the BL shoulders. Pain is provoked by lifting. Pain is alleviated with heat, medications, topical, repositioning and rest. Interventional pain procedures completed include BL MBB C4-C6 x2, RAMÓN C6-7 Patient is currently on Tyl, [place] Patient denies any side effects of the medication(s), denies excessive drowsiness or sleepiness, denies suicidal ideation and reports that the current pain medication is helping to control the pain and improve activities of daily living. Patient denies any motor or sensory deficits. Patient denies any fever or night sweats, denies any change in the bowel movements or urination. Physical Examination: -Constitutional: Cooperative. Not in acute distress . - Neurologic: Cranial nerve II to XII intact. No focal neurological deficits. - Psychatric: Alert & oriented x 3. Matching mood & appropriate affect. Judgment and insight intact. - Musculoskeletal: Cervical spine: Muscle bulk/ tone/ strength in the bilateral upper extremities normal Vertebral body tenderness to palpation over Spurling test positive Distraction test positive Facet loading test positive TTP over BL C4-5, C5-6 facets Thoracic spine Muscle bulk / tone/ strength in the bilateral paraspinal muscles normal Vertebral body tender to palpation over Facet loading test positive TTP Lumbar spine: Motor bulk/ tone/ strength lower extremities , thigh and legs : 5/5 Deep tendon reflexes : Normal Knee Jerk. Normal Ankle Jerk . Vertebral body tenderness to palpation over Lumbar Facet Loading Test positive Straight Leg Raise: positive at 30 degrees right side/ left side Gaenslen's Test positive Sacral spine : Severe tenderness over the Sacroiliac joint: right side / left side Range of motion: Flexion of the lumbar spine <60 degrees Range of motion: Extension of the lumbar spine <20 degrees Gaenslen's Test positive R / L Bashir test: positive right side / left side Thigh Thrust Test positive R / L Sacral Thrust Test positive R/ L Assessment and plan: Chronic neck pain secondary to cervical DDD, spondylosis with facet arthropathy without myelopathy Recommendation of BL RFA C4-C5, C5-C6. Pt exhbited sufficient and substantial pain relief w prior facet blocks of the medial branches. Risks, benefits of procedure discussed and pt verbalized understanding. Admits to anticoagulant use or medical history of diabetes. Protocol for discontinuation/ continuation of medications lennox procedure discussed. All questions answered. I have spent less than 30 minutes on patient care today. Dr Inman was a vailable by phone for the evaluation of this patient. The time was used to review the medical records including relevant urine studies and Prescription history (MAPs), review of the available imaging, evaluation and examination of the patient, coordination of care with the medical staff and if applicable referring physicians, as well as creation of the medical record PQRS Narrative: Smoking Status Never smoker Narcotic Agreement Date Signed 04/01/22 Hx Alcohol Use (MH) Yes: 1 DRINK EVERY 2 WEEKS Home Medications: Ambulatory Orders ALPRAZolam 0.25 mg PO DAILY PRN 12/21/14 Pravastatin Sodium [Pravachol] 40 mg PO HS 01/03/15 Gabapentin [Neurontin] 100 mg PO BID 09/30/18 DULoxetine HCL [Cymbalta] 20 mg PO DAILY 04/15/22 Multivitamin [Multivitamins Adult Gummies] 1 each PO DAILY 04/15/22 Oxybutynin Xl [Ditropan XL] 5 mg PO DAILY 04/15/22 Calcium Carbonate/Vitamin D3 [Calcium 600 mg-D3 10 Mcg (400 Iu)] 1 each PO DAILY 01/07/23 HYDROcodone/APAP 5-325MG [[place] 5-325] 1 tab PO Q12HR PRN 30 Days #60 tab 01/27/23 Acetaminophen Tab [Tylenol] 650 mg PO Q4-6H PRN 03/05/23 Controlled Substance Measures - Controlled Substance Measures Is patient prescribed a controlled substance at discharge?: Yes When asked, does pt state using other controlled substances?: Yes If prescribed controlled substance>3 days was MAPS reviewed?: Yes If Rx opioid, was Start Talking consent form obtained?: Yes Was information provided regarding opioid addiction?: Yes
== END ==
LOC: PNWHC3 10:02
PROVIDERS: ATTEND Specialist
DX: M50.322 Other cervical disc degeneration at C5-C6 level (principal); M47.812 Spondylosis without myelopathy or radiculopathy, cervical region; M50.321 Other cervical disc degeneration at C4-C5 level; G89.29 Other chronic pain; Z91.02 Food additives allergy status
CPT/HCPCS: 99211

== ENCOUNTER → 2023-03-26 | Outpatient (CLI) | payer MEDICARE ==
--- NOTE | 2023-03-27 22:45 | MM ---
Reason for Exam: Screening (asymptomatic). Last screening mammogram was performed 12 month(s) ago. Patient History: Menarche at age 11. First Full-Term at age 20. Postmenopausal. Estrogen for 10 years from age 57 until age 67. Progesterone for 10 years from age 57 until age 67. Excisional Biopsy on the Right side. 08/20/2007, Benign Core Biopsy on the left side. 01/19/1998, Benign Cyst Aspiration on the left side. 08/20/2007, Cancelled Left Mammotome on the left side. Maternal aunt had breast cancer, age 80. Risk Values: Priya 5 year model risk: 2.0%. NCI Lifetime model risk: 2.5%. Prior Study Comparison: 12/16/2019 Bilateral Screening Mammogram, [facility]. 02/08/2021 Bilateral Screening Mammogram, [facility]. 03/20/2022 Bilateral Screening Mammogram, [facility]. Tissue Density: The breast tissue is extremely dense which could obscure a lesion on mammography. Findings: Analyzed By CAD. Pattern appears symmetrical and stable. There are scattered benign calcifications present bilaterally. A core marker is within the left breast. Is there evident. No suspicious groups of microcalcifications, spiculated or lobular masses, architectural distortion or other secondary signs of malignancy are mammographically apparent. Overall Assessment: Benign, BI-RAD 2 Management: Screening Mammogram of both breasts in 1 year. A negative mammogram report should not preclude additional follow up of suspicious palpable abnormalities. Patient should continue monthly self breast exam. A clinical breast exam by your physician is recommended on an annual basis and results should be correlated with mammographic findings. Electronically signed and approved by: Lorenzo Dumas D.O. Radiologis
== END | disposition home or self-care (01) ==
LOC: RADMAMWWP 13:53
PROVIDERS: ATTEND Internal Medicine
DX: Z12.31 Encounter for screening mammogram for malignant neoplasm of breast (principal); Z78.0 Asymptomatic menopausal state; Z80.3 Family history of malignant neoplasm of breast
CPT/HCPCS: 77063; 77067

== ENCOUNTER 2023-04-25 06:57 | Day surgery (SDC) | payer MEDICARE ==
[2023-04-23 13:26] VITALS: BMI 24.7
[2023-04-25] MEDS ORDERED: LIDOCAINE 1% (10MG/ML) FOR IV START INTRADERMA PRN (07:12)
[2023-04-25] MEDS ORDERED: LACTATED RINGERS 1,000 ML IV SCH (07:12)
[2023-04-25 07:30] VITALS: TEMP 97
[2023-04-25] MEDS ORDERED: LACTATED RINGERS 1,000 ML IV ONE (08:00)
[2023-04-25] MEDS ORDERED: methylPREDNISolone ACETATE 40 MG/ML 1 ML VIAL ONE (08:28)
[2023-04-25] MEDS ORDERED: MIDAZOLAM 2 MG/2 ML VIAL ONE (08:28)
[2023-04-25] MEDS ORDERED: fentaNYL (PF) 50 MCG/ML 2 ML AMP ONE (08:28)
[2023-04-25] MEDS ORDERED: ROPIVACAINE 5 MG/ML 20 ML AMPULE ONE (08:28)
--- NOTE | 2023-04-25 09:14 | P.PCN ---
Date of Procedure: 04/25/23 Procedure(s) Performed: PREOPERATIVE DIAGNOSIS: Cervical spondylosis with Facet Arthropathy without myelopathy. POSTOPERATIVE DIAGNOSIS: Cervical spondylosis with Facet Arthropathy without myelopathy. PROCEDURES: Radiofrequency thermocoagulation bilateral C4, C5, C6 medial branch with Fluroscopy [place](fluoroscopy was available in Radiology department ) (to denervate the facet joint at bilateral C4- 5 , C5- 6 ) ANESTHESIA: Monitored anesthesia care as per anesthesia department . EBL: Minimal PROCEDURE INDICATION: The patient with neck pain secondary to cervical arthropathy who had more than 50% relief of her pain with previous diagnostic cervical medial branch block. PROCEDURE DESCRIPTION / TECHNIQUE: The patient was seen and identified in the preoperative area. Risks, benefits, complications, and alternatives were discussed with the patient, the patient agreed to proceed with the procedure and signed the consent. IV was started. Vital signs remained stable throughout the procedure. Patient was taken to the OR and time out was completed. The patient was placed in the prone position on the procedure table. A pillow was placed under the patients chest to increase the cervical interlaminar space. The cervical area was prepped and draped in the usual sterile fashion. Critical pause was taken. Vital signs were closely monitored during the procedure. Conscious sedation was used during the procedure to decrease patients anxiety. Using cross-table lateral fluoroscopy, the centroid of the trapezoid of right C4, C5, and C6 were identified, marked, and localized with 1% lidocaine. Subsequently, a 20 -ae radiofrequency cannula with a 10-mm active tip was advanced guided by fluoroscopy to the centroid of the trapezoid of right C4, C5, and C6 . Needle tip position was confirmed at the centroid of the trapezoids of right C4, C5, and C6 with anteroposterior fluoroscopy. Each site then underwent sensory testing at 50 Hz and 0 to 1 volt and motor testing at 2 Hz and 0 to 3 volt with local stimulation, but no radicular symptoms down the arm. Thereafter each sites underwent radiofrequency thermocoagulation at 80 degrees celsius for 90 seconds after injecting 0.5 ml of PF Ropivacaine 0.5 %. After thermocoagulation, 1 ml of the block solution containing Depo-Medrol 20 mg and 3mL of preservative-free normal saline was injected at the right C4, C5, and C6 levels after negative aspiration of CSF and blood and with no par esthesias. Cannulas were retracted and then the exact same procedure done for the left side at C4, C5, and C6 level. At the end of the procedure Skin was cleansed and bandages were applied. COMPLICATIONS: No acute complications. DISPOSITION / PLANS: The patient was placed in a supine position and transferred to the recovery area in a stable condition for observation and was discharged from the recovery room after meeting discharge criteria. Home discharge instructions given to the patient by the staff. The patient was reexamined prior to discharge. The patient will schedule a follow up in the clinic in 2-4 weeks.
[2023-04-25 09:32] VITALS: BP 158/90; PULSE 61; RESP 15
--- NOTE | 2023-04-25 10:03 | FL ---
EXAMINATION TYPE: FL guided pain mgmt statistic DATE OF EXAM: 04/25/2023 HISTORY: Fluoroscopy time Total dose area product (DAP) in uGy*m?, mGy*cm? (or similar): 0.18024 IMPRESSION: 1. Fluoroscopy time.
== END 2023-04-25 09:45 | disposition home or self-care (01) ==
LOC: ORPAIN 06:57
PROVIDERS: ATTEND Specialist
DX: M47.812 Spondylosis without myelopathy or radiculopathy, cervical region (principal); E78.5 Hyperlipidemia, unspecified; M19.90 Unspecified osteoarthritis, unspecified site; Z91.030 Bee allergy status; Z79.899 Other long term (current) drug therapy
CPT/HCPCS: 64633; 64634 ×2; J2250; J1030; J3010; J2795

== ENCOUNTER → 2023-05-19 | Outpatient (CLI) | payer MEDICARE ==
[2023-05-19 11:08] VITALS: BP 141/83; PULSE 72; RESP 18; TEMP 98.5
--- NOTE | 2023-05-19 14:31 | P.PAINPG ---
PQRS Measure Charge Sheet Comment: A 83 yr old female w at side with a history of severe and chronic neck pain secondary to cervical DDD and spondylosis with facet arthropathy without myelopathy presents today for evaluation s/p BL RFA C4-C5, C5-C6. Pt states she experienced 96% pain relief s/p procedure. Pain level is provoked at 1/10 in intensity, constant, localized in the cervical spine, achy in character w shooting towards the BL shoulders. Pain is provoked by lifting. Pain is alleviated with heat, medications, topical, repositioning and rest. Interventional pain procedures completed include BL MBB C4-C6 x2, RAMÓN C6-7 Patient is currently on Tyl, [place], Neurontin Patient denies any side effects of the medication(s), denies excessive drowsiness or sleepiness, denies suicidal ideation and reports that the current pain medication is helping to control the pain and improve activities of daily living. Patient denies any motor or sensory deficits. Patient denies any fever or night sweats, denies any change in the bowel movements or urination. Physical Examination: -Constitutional: Cooperative. Not in acute distress . - Neurologic: Cranial nerve II to XII intact. No focal neurological deficits. - Psychatric: Alert & oriented x 3. Matching mood & appropriate affect. Judgment and insight intact. - Musculoskeletal: Cervical spine: Muscle bulk/ tone/ strength in the bilateral upper extremities normal Vertebral body tenderness to palpation over Spurling test positive Distraction test positive Facet loading test positive TTP Thoracic spine Muscle bulk / tone/ strength in the bilateral paraspinal muscles normal Vertebral body tender to palpation over Facet loading test positive TTP Lumbar spine: Motor bulk/ tone/ strength lower extremities , thigh and legs : 5/5 Deep tendon reflexes : Normal Knee Jerk. Normal Ankle Jerk . Vertebral body tenderness to palpation over Lumbar Facet Loading Test positive Straight Leg Raise: positive at 30 degrees right side/ left side Gaenslen's Test positive Sacral spine : Severe tenderness over the Sacroiliac joint: right side / left side Range of motion: Flexion of the lumbar spine <60 degrees Range of motion: Extension of the lumbar spine <20 degrees Gaenslen's Test positive R / L Bashir test: positive right side / left side Thigh Thrust Test positive R / L Sacral Thrust Test positive R/ L Assessment and plan: Chronic neck pain secondary to cervical DDD, spondylosis with facet arthropathy without myelopathy Recommendation of medication management. [place] 5/325mg #60 w 1 RF. Use, side effects, adverse reactions and safe storage discussed. All questions answered. I have spent less than 30 minutes on patient care today. Dr Inman was available by phone for the evaluation of this patient. The time was used to review the medical records including relevant urine studies and Prescription history (MAPs), review of the available imaging, evaluation and examination of the patient, coordination of care with the medical staff and if applicable referring physicians, as well as creation of the medical record PQRS Narrative: Smoking Status Never smoker Narcotic Agreement Date Signed 04/01/22 Hx Alcohol Use (MH) Yes: 1 DRINK EVERY 2 WEEKS Home Medications: Ambulatory Orders ALPRAZolam 0.25 mg PO DAILY PRN 12/21/14 Pravastatin Sodium [Pravachol] 40 mg PO HS 01/03/15 Gabapentin [Neurontin] 100 mg PO BID 09/30/18 DULoxetine HCL [Cymbalta] 20 mg PO DAILY 04/15/22 Multivitamin [Multivitamins Adult Gummies] 1 each PO DAILY 04/15/22 Oxybutynin Xl [Ditropan XL] 5 mg PO DAILY 04/15/22 Calcium Carbonate/Vitamin D3 [Calcium 600 mg-D3 10 Mcg (400 Iu)] 1 each PO DAILY 01/07/23 Acetaminophen Tab [Tylenol] 650 mg PO Q4-6H PRN 03/05/23 HYDROcodone/APAP 5-325MG [[place] 5-325] 1 tab PO BID PRN 30 Days #60 tab 05/19/23 HYDROcodone/APAP 5-325MG [[place] 5-325] 1 tab PO Q12HR PRN 30 Days #60 tab 05/19/23 Controlled Substance Measures - Controlled Substance Measures Is patient prescribed a controlled substance at discharge?: Yes When asked, does pt state using other controlled substances?: Yes If prescribed controlled substance>3 days was MAPS reviewed?: Yes
== END ==
LOC: PNWHC3 10:02
PROVIDERS: ATTEND Specialist
DX: M50.30 Other cervical disc degeneration, unspecified cervical region (principal); M47.812 Spondylosis without myelopathy or radiculopathy, cervical region; G89.29 Other chronic pain; M53.3 Sacrococcygeal disorders, not elsewhere classified; Z91.030 Bee allergy status
CPT/HCPCS: 99211

== ENCOUNTER → 2023-07-10 | Outpatient (CLI) | payer MEDICARE ==
[2023-07-10 10:46] VITALS: BP 140/84; PULSE 73; RESP 15; TEMP 98.7
--- NOTE | 2023-07-10 14:52 | P.PAINPG ---
PQRS Measure Charge Sheet Comment: A 83 yr old female w at side with a history of severe and chronic neck pain secondary to cervical DDD and spondylosis with facet arthropathy without myelopathy presents today for medication refills and evaluation s/p BL RFA C4- C6. Pt states she experienced 100% pain relief s/p procedure. Pain level is provoked at 1/10 in intensity, constant, localized in the cervical spine, achy in character w shooting towards the BL shoulders. Pain is provoked by lifting. Pain is alleviated with heat, medications, topical, repositioning and rest. She would like to reduce the quantity of pain medication at this time. Interventional pain procedures completed include BL RFA C4-C6, RAMÓN C6-7 Patient is currently on Tyl, [place], Neurontin Patient denies any side effects of the medication(s), denies excessive drowsiness or sleepiness, denies suicidal ideation and reports that the current pain medication is helping to control the pain and improve activities of daily living. Patient denies any motor or sensory deficits. Patient denies any fever or night sweats, denies any change in the bowel movements or urination. Physical Examination: -Constitutional: Cooperative. Not in acute distress . - Neurologic: Cranial nerve II to XII intact. No focal neurological deficits. - Psychatric: Alert & oriented x 3. Matching mood & appropriate affect. Judgment and insight intact. - Musculoskeletal: Cervical spine: Muscle bulk/ tone/ strength in the bilateral upper extremities normal Vertebral body tenderness to palpation over Spurling test positive Distraction test positive Facet loading test positive TTP Thoracic spine Muscle bulk / tone/ strength in the bilateral paraspinal muscles normal Vertebral body tender to palpation over Facet loading test positive TTP Lumbar spine: Motor bulk/ tone/ strength lower extremities , thigh and legs : 5/5 Deep tendon reflexes : Normal Knee Jerk. Normal Ankle Jerk . Vertebral body tenderness to palpation over Lumbar Facet Loading Test positive Straight Leg Raise: positive at 30 degrees right side/ left side Gaenslen's Test positive Sacral spine : Severe tenderness over the Sacroiliac joint: right side / left side Range of motion: Flexion of the lumbar spine <60 degrees Range of motion: Extension of the lumbar spine <20 degrees Gaenslen's Test positive R / L Bashir test: positive right side / left side Thigh Thrust Test positive R / L Sacral Thrust Test positive R/ L Assessment and plan: Chronic neck pain secondary to cervical DDD, spondylosis with facet arthropathy without myelopathy Recommendation of medication management. [place] 5/325mg #45 w 1 RF. Use, side effects, adverse reactions and safe storage discussed. All questions answered. I have spent less than 30 minutes on patient care today. Dr Inman was available by phone for the evaluation of this patient. The time was used to review the medical records including relevant urine studies and Prescription history (MAPs), review of the available imaging, evaluation and examination of the patient, coordination of care with the medical staff and if applicable referring physicians, as well as creation of the medical record PQRS Narrative: Smoking Status Never smoker Narcotic Agreement Date Signed 04/01/22 Hx Alcohol Use (MH) Yes: 1 DRINK EVERY 2 WEEKS Home Medications: Ambulatory Orders ALPRAZolam 0.25 mg PO DAILY PRN 12/21/14 Pravastatin Sodium [Pravachol] 40 mg PO HS 01/03/15 Gabapentin [Neurontin] 100 mg PO BID 09/30/18 DULoxetine HCL [Cymbalta] 20 mg PO DAILY 04/15/22 Multivitamin [Multivitamins Adult Gummies] 1 each PO DAILY 04/15/22 Oxybutynin Xl [Ditropan XL] 5 mg PO DAILY 04/15/22 Calcium Carbonate/Vitamin D3 [Calcium 600 mg-D3 10 Mcg (400 Iu)] 1 each PO DAILY 01/07/23 Acetaminophen Tab [Tylenol] 650 mg PO Q4-6H PRN 03/05/23 HYDROcodone/APAP 5-325MG [[place] 5-325] 1 tab PO BID PRN 30 Days #45 tab 07/10/23 HYDROcodone/APAP 5-325MG [[place] 5-325] 1 tab PO Q12HR PRN 30 Days #45 tab Controlled Substance Measures - Controlled Substance Measures Is patient prescribed a controlled substance at discharge?: Yes When asked, does pt state using other controlled substances?: Yes If prescribed controlled substance>3 days was MAPS reviewed?: Yes
== END ==
LOC: PNWHC3 10:24
PROVIDERS: ATTEND Specialist
DX: M50.30 Other cervical disc degeneration, unspecified cervical region (principal); M47.812 Spondylosis without myelopathy or radiculopathy, cervical region; G89.29 Other chronic pain; Z91.030 Bee allergy status
CPT/HCPCS: 99211

== ENCOUNTER → 2023-09-01 | Outpatient (CLI) | payer MEDICARE ==
[2023-09-01 13:21] VITALS: BP 146/88; PULSE 71; RESP 16; TEMP 98.4
--- NOTE | 2023-09-01 14:21 | P.PAINPG ---
PQRS Measure Charge Sheet Comment: A 83 yr old female w at side with a history of severe and chronic neck pain secondary to cervical DDD and spondylosis with facet arthropathy without myelopathy presents today for medication refills. Pain level is provoked at 1/10 in intensity, constant, localized in the cervical spine, achy in character w shooting towards the BL shoulders. Pain is provoked by lifting. Pain is alleviated with heat, medications, topical, repositioning and rest. She would like to reduce the quantity of pain medication at this time. Interventional pain procedures completed include BL RFA C4-C6, RAMÓN C6-7 Patient is currently on Tyl, [place], Neurontin Patient denies any side effects of the medication(s), denies excessive drowsiness or sleepiness, denies suicidal ideation and reports that the current pain medication is helping to control the pain and improve activities of daily living. Patient denies any motor or sensory deficits. Patient denies any fever or night sweats, denies any change in the bowel movements or urination. Physical Examination: -Constitutional: Cooperative. Not in acute distress . - Neurologic: Cranial nerve II to XII intact. No focal neurological deficits. - Psychatric: Alert & oriented x 3. Matching mood & appropriate affect. Judgment and insight intact. - Musculoskeletal: Cervical spine: Muscle bulk/ tone/ strength in the bilateral upper extremities normal Vertebral body tenderness to palpation over Spurling test positive Distraction test positive Facet loading test positive TTP Thoracic spine Muscle bulk / tone/ strength in the bilateral paraspinal muscles normal Vertebral body tender to palpation over Facet loading test positive TTP Lumbar spine: Motor bulk/ tone/ strength lower extremities , thigh and legs : 5/5 Deep tendon reflexes : Normal Knee Jerk. Normal Ankle Jerk . Vertebral body tenderness to palpation over Lumbar Facet Loading Test positive Straight Leg Raise: positive at 30 degrees right side/ left side Gaenslen's Test positive Sacral spine : Severe tenderness over the Sacroiliac joint: right side / left side Range of motion: Flexion of the lumbar spine <60 degrees Range of motion: Extension of the lumbar spine <20 degrees Gaenslen's Test positive R / L Bashir test: positive right side / left side Thigh Thrust Test positive R / L Sacral Thrust Test positive R/ L Assessment and plan: Chronic neck pain secondary to cervical DDD, spondylosis with facet arthropathy without myelopathy Recommendation of PT x 6 wks M50.30 and medication management. [place] 5/325mg #45 w 1 RF. UDS from Jan 2023 reviewed and consistent. Use, side effects, adverse reactions and safe storage discussed. All questions answered. I have spent less than 30 minutes on patient care today. Dr Inman was available by phone for the evaluation of this patient. The time was used to review the medical records including relevant urine studies and Prescription history (MAPs), review of the available imaging, evaluation and examination of the patient, coordination of care with the medical staff and if applicable referring physicians, as well as creation of the medical record PQRS Narrative: Smoking Status Never smoker Narcotic Agreement Date Signed 04/01/22 Hx Alcohol Use (MH) Yes: 1 DRINK EVERY 2 WEEKS Home Medications: Ambulatory Orders ALPRAZolam 0.25 mg PO DAILY PRN 12/21/14 Pravastatin Sodium [Pravachol] 40 mg PO HS 01/03/15 Gabapentin [Neurontin] 100 mg PO BID 09/30/18 DULoxetine HCL [Cymbalta] 20 mg PO DAILY 04/15/22 Multivitamin [Multivitamins Adult Gummies] 1 each PO DAILY 04/15/22 Oxybutynin Xl [Ditropan XL] 5 mg PO DAILY 04/15/22 Calcium Carbonate/Vitamin D3 [Calcium 600 mg-D3 10 Mcg (400 Iu)] 1 each PO DAILY 01/07/23 Acetaminophen Tab [Tylenol] 650 mg PO Q4-6H PRN 03/05/23 HYDROcodone/APAP 5-325MG [[place] 5-325] 1 tab PO BID PRN 30 Days #45 tab 09/01/23 HYDROcodone/APAP 5-325MG [[place] 5-325] 1 tab PO Q12HR PRN 30 Days #45 tab 09/01/23 Controlled Substance Measures - Controlled Substance Measures Is patient prescribed a controlled substance at discharge?: Yes When asked, does pt state using other controlled substances?: Yes If prescribed controlled substance>3 days was MAPS reviewed?: Yes
== END ==
LOC: PNWHC3 08:28
PROVIDERS: ATTEND Specialist
DX: M50.30 Other cervical disc degeneration, unspecified cervical region (principal); M47.812 Spondylosis without myelopathy or radiculopathy, cervical region; G89.29 Other chronic pain; Z91.030 Bee allergy status
CPT/HCPCS: 99211

== ENCOUNTER → 2023-10-27 | Outpatient (CLI) | payer MEDICARE ==
--- NOTE | 2023-10-27 10:46 | P.PAINPG ---
PQRS Measure Charge Sheet Comment: A 83 yr old female w at side with a history of severe and chronic neck pain secondary to cervical DDD and spondylosis with facet arthropathy without myelopathy presents today for medication refills. Pain level is provoked at 1/10 in intensity, constant, localized in the cervical spine, predominantly axial, achy in character w occasional shooting towards the BL shoulders. Pain is provoked by lifting. Pain is alleviated with heat, medications, topical, repositioning and rest. Cervical disability score 17. Interventional pain procedures completed include BL RFA C4-C6, RAMÓN C6-7 Patient is currently on Tyl, Norco5/325mg #45, Neurontin Patient denies any side effects of the medication(s), denies excessive drowsiness or sleepiness, denies suicidal ideation and reports that the current pain medication is helping to control the pain and improve activities of daily living. Patient denies any motor or sensory deficits. Patient denies any fever or night sweats, denies any change in the bowel movements or urination. Physical Examination: -Constitutional: Cooperative. Not in acute distress . - Neurologic: Cranial nerve II to XII intact. No focal neurological deficits. - Psychatric: Alert & oriented x 3. Matching mood & appropriate affect. Judgment and insight intact. - Musculoskeletal: Cervical spine: Muscle bulk/ tone/ strength in the bilateral upper extremities normal Vertebral body tenderness to palpation over Spurling test positive Distraction test positive Facet loading test positive TTP Thoracic spine Muscle bulk / tone/ strength in the bilateral paraspinal muscles normal Vertebral body tender to palpation over Facet loading test positive TTP Lumbar spine: Motor bulk/ tone/ strength lower extremities , thigh and legs : 5/5 Deep tendon reflexes : Normal Knee Jerk. Normal Ankle Jerk . Vertebral body tenderness to palpation over Lumbar Facet Loading Test positive Straight Leg Raise: positive at 30 degrees right side/ left side Gaenslen's Test positive Sacral spine : Severe tenderness over the Sacroiliac joint: right side / left side Range of motion: Flexion of the lumbar spine <60 degrees Range of motion: Extension of the lumbar spine <20 degrees Gaenslen's Test positive R / L Bashir test: positive right side / left side Thigh Thrust Test positive R / L Sacral Thrust Test positive R/ L Assessment and plan: Chronic neck pain secondary to cervical DDD, spondylosis with facet arthropathy without myelopathy Recommendation of PT x 6 wks M50.30 w therapeutic massage and medication management. [place] 5/325mg #45, Flexeril 5mg #30 w 1 RF. Blood tox screen ordered 10/27/23. Use, side effects, adverse reactions and safe storage discussed. All questions answered. I have spent less than 30 minutes on patient care today. Dr Inman was available by phone for the evaluation of this patient. The time was used to review the medical records including relevant urine studies and Prescription history (MAPs), review of the available imaging, evaluation and examination of the patient, coordination of care with the medical staff and if applicable referring physicians, as well as creation of the medical record PQRS Narrative: Smoking Status Never smoker Narcotic Agreement Date Signed 04/01/22 Hx Alcohol Use (MH) Yes: 1 DRINK EVERY 2 WEEKS Home Medications: Ambulatory Orders ALPRAZolam 0.25 mg PO DAILY PRN 12/21/14 Pravastatin Sodium [Pravachol] 40 mg PO HS 01/03/15 Gabapentin [Neurontin] 100 mg PO BID 09/30/18 DULoxetine HCL [Cymbalta] 20 mg PO DAILY 04/15/22 Multivitamin [Multivitamins Adult Gummies] 1 each PO DAILY 04/15/22 Oxybutynin Xl [Ditropan XL] 5 mg PO DAILY 04/15/22 Calcium Carbonate/Vitamin D3 [Calcium 600 mg-D3 10 Mcg (400 Iu)] 1 each PO DAILY 01/07/23 Acetaminophen Tab [Tylenol] 650 mg PO Q4-6H PRN 03/05/23 Cyclobenzaprine [Flexeril] 5 mg PO HS PRN 30 Days #30 tab 10/27/23 HYDROcodone/APAP 5-325MG [[place] 5-325] 1 tab PO BID PRN 30 Days #45 tab 10/27/23 HYDROcodone/APAP 5-325MG [[place] 5-325] 1 tab PO Q12HR PRN 30 Days #45 tab 10/27/23 Controlled Substance Measures - Controlled Substance Measures Is patient prescribed a controlled substance at discharge?: Yes When asked, does pt state using other controlled substances?: Yes If prescribed controlled substance>3 days was MAPS reviewed?: Yes
[2023-10-27 11:04] VITALS: BP 142/80; PULSE 75; RESP 16; TEMP 97.8
[2023-10-28 07:35] LABS: Serum Amphetamine Negative; Serum Barbiturates Negative; Serum Benzodiazepine Negative; Serum Cocaine Negative; Serum Methadone Negative; Serum Opiates Negative; Serum Phencyclidine Negative; Serum Propoxyphene Negative; Serum THC (Cannabis) Negative
== END ==
LOC: PNWHC3 09:34
PROVIDERS: ATTEND Specialist
DX: M50.30 Other cervical disc degeneration, unspecified cervical region (principal); M47.812 Spondylosis without myelopathy or radiculopathy, cervical region; G89.29 Other chronic pain; Z91.030 Bee allergy status; Z02.83 Encounter for blood-alcohol and blood-drug test
CPT/HCPCS: 80307; G0463; 99211

== ENCOUNTER → 2023-12-22 | Outpatient (CLI) | payer MEDICARE ==
[2023-12-22 10:33] VITALS: BP 159/87; PULSE 61; RESP 16
--- NOTE | 2023-12-22 14:36 | P.PAINPG ---
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 Pain level is provoked at 1/10 in intensity, constant, localized in the cervical spine, predominantly axial, achy in c haracter w occasional shooting towards the BL shoulders. Pain is provoked by lifting. Pain is alleviated with heat, medications, topical, repositioning and rest. Cervical disability score 16. Interventional pain procedures completed include BL RFA C4-C6, RAMÓN C6-7 Patient is currently on Tyl, Norco5/325mg #30, Neurontin Patient denies any side effects of the medication(s), denies excessive drowsin ess or sleepiness, denies suicidal ideation and reports that the current pain medication is helping to control the pain and improve activities of daily living. Patient denies any motor or sensory deficits. Patient denies any fever or night sweats, denies any change in the bowel movements or urination. Physical Examination: -Constitutional: Cooperative. Not in acute distress . - Neurologic: Cranial nerve II to XII intact. No focal neurological deficits. - Psychatric: Alert & oriented x 3. Matching mood & appropriate affect. Judgment and insight intact. - Musculoskeletal: Cervical spine: Muscle bulk/ tone/ strength in the bilateral upper extremities normal Vertebral body tenderness to palpation over Spurling test positive Distraction test positive Facet loading test positive TTP Thoracic spine Muscle bulk / tone/ strength in the bilateral paraspinal muscles normal Vertebral body tender to palpation over Facet loading test positive TTP Lumbar spine: Motor bulk/ tone/ strength lower extremities , thigh and legs : 5/5 Deep tendon reflexes : Normal Knee Jerk. Normal Ankle Jerk . Vertebral body tenderness to palpation over Lumbar Facet Loading Test positive Straight Leg Raise: positive at 30 degrees right side/ left side Gaenslen's Test positive Sacral spine : Severe tenderness over the Sacroiliac joint: right side / left side Range of motion: Flexion of the lumbar spine <60 degrees Range of motion: Extension of the lumbar spine <20 degrees Gaenslen's Test positive R / L Bashir test: positive right side / left side Thigh Thrust Test positive R / L Sacral Thrust Test positive R/ L Assessment and plan: Chronic neck pain secondary to cervical DDD, spondylosis with facet arthropathy without myelopathy Recommendation of medication management. Fowler 5/325mg #30 reduced quantity, Flexeril 5mg #30 w 1 RF. Blood tox screen fr 10/27/23 NEG for Opiates. Opiates/ Narcotic agreement updated 12/22/23. Use, side effects, adverse reactions and safe storage discussed. All questions answered. I have spent less than 30 minutes on patient care today. Dr Inman was available by phone for the evaluation of this patient. The time was used to review the medical records including relevant urine studies and Prescription history (MAPs), review of the available imaging, evaluation and examination of the patient, coordination of care with the medical staff and if applicable referring physicians, as well as creation of the medical record PQRS Narrative: Smoking Status Never smoker Narcotic Agreement Date Signed 04/01/22 Hx Alcohol Use (MH) Yes: 1 DRINK EVERY 2 WEEKS Home Medications: Ambulatory Orders ALPRAZolam 0.25 mg PO DAILY PRN 12/21/14 Pravastatin Sodium [Pravachol] 40 mg PO HS 01/03/15 Gabapentin [Neurontin] 100 mg PO BID 09/30/18 DULoxetine HCL [Cymbalta] 20 mg PO DAILY 04/15/22 Multivitamin [Multivitamins Adult Gummies] 1 each PO DAILY 04/15/22 Oxybutynin Xl [Ditropan XL] 5 mg PO DAILY 04/15/22 Calcium Carbonate/Vitamin D3 [Calcium 600 mg-D3 10 Mcg (400 Iu)] 1 each PO DAILY 01/07/23 Acetaminophen Tab [Tylenol] 650 mg PO Q4-6H PRN 03/05/23 Cyclobenzaprine [Flexeril] 5 mg PO HS PRN 30 Days #30 tab 10/27/23 HYDROcodone/APAP 5-325MG [Fowler 5-325] 1 tab PO BID PRN 30 Days #45 tab 10/27/23 HYDROcodone/APAP 5-325MG [Fowler 5-325] 1 tab PO Q12HR PRN 30 Days #45 tab 10/27/23 Controlled Substance Measures - Controlled Substance Measures Is patient prescribed a controlled substance at discharge?: Yes When asked, does pt state using other controlled substances?: Yes If prescribed controlled substance>3 days was MAPS reviewed?: Yes If Rx opioid, was Start Talking consent form obtained?: Yes Was information provided regarding opioid addiction?: Yes
== END ==
LOC: PNWHC3 09:56
PROVIDERS: ATTEND Specialist
DX: M50.30 Other cervical disc degeneration, unspecified cervical region (principal); M47.812 Spondylosis without myelopathy or radiculopathy, cervical region; G89.29 Other chronic pain; Z91.030 Bee allergy status
CPT/HCPCS: 99211

== ENCOUNTER → 2023-12-24 | Outpatient (CLI) | payer MEDICARE ==
[2023-12-24 15:32] LABS: Basophils # (A) 0.04 X 10*3/uL (0.00-0.10); Basophils % (A) 0.6 %; Eosinophils # (A) 0.26 X 10*3/uL (0.04-0.35); HCT 47.4 % (37.2-46.3); HGB 14.8 g/dL (12.0-15.0); Lymphocytes # (A) 1.58 X 10*3/uL (0.90-5.00); Lymphocytes % (A) 24.2 %; MCH 29.2 pg (27.0-32.0); MCHC 31.2 g/dL (32.0-37.0); MCV 93.5 FL (80.0-97.0); Mean Platelet Volume 11.4 FL (9.5-12.2); Monocytes # (A) 0.52 X 10*3/uL (0.20-1.00); NRBC Per 100 WBC 0 X 10*3/uL (0.00-0.01); Neutrophils # (A) 4.13 X 10*3/uL (1.80-7.70); Platelet Count 226 X 10*3/uL (140-440); RBC 5.07 X 10*6/uL (4.10-5.20); RDW 13.3 % (11.5-14.5); WBC 6.54 X 10*3/uL (4.50-10.00)
[2023-12-24 15:58] LABS: ALT 15 U/L (8-44); AST 22 U/L (13-35); Albumin 4.7 g/dL (3.8-4.9); Albumin/Globulin Ratio 1.88 Ratio (1.60-3.17); Alkaline Phosphatase 61 U/L (41-126); BUN/Creat Ratio 14.11 Ratio (12.00-20.00); Blood Urea Nitrogen 12.7 mg/dL (9.0-27.0); Carbon Dioxide 27.8 mmol/L (21.6-31.8); Chloride 105 mmol/L (96-109); Chol/HDL Ratio 2.47 Ratio; Globulin 2.5 g/dL (1.6-3.3); Glucose 77 mg/dL (70-110); Potassium 4.3 mmol/L (3.5-5.5); Sodium 145 mmol/L (135-145); Total Bilirubin 0.7 mg/dL (0.3-1.2); Total Protein 7.2 g/dL (6.2-8.2)
== END | disposition home or self-care (01) ==
LOC: LABWHC1 08:34
PROVIDERS: ATTEND Internal Medicine
DX: E78.5 Hyperlipidemia, unspecified (principal); M81.0 Age-related osteoporosis without current pathological fracture
CPT/HCPCS: 36415; 80053; 80061; 82306; 84443; 85025

== ENCOUNTER → 2024-02-16 | Outpatient (CLI) | payer MEDICARE ==
[2024-02-16 11:38] VITALS: BP 122/80; PULSE 79; RESP 16; TEMP 97.3
--- NOTE | 2024-02-16 20:27 | P.PAINPG ---
Subjective Progress Note Date: 02/16/24 Principal diagnosis: neck pain Mr. Joe is a 83 -year-old pleasant Female came to the [facility] pain clinic for Follow-up visit for his lumbar, and neck pain. Patient has ongoing pain for many years. Patient describes pain is aching, throbbing, constant type of pain.As per the patient is pain is not radiating to his upper or lower extremities at this time. Patient rated pain levels are 2-4 out of 10 in severity. With the help of medications pain levels are 0 out of 10 in severity. Activities making pain worse. Medications, resting, Exercises helping in relieving patient's pain. She tried cervical epidural, and cervical medial branch block radiofrequency ablations with good pain relief. Patient pain some days better than others. Overall activities decreased secondary to pain. Because of the pain sometimes patient is feeling lack of sleep, interest, and energy. Denied any side effects with the medications. Denied any bowel or bladder problems at this time. Patient denies any suicidal or homicidal ideations intent or plan. Patient denies any auditory or visual hallucinations. Patient denied any red flag symptoms related to pain. Objective - Vital Signs Vital signs: Vital Signs Temp 97.3 F L 02/16/24 11:14 Pulse 79 02/16/24 11:14 Resp 16 02/16/24 11:14 BP 122/80 02/16/24 11:14 Pulse Ox 97 02/16/24 11:14 FiO2 Intake & Output 02/15/24 02/16/24 02/16/24 18:59 06:59 18:59 Weight 57.606 kg - Exam General: Well-developed, well-nourished, no acute distress HEENT: Normocephalic, and atraumatic Neck: Supple, no neck swelling Psychiatric: Appropriate mood, and affect [employer]: No focal neurological deficits Musculoskeletal: Upper extremity: Normal strength, and range of motion. Sensation grossly intact Lower extremity: Normal strength, and decreased range of motion secondary to pain Lumbar spine: Paravertebral tenderness: positive Lumbar facet load test : Negative Sacroiliac joint tenderness: Negative Cervical spine: Paravertebral tenderness: Positive Cervical spine facet berna: Positive Cervical spine Spurling test: Negative - Constitutional Constitutional Comment(s): 12 point review of symptoms negative except as mentioned in the history of present illness Assessment and Plan Assessment: cervical radiculopathy and cervical spondylosis without myelopathy Cervical myofascial pain syndrome Plan: #1 Diagnoses, prognosis, and multiple treatment options including but not limited to physical therapy, interventional therapy, adjunct medication therapy, narcotic medication, and surgical options were discussed with the patient. And all questions were answered to the patient's satisfaction. #2 treatment plan agreement : Patient was thoroughly discussed regarding the treatment options, alternatives, and importance of exercises as tolerated. Patient clearly understood. #3 Patient was counseled on importance of regular exercise. Including bob chi, aerobic exercises as tolerated. Which helps for chronic pain, and overall well- being. Patient also counseled regarding importance of weight control rolling chronic pain, and overall other health issues. By altering diet habits, minimizing sugar intake, and processed foods helps in minimizing Inflammation. . #4 investigations: MAPS- reviewed , urine drug test- Reviewed #5 diagnostic tests: None at this time #6 consultation :None # 7 interventional procedures: None at this time. #8 medications #1Norco 5/325 by mouth daily as needed dispense 30 with 1 refill Medication side effects, complications, long-term consequences discussed with the patient. Patient recommended to contact the pain clinic if noticed any issues with given medications. #9 morphine milligrams equivalents dose ( MME) per day:5 # 10 TENS unit's, and percussion massage device #11 disposition: follow up with pain clinic as needed in future Time with Patient: Less than 30 PQRS Measure Charge Sheet Measure #130: Documentation of Current Meds in Medical Chart: Patient's medications documented in chart Measure #226: Tobacco Use: Screen & Cessation Intervention: Pt not a tobacco user Measure #111: Pneumonia Vaccination: Pneumococcal vaccine administered or previously received Measure #47: Advance Care Plan: Advance care planning discussed & documented, plan or surrogate given Measure #412: Opioid Treatment Agreement: Documented signed opioid trtmnt agreemnt min once during opioid trtmnt Measure #408: Opioid Therapy Follow-up Evaluation: Patient had f/u eval minimum every 3 months during opioid therapy Measure #317: Preventitive Care & Scrn High Bld Press & F/U: Pre-hypertensive or hypertensive BP documented, pt will f/u with PCP Measure #128: Body Mass Index (BMI) Screening & Follow-up: BMI documented within normal parameters Measure #131: Pain Assessment & Follow-up: Pain positive & plan documented Measure #431: Unhealthy Alcohol Use Preventative Care & Scrn: Patient not identified as an unhealthy alcohol user Mode of Arrival: Ambulatory PQRS Narrative: Smoking Status Never smoker Narcotic Agreement Date Signed 12/22/23 Blood Pressure 122/80 Pain Intensity [Bilateral 0 Lower Neck] Scale Used Numeric (1 - 10) Hx Alcohol Use (MH) Yes: 1 DRINK EVERY 2 WEEKS Home Medications: Ambulatory Orders ALPRAZolam 0.25 mg PO DAILY PRN 12/21/14 Pravastatin Sodium [Pravachol] 40 mg PO HS 01/03/15 Gabapentin [Neurontin] 100 mg PO BID 09/30/18 DULoxetine HCL [Cymbalta] 20 mg PO DAILY 04/15/22 Multivitamin [Multivitamins Adult Gummies] 1 each PO DAILY 04/15/22 Oxybutynin Xl [Ditropan XL] 5 mg PO DAILY 04/15/22 Calcium Carbonate/Vitamin D3 [Calcium 600 mg-D3 10 Mcg (400 Iu)] 1 each PO DAILY 01/07/23 Acetaminophen Tab [Tylenol] 650 mg PO Q4-6H PRN 03/05/23 Cyclobenzaprine [Flexeril] 5 mg PO HS PRN 30 Days #30 tab 12/22/23 HYDROcodone/APAP 5-325MG [[place] 5-325] 1 tab PO DAILY PRN 30 Days #30 tab 12/22/23 HYDROcodone/APAP 5-325MG [[place] 5-325] 1 tab PO DAILY PRN 30 Days #30 tab 12/22/23 HYDROcodone/APAP 5-325MG [[place] 5-325] 1 tab PO DAILY PRN 30 Days #30 tab 01/07/24 Controlled Substance Measures - Controlled Substance Measures Is patient prescribed a controlled substance at discharge?: Yes When asked, does pt state using other controlled substances?: No If prescribed controlled substance>3 days was MAPS reviewed?: Yes If Rx opioid, was Start Talking consent form obtained?: Yes If opioid is for acute pain is fill amount 7 days or less?: No Was information provided regarding opioid addiction?: Yes
== END ==
LOC: PNWHC3 10:32
PROVIDERS: ATTEND Anesthesiology
DX: M47.22 Other spondylosis with radiculopathy, cervical region (principal); G89.29 Other chronic pain; M79.18 Myalgia, other site; Z91.030 Bee allergy status
CPT/HCPCS: 99211

== ENCOUNTER → 2024-04-12 | Outpatient (CLI) | payer MEDICARE ==
[2024-04-12 13:29] VITALS: BP 112/72; PULSE 81; RESP 16
--- NOTE | 2024-04-12 14:42 | P.PAINPG ---
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 Pain level is provoked at 2 /10 in intensity, constant, localized in the cervical spine, predominantly axial, achy in character w occasional shooting towards the BL shoulders. Pain is provoked by lifting. Pain is alleviated with heat, medications, topical, repositioning and rest. Cervical disability score 13. Interventional pain procedures completed include BL RFA C4-C6, RAMÓN C6-7 Patient is currently on Tyl, [place] 5/325mg #30, Neurontin Patient denies any side effects of the medication(s), denies excessive drowsiness or sleepiness, denies suicidal ideation and reports that the current pain medication is helping to control the pain and improve activities of daily living. Patient denies any motor or sensory deficits. Patient denies any fever or night sweats, denies any change in the bowel movements or urination. Physical Examination: -Constitutional: Cooperative. Not in acute distress . - Neurologic: Cranial nerve II to XII intact. No focal neurological deficits. - Psychatric: Alert & oriented x 3. Matching mood & appropriate affect. Judgment and insight intact. - Musculoskeletal: Cervical spine: Muscle bulk/ tone/ strength in the bilateral upper extremities normal Vertebral body tenderness to palpation over Spurling test positive Distraction test positive Facet loading test positive TTP Thoracic spine Muscle bulk / tone/ strength in the bilateral paraspinal muscles normal Vertebral body tender to palpation over Facet loading test positive TTP Lumbar spine: Motor bulk/ tone/ strength lower extremities , thigh and legs : 5/5 Deep tendon reflexes : Normal Knee Jerk. Normal Ankle Jerk . Vertebral body tenderness to palpation over Lumbar Facet Loading Test positive Straight Leg Raise: positive at 30 degrees right side/ left side Gaenslen's Test positive Sacral spine : Severe tenderness over the Sacroiliac joint: right side / left side Range of motion: Flexion of the lumbar spine <60 degrees Range of motion: Extension of the lumbar spine <20 degrees Gaenslen's Test positive R / L Bashir test: positive right side / left side Thigh Thrust Test positive R / L Sacral Thrust Test positive R/ L Assessment and plan: Chronic neck pain secondary to cervical DDD, spondylosis with facet arthropathy without myelopathy Will manage residual pain and may RTC on an as needed basis. All questions answered. I have spent less than 30 minutes on patient care today. Dr Inman was available by phone for the evaluation of this patient. The time was used to review the medical records including relevant urine studies and Prescription history (MAPs), review of the available imaging, evaluation and examination of the patient, coordination of care with the medical staff and if applicable referring physicians, as well as creation of the medical record PQRS Narrative: Smoking Status Never smoker Narcotic Agreement Date Signed 12/22/23 Hx Alcohol Use (MH) Yes: 1 DRINK EVERY 2 WEEKS Home Medications: Ambulatory Orders ALPRAZolam 0.25 mg PO DAILY PRN 12/21/14 Pravastatin Sodium [Pravachol] 40 mg PO HS 01/03/15 Gabapentin [Neurontin] 100 mg PO BID 09/30/18 DULoxetine HCL [Cymbalta] 20 mg PO DAILY 04/15/22 Multivitamin [Multivitamins Adult Gummies] 1 each PO DAILY 04/15/22 Oxybutynin Xl [Ditropan XL] 5 mg PO DAILY 04/15/22 Calcium Carbonate/Vitamin D3 [Calcium 600 mg-D3 10 Mcg (400 Iu)] 1 each PO DAILY 01/07/23 Acetaminophen Tab [Tylenol] 650 mg PO Q4-6H PRN 03/05/23 Cyclobenzaprine [Flexeril] 5 mg PO HS PRN 30 Days #30 tab 12/22/23 HYDROcodone/APAP 5-325MG [[place] 5-325] 1 tab PO DAILY PRN 30 Days #30 tab 12/22/23 HYDROcodone/APAP 5-325MG [[place] 5-325] 1 tab PO DAILY PRN 30 Days #30 tab 12/22/23 HYDROcodone/APAP 5-325MG [[place] 5-325] 1 tab PO DAILY PRN 30 Days #30 tab 01/07/24 Controlled Substance Measures - Controlled Substance Measures Is patient prescribed a controlled substance at discharge?: No
== END ==
LOC: PNWHC3 10:44
PROVIDERS: ATTEND Specialist
DX: M50.30 Other cervical disc degeneration, unspecified cervical region (principal); M47.812 Spondylosis without myelopathy or radiculopathy, cervical region; Z91.030 Bee allergy status
CPT/HCPCS: 99211

== ENCOUNTER → 2024-08-23 | Outpatient (CLI) | payer MEDICARE ==
[2024-08-23 10:19] VITALS: BP 140/82; PULSE 73; RESP 18; TEMP 99.1
--- NOTE | 2024-08-23 14:50 | P.PAINPG ---
PQRS Measure Charge Sheet Comment: A 84 yr old female with a history of severe and chronic neck pain secondary to radiculopathy, spondylosis with facet arthropathy without myelopathy presents today for evaluation. Pt underwent a BL RFA C4-C5/ C5-C6 in Apr 2023 where she experienced 90% pain relief x 1 yr s/p procedure. Pain level is provoked at 6 /10 in intensity, constant, localized in the cervical spine, predominantly axial, achy in character without shooting pain. Pain is provoked by lifting, rotation. Pain is alleviated with physician guided stretches daily since Apr 2023, heat, medications, topical, repositioning and rest. Interventional pain procedures completed include BL RFA C4-C6, RAMÓN C6-7 Patient is currently on Tyl, [place]al 5/325mg #30, Neurontin Patient denies any side effects of the medication(s), denies excessive drowsiness or sleepiness, denies suicidal ideation and reports that the current pain medication is helping to control the pain and improve activities of daily living. Patient denies any motor or sensory deficits. Patient denies any fever or night sweats, denies any change in the bowel movements or urination. Physical Examination: -Constitutional: Cooperative. Not in acute distress . - Neurologic: Cranial nerve II to XII intact. No focal neurological deficits. - Psychatric: Alert & oriented x 3. Matching mood & appropriate affect. Judgment and insight intact. - Musculoskeletal: Cervical spine: Muscle bulk/ tone/ strength in the bilateral upper extremities normal Vertebral body tenderness to palpation over Spurling test positive Distraction test positive Facet loading test positive BL C4-C5, C5-C6 Thoracic spine Muscle bulk / tone/ strength in the bilateral paraspinal muscles normal Vertebral body tender to palpation over Facet loading test positive TTP Lumbar spine: Motor bulk/ tone/ strength lower extremities , thigh and legs : 5/5 Deep tendon reflexes : Normal Knee Jerk. Normal Ankle Jerk . Vertebral body tenderness to palpation over Lumbar Facet Loading Test positive Straight Leg Raise: positive at 30 degrees right side/ left side Gaenslen's Test positive Sacral spine : Severe tenderness over the Sacroiliac joint: right side / left side Range of motion: Flexion of the lumbar spine <60 degrees Range of motion: Extension of the lumbar spine <20 degrees Gaenslen's Test positive R / L Bashir test: positive right side / left side Thigh Thrust Test positive R / L Sacral Thrust Test positive R/ L Assessment and plan: Chronic neck pain secondary to radiculopathy, spondylosis with facet arthropathy without myelopathy Recommendation of BL RFA C4-C5/ C5-C6. Exhibited substantial pain relief w prior BL RFA procedure. Risks, benefits of procedure discussed and pt verbalized understanding. Protocol for discontinuation/ continuation of medications lennox procedure discussed Minimal anesthesia including Fentanyl and Versed if clinically indicated. All questions answered. I have spent less than 30 minutes on patient care today. Dr Inman was available by phone for the evaluation of this patient. The time was used to review the medical records including relevant urine studies and Prescription history (MAPs), review of the available imaging, evaluation and examination of the patient, coordination of care with the medical staff and if applicable referring physicians, as well as creation of the medical record PQRS Narrative: Smoking Status Never smoker Narcotic Agreement Date Signed 12/22/23 Hx Alcohol Use (MH) Yes: 1 DRINK EVERY 2 WEEKS Home Medications: Ambulatory Orders ALPRAZolam 0.25 mg PO DAILY PRN 12/21/14 Pravastatin Sodium [Pravachol] 40 mg PO HS 01/03/15 Gabapentin [Neurontin] 100 mg PO BID 09/30/18 DULoxetine HCL [Cymbalta] 20 mg PO DAILY 04/15/22 Multivitamin [Multivitamins Adult Gummies] 1 each PO DAILY 04/15/22 Oxybutynin Xl [Ditropan XL] 5 mg PO DAILY 04/15/22 Calcium Carbonate/Vitamin D3 [Calcium 600 mg-D3 10 Mcg (400 Iu)] 1 each PO DAILY 01/07/23 Acetaminophen Tab [Tylenol] 650 mg PO Q4-6H PRN 03/05/23 Cyclobenzaprine [Flexeril] 5 mg PO HS PRN 30 Days #30 tab 12/22/23 HYDROcodone/APAP 5-325MG [[place] 5-325] 1 tab PO DAILY PRN 30 Days #30 tab 12/22/23 HYDROcodone/APAP 5-325MG [[place] 5-325] 1 tab PO DAILY PRN 30 Days #30 tab 12/22/23 HYDROcodone/APAP 5-325MG [[place]al 5-325] 1 tab PO DAILY PRN 30 Days #30 tab 01/07/24 Controlled Substance Measures - Controlled Substance Measures Is patient prescribed a controlled substance at discharge?: No
== END ==
LOC: PNWHC3 10:03
PROVIDERS: ATTEND Specialist
DX: M47.812 Spondylosis without myelopathy or radiculopathy, cervical region
CPT/HCPCS: 99211

== ENCOUNTER → 2024-09-09 | Day surgery (SDC) | payer MEDICARE ==
[2024-09-08 10:29] VITALS: BMI 24.7
[~2024-09-09] MED LIST changes: +MIDAZOLAM 2 MG/2 ML VIAL ONE; +ROPIVACAINE 5MG/ML 20ML VIAL ONE; -SODIUM CHLORIDE 0.9% 500 ML 500 ML in EMPTY BAG 1 BAG IV PRN; -ZOLEDRONIC ACID 5 MG in SODIUM CHLORIDE 0.9% 100 ML IV NR; +fentaNYL (PF) 50 MCG/ML 2 ML AMP ONE; +methylPREDNISolone ACETATE 40 MG/ML 1 ML VIAL ONE
[2024-09-09] MEDS: IV FLUID CONTINUATION 1,000 ML IV ONE ×2 (10:07→11:53)
[2024-09-09 10:12] VITALS: TEMP 97.5
[2024-09-09] MEDS: LACTATED RINGERS 1,000 ML IV SCH (10:17)
--- NOTE | 2024-09-09 11:50 | P.PCN ---
Date of Procedure: 09/09/24 Procedure(s) Performed: PREOPERATIVE DIAGNOSIS: Cervical spondylosis with Facet Arthropathy without myelopathy. POSTOPERATIVE DIAGNOSIS: Cervical spondylosis with Facet Arthropathy without myelopathy. PROCEDURES: Radiofrequency thermocoagulation Right C4, C5, C6 medial branch with Fluroscopy [place](fluoroscopy was available in Radiology department ) (to denervate the facet joint at Right C4- 5 , C5- 6 ) ANESTHESIA: Moderate sedation with Versed 1 mg and fentanyl 100 mcg , (sedation start time 11:27,end time 11:44 ). EBL: Minimal PROCEDURE INDICATION: The patient with neck pain secondary to cervical arthropathy who had more than 50% relief of her pain with previous diagnostic cervical medial branch block. PROCEDURE DESCRIPTION / TECHNIQUE: The patient was seen and identified in the preoperative area. Risks, benefits, complications, and alternatives were discussed with the patient, the patient agreed to proceed with the procedure and signed the consent. IV was started. Vital signs remained stable throughout the procedure. Patient was taken to the OR and time out was completed. The patient was placed in the Lateral position on the procedure table. The cervical area was prepped and draped in the usual sterile fashion. Critical pause was taken. Vital signs were closely monitored during the procedure. Conscious sedation was used during the procedure to decrease patients anxiety. Using cross-table lateral fluoroscopy, the centroid of the trapezoid of right C4, C5, and C6 were identified, marked, and localized with 1% lidocaine. Subsequently, a 20 -zg radiofrequency cannula with a 10-mm active tip was advanced guided by fluoroscopy to the centroid of the trapezoid of right C4, C5, and C6 . Needle tip position was confirmed at the centroid of the trapezoids of right C4, C5, and C6 with anteroposterior fluoroscopy. Each site then underwent sensory testing at 50 Hz and 0 to 1 volt and motor testing at 2 Hz and 0 to 3 volt with local stimulation, but no radicular symptoms down the arm. Thereafter each sites underwent radiofrequency thermocoagulation at 80 degrees celsius for 90 seconds after injecting 0.5 ml of PF Ropivacaine 0.5 %. After thermocoagulation, 1 ml of the block solution containing Depo-Medrol 20 m g and 3mL of preservative-free normal saline was injected at the right C4, C5, and C6 levels after negative aspiration of CSF and blood and with no paresthesias. Cannulas were retracted . At the end of the procedure Skin was cleansed and bandages were applied. COMPLICATIONS: No acute complications. DISPOSITION / PLANS: The patient was placed in a supine position and transferred to the recovery area in a stable condition for observation and was discharged from the recovery room after meeting discharge criteria. Home discharge instructions given to the patient by the staff. The patient was re examined prior to discharge. The patient will schedule a follow up in the clinic in 2-4 weeks. note= 1 the patient was placed in prone position I was not able to visualize C5 or C6 vertebral, for this reason the procedure was done in lateral position.
[2024-09-09 12:12] VITALS: BP 133/82; PULSE 60; RESP 14
--- NOTE | 2024-09-09 12:19 | FL ---
EXAMINATION TYPE: FL guided pain mgmt statistic DATE OF EXAM: 09/09/2024 FLUOROSCOPY Angel Cerv Rad Freq 1.09 fluoro time [id number] Roldan 4 images submitted [facility], , 09/09/2024 12:17 PM
== END ==
LOC: ORPAIN 09:41
PROVIDERS: ATTEND Specialist
DX: M47.812 Spondylosis without myelopathy or radiculopathy, cervical region (principal)
CPT/HCPCS: 64633; 64634; 99152; J2250; J3010; J2795; J1010

== ENCOUNTER 2024-09-28 09:27 | Day surgery (SDC) | payer MEDICARE ==
[2024-09-28] MEDS: IV FLUID CONTINUATION 1,000 ML IV ONE ×2 (09:38→10:36)
[2024-09-28 09:45] VITALS: TEMP 97.8
[2024-09-28] MEDS: LACTATED RINGERS 1,000 ML IV SCH (09:54)
[2024-09-28] MEDS ORDERED: MIDAZOLAM 2 MG/2 ML VIAL ONE (10:08)
[2024-09-28] MEDS ORDERED: ROPIVACAINE 5MG/ML 20ML VIAL ONE (10:08)
[2024-09-28] MEDS ORDERED: fentaNYL (PF) 50 MCG/ML 2 ML AMP ONE (10:08)
[2024-09-28] MEDS ORDERED: methylPREDNISolone ACETATE 40 MG/ML 1 ML VIAL ONE (10:08)
--- NOTE | 2024-09-28 10:32 | P.PCN ---
Date of Procedure: 09/28/24 Procedure(s) Performed: PREOPERATIVE DIAGNOSIS: Cervical spondylosis with Facet Arthropathy without myelopathy. POSTOPERATIVE DIAGNOSIS: Cervical spondylosis with Facet Arthropathy without myelopathy. PROCEDURES: Radiofrequency thermocoagulation Left C4, C5, C6 medial branch with Fluroscopy [place](fluoroscopy was available in Radiology department ) (to denervate the facet joint at Left C4- 5 , C5- 6 ) ANESTHESIA: Moderate sedation with Versed 1 mg and fentanyl 100 mcg , (sedation start time 10:08,end time 10:28 ). EBL: Minimal PROCEDURE INDICATION: The patient with neck pain secondary to cervical arthropathy who had more than 50% relief of her pain with previous diagnostic cervical medial branch block. PROCEDURE DESCRIPTION / TECHNIQUE: The patient was seen and identified in the preoperative area. Risks, benefits, complications, and alternatives were discussed with the patient, the patient agreed to proceed with the procedure and signed the consent. IV was started. Vital signs remained stable throughout the procedure. Patient was taken to the OR and time out was completed. The patient was placed in the Lateral position on the procedure table. The cervical area was prepped and draped in the usual sterile fashion. Critical pause was taken. Vital signs were closely monitored during the procedure. Conscious sedation was used during the procedure to decrease patients anxiety. Using cross-table lateral fluoroscopy, the centroid of the trapezoid of Left C4, C5, and C6 were identified, marked, and localized with 1% lidocaine. Subsequently, a 20 [id number] radiofrequency cannula with a 10-mm active tip was advanced guided by fluoroscopy to the centroid of the trapezoid of Left C4, C5, and C6 . Needle tip position was confirmed at the centroid of the trapezoids of Left C4, C5, and C6 with anteroposterior fluoroscopy. Each site then underwent sensory testing at 50 Hz and 0 to 1 volt and motor testing at 2 Hz and 0 to 3 volt with local stimulation, but no radicular symptoms down the arm. Thereafter each sites underwent radiofrequency thermocoagulation at 80 degrees celsius for 90 seconds after injecting 0.5 ml of PF Ropivacaine 0.5 %. After thermocoagulation, 1 ml of the block solution containing Depo-Medrol 20 mg and 3mL of preservative-free normal saline was injected at the Left C4, C5, and C6 levels after negative aspiration of CSF and blood and with no paresthesias. Cannulas were retracted . At the end of the procedure Skin was cleansed and bandages were applied. COMPLICATIONS: No acute complications. DISPOSITION / PLANS: The patient was placed in a supine position and transferred to the recovery area in a stable condition for observation and was discharged from the recovery room after meeting discharge criteria. Home discharge instructions given to the patient by the staff. The patient was reexamined prior to discharge. The patient will schedule a follow up in the clinic in 2-4 weeks. note= 1 the patient was placed in prone position I was not able to visualize C5 or C6 vertebral, for this reason the procedure was done in lateral position.
[2024-09-28 10:54] VITALS: BP 135/78; PULSE 59; RESP 17
--- NOTE | 2024-09-28 11:42 | FL ---
EXAMINATION TYPE: FL guided pain mgmt statistic DATE OF EXAM: 09/28/2024 10:38 AM COMPARISON: Pre Operative Images if available both CT/MRI or plain film CLINICAL INDICATION: Female, 84 years old with history of PAIN; TECHNIQUE: FL guided pain mgmt statistic, multiple fluoroscopic images provided for procedure. Total fluoroscopy time: 62.4 seconds Total submitted images to PACS: 3 DAP: [id number] mGym2 Gycm2 uGym2 cGycm2 or equivalent. FINDINGS: Fluoroscopic images during injection for pain management demonstrate multilevel degeneration changes throughout the spine. No evidence for fracture. No acute process identified. IMPRESSION: 1. No evidence for intraoperative complication. 2. Please see the operative/procedural note for further details. [facility], , 09/28/2024 11:40 AM
== END 2024-09-28 11:19 | disposition home or self-care (01) ==
LOC: ORPAIN 09:27
PROVIDERS: ATTEND Specialist
DX: M47.812 Spondylosis without myelopathy or radiculopathy, cervical region (principal); Z91.030 Bee allergy status
CPT/HCPCS: 64633; 64634; J2250; J3010; J2795; J1010; 99152

== ENCOUNTER → 2024-11-17 | Outpatient (CLI) | payer MEDICARE ==
[2024-11-17 11:18] VITALS: BP 133/86; PULSE 87; RESP 16; TEMP 97.8
--- NOTE | 2024-11-17 15:20 | P.PAINPG ---
Objective - Vital Signs Vital signs: Intake & Output 11/16/24 11/17/24 11/17/24 18:59 06:59 18:59 Weight 57.606 kg PQRS Measure Charge Sheet Comment: A 84 yr old female w at side with a history of severe and chronic neck pain secondary to radiculopathy, spondylosis with facet arthropathy without myelopathy presents today for evaluation s/p BL RFA C4-C5/ C5-C6. Pt states she experienced 60% pain relief s/p procedure. Pain level is provoked at 3 /10 in intensity, constant, localized in the cervical spine, predominantly axial, achy in character without shooting pain. Pain is provoked by lifting, rotation. Pain is alleviated with physician guided stretches daily since Apr 2023, heat, medications, topical, repositioning and rest. Interventional pain procedures completed include BL RFA C4-C6 x2 (), RAMÓN C6-C7 Patient is currently on Tyl, [place] 5/325mg #30, Neurontin Patient denies any side effects of the medication(s), denies excessive drowsiness or sleepiness, denies suicidal ideation and reports that the current pain medication is helping to control the pain and improve activities of daily living. Patient denies any motor or sensory deficits. Patient denies any fever or night sweats, denies any change in the bowel movements or urination. Physical Examination: -Constitutional: Cooperative. Not in acute distress . - Neurologic: Cranial nerve II to XII intact. No focal neurological deficits. - Psychatric: Alert & oriented x 3. Matching mood & appropriate affect. Judgment and insight intact. - Musculoskeletal: Cervical spine: Muscle bulk/ tone/ strength in the bilateral upper extremities normal Vertebral body tenderness to palpation over Spurling test positive Distraction test positive Facet loading test positive BL C4-C5, C5-C6 Thoracic spine Muscle bulk / tone/ strength in the bilateral paraspinal muscles normal Vertebral body tender to palpation over Facet loading test positive TTP Lumbar spine: Motor bulk/ tone/ strength lower extremities , thigh and legs : 5/5 Deep tendon reflexes : Normal Knee Jerk. Normal Ankle Jerk . Vertebral body tenderness to palpation over Lumbar Facet Loading Test positive Straight Leg Raise: positive at 30 degrees right side/ left side Gaenslen's Test positive Sacral spine : Severe tenderness over the Sacroiliac joint: right side / left side Range of motion: Flexion of the lumbar spine <60 degrees Range of motion: Extension of the lumbar spine <20 degrees Gaenslen's Test positive R / L Bashir test: positive right side / left side Thigh Thrust Test positive R / L Sacral Thrust Test positive R/ L Assessment and plan: Chronic neck pain secondary to radiculopathy, spondylosis with facet ar thropathy without myelopathy Recommendation of PT integrated w traction x 6 wks M54.12 and Diclofenac gel 1 tube w 1 RF. Use, side effects, adverse reactions, safe storage discussed. All questions answered. I have spent less than 30 minutes on patient care today. Dr Inman was available by phone for the evaluation of this patient. The time was used to review the medical records including relevant urine studies and Prescription history (MAPs), review of the available imaging, evaluation and examination of the patient, coordination of care with the medical staff and if applicable refer ring physicians, as well as creation of the medical record - Pain Location Right Neck Non-Pharmacological Interventions: Position/Reposition Pharmacological Interventions: Discuss Pain Med Options PQRS Narrative: Smoking Status Never smoker Narcotic Agreement Date Signed 08/23/24 Hx Alcohol Use (MH) Yes: 1 DRINK EVERY 2 WEEKS Home Medications: Ambulatory Orders ALPRAZolam 0.25 mg PO DAILY PRN 12/21/14 Pravastatin Sodium [Pravachol] 40 mg PO HS 01/03/15 Gabapentin [Neurontin] 100 mg PO BID 09/30/18 DULoxetine HCL [Cymbalta] 20 mg PO DAILY 04/15/22 Multivitamin [Multivitamins Adult Gummies] 1 each PO DAILY 04/15/22 Oxybutynin Xl [Ditropan XL] 5 mg PO DAILY 04/15/22 Acetaminophen Tab [Tylenol] 650 mg PO Q4-6H PRN 03/05/23 Ibandronate Sodium [Boniva] 150 mg PO QMONTHLY 09/08/24 Meclizine HCl [Antivert] 25 mg PO DAILY 09/08/24 Pantoprazole Sodium [Protonix] 40 mg PO DAILY 09/08/24 Diclofenac Sodium Gel [Voltaren 1% Gel] 50 gm TOPICAL DAILY 30 Days #1 each 11/17/24 Controlled Substance Measures - Controlled Substance Measures Is patient prescribed a controlled substance at discharge?: No
== END ==
LOC: PNWHC3 10:39
PROVIDERS: ATTEND Specialist
DX: M47.22 Other spondylosis with radiculopathy, cervical region (principal); G89.29 Other chronic pain; Z91.030 Bee allergy status
CPT/HCPCS: 99211

== ENCOUNTER → 2024-11-18 | Outpatient (CLI) | payer MEDICARE ==
[2024-11-18 15:07] LABS: Basophils # (A) 0.04 X 10*3/uL (0.00-0.10); Basophils % (A) 0.6 %; Eosinophils # (A) 0.38 X 10*3/uL (0.04-0.35); Eosinophils % (A) 5.8 %; HCT 44.5 % (37.2-46.3); Lymphocytes # (A) 1.75 X 10*3/uL (0.90-5.00); Lymphocytes % (A) 26.6 %; MCH 30.5 pg (27.0-32.0); MCHC 31.5 g/dL (32.0-37.0); MCV 96.9 FL (80.0-97.0); Mean Platelet Volume 11.9 FL (9.5-12.2); Monocytes # (A) 0.59 X 10*3/uL (0.20-1.00); NRBC Per 100 WBC 0 X 10*3/uL (0.00-0.01); Neutrophils # (A) 3.79 X 10*3/uL (1.80-7.70); Neutrophils % (A) 57.7 %; Platelet Count 236 X 10*3/uL (140-440); RBC 4.59 X 10*6/uL (4.10-5.20); RDW 12.6 % (11.5-14.5); WBC 6.57 X 10*3/uL (4.50-10.00)
[2024-11-18 15:36] LABS: ALT 16 U/L (8-44); AST 24 U/L (13-35); Albumin 4.3 g/dL (3.8-4.9); Albumin/Globulin Ratio 1.95 Ratio (1.60-3.17); Alkaline Phosphatase 56 U/L (41-126); BUN/Creat Ratio 13.12 Ratio (12.00-20.00); Blood Urea Nitrogen 10.5 mg/dL (9.0-27.0); Calcium 9.6 mg/dL (8.7-10.3); Carbon Dioxide 28.7 mmol/L (21.6-31.8); Chloride 107 mmol/L (96-109); Chol/HDL Ratio 3.03 Ratio; Globulin 2.2 g/dL (1.6-3.3); Glucose 89 mg/dL (70-110); LDL Cholesterol,Calculated 71.1 mg/dL (0.0-131.0); Sodium 146 mmol/L (135-145); Total Bilirubin 0.6 mg/dL (0.3-1.2); Total Protein 6.5 g/dL (6.2-8.2)
== END | disposition home or self-care (01) ==
LOC: LABWHC1 09:54
PROVIDERS: ATTEND Internal Medicine
DX: E78.5 Hyperlipidemia, unspecified (principal); M85.80 Other specified disorders of bone density and structure, unspecified site
CPT/HCPCS: 36415; 80053; 80061; 82306; 83735; 84443; 85025

== ENCOUNTER → 2025-04-01 | Outpatient (CLI) | payer MEDICARE ==
--- NOTE | 2025-04-01 11:59 | MM ---
Reason for Exam: Screening (asymptomatic). Last screening mammogram was performed 12 month(s) ago. Patient History: Menarche at age 11. First Full-Term at age 20. Postmenopausal. Estrogen for 10 years from age 57 until age 67. Progesterone for 10 years from age 57 until age 67. Excisional Biopsy on the Right side. 08/20/2007, Benign Core Biopsy on the left side. 01/19/1998, Benign Cyst Aspiration on the left side. 08/20/2007, Cancelled Left Mammotome on the left side. Maternal aunt had breast cancer, age 80. Risk Values: Priya 5 year model risk: 1.7%. NCI Lifetime model risk: 1.7%. Prior Study Comparison: 03/20/2022 Bilateral Screening Mammogram, [facility]. 03/26/2023 Bilateral MG 3D screening mammo w/cad, [facility]. 03/31/2024 Bilateral MG 3D screening mammo w/cad, [facility]. Tissue Density: The breasts are heterogeneously dense, which may obscure small masses. Findings: Analyzed By CAD. Right breast: There is no suspicious group of microcalcifications or new suspicious mass. Benign-appearing calcifications right breast. Left breast: There is no suspicious group of microcalcifications or new suspicious mass. Benign-appearing calcifications left breast. Overall Assessment: Benign, BI-RAD 2 Management: Screening Mammogram of both breasts in [address] [facility] will attempt to contact patient to return for supplemental views and ultrasound if indicated. Patient should continue monthly self-breast exams. A clinical breast exam by your physician is recommended on an annual basis. This exam should not preclude additional follow-up of suspicious palpable abnormalities. Note on Priya scores and lifetime risk: 1. A Priya score greater than 3% is considered moderate risk. If this is the case, consider specialist referral to assess eligibility for a risk reducing agent. 2. If overall lifetime risk for the development of breast cancer is 20% or higher, the patient may qualify for future screening with alternating mammogram and breast MRI. [facility], , 04/01/2025 11:56 AM. Electronically signed and approved by: Jayden Hammer DO
== END | disposition home or self-care (01) ==
LOC: RADMAMWWP 10:50
PROVIDERS: ATTEND Internal Medicine
DX: Z12.31 Encounter for screening mammogram for malignant neoplasm of breast (principal); R92.333 Mammographic heterogeneous density, bilateral breasts; R92.1 Mammographic calcification found on diagnostic imaging of breast; Z78.0 Asymptomatic menopausal state; Z80.3 Family history of malignant neoplasm of breast
CPT/HCPCS: 77063; 77067

== ENCOUNTER → 2025-04-14 | Outpatient (CLI) | payer MEDICARE ==
[2025-04-14 13:22] VITALS: BP 136/84; PULSE 88; RESP 16; TEMP 96.9
--- NOTE | 2025-04-18 14:26 | P.PAINPG ---
Objective - Vital Signs Vital signs: Vital Signs Temp 96.9 F L 04/14/25 13:17 Pulse 88 04/14/25 13:17 Resp 16 04/14/25 13:17 BP 136/84 04/14/25 13:17 Pulse Ox 94 L 04/14/25 13:17 FiO2 PQRS Measure Charge Sheet Mode of Arrival: Ambulatory Comment: A 84 yr old female w at side with a history of severe and chronic neck pain secondary to radiculopathy, spondylosis with facet arthropathy without myelopathy presents today for evaluation. Pain level is provoked at 1 /10 in intensity, constant, localized in the cervical spine, predominantly axial, achy in character without shooting pain. Pain is provoked by lifting, rotation. Pain is alleviated with physician guided stretches daily since Apr 2023, heat, medications, topical, repositioning and rest. Interventional pain procedures completed include BL RFA C4-C6 x2 (), RAMÓN C6-C7 Patient is currently on Tyl, [place] 5/325mg #30, Neurontin Patient denies any side effects of the medication(s), denies excessive drowsiness or sleepiness, denies suicidal ideation and reports that the current pain medication is helping to control the pain and improve activities of daily living. Patient denies any motor or sensory deficits. Patient denies any fever or night sweats, denies any change in the bowel movements or urination. Physical Examination: -Constitutional: Cooperative. Not in acute distress . - Neurologic: Cranial nerve II to XII intact. No focal neurological deficits. - Psychatric: Alert & oriented x 3. Matching mood & appropriate affect. Judgment and insight intact. - Musculoskeletal: Cervical spine: Muscle bulk/ tone/ strength in the bilateral upper extremities normal Vertebral body tenderness to palpation over Spurling test positive Distraction test positive Facet loading test positive BL C4-C5, C5-C6 Thoracic spine Muscle bulk / tone/ strength in the bilateral paraspinal muscles normal Vertebral body tender to palpation over Facet loading test positive TTP Lumbar spine: Motor bulk/ tone/ strength lower extremities , thigh and legs : 5/5 Deep tendon reflexes : Normal Knee Jerk. Normal Ankle Jerk . Vertebral body tenderness to palpation over Lumbar Facet Loading Test positive Straight Leg Raise: positive at 30 degrees right side/ left side Gaenslen's Test positive Sacral spine : Severe tenderness over the Sacroiliac joint: right side / left side Range of motion: Flexion of the lumbar spine <60 degrees Range of motion: Extension of the lumbar spine <20 degrees Gaenslen's Test positive R / L Bashir test: positive right side / left side Thigh Thrust Test positive R / L Sacral Thrust Test positive R/ L Assessment and plan: Chronic neck pain secondary to radiculopathy, spondylosis with facet arthropathy without myelopathy Recommendation of medication management Diclofenac gel 1 tube w RF. Use, side effects, adverse reactions, safe storage discussed. Will follow up w Dr Kwan for additional treatment and options. All questions answered. I have spent less than 30 minutes on patient care today. Dr Inman was availa ble by phone for the evaluation of this patient. The time was used to review the medical records including relevant urine studies and Prescription history (MAPs), review of the available imaging, evaluation and examination of the patient, coordination of care with the medical staff and if applicable referring physicians, as well as creation of the medical record PQRS Narrative: Smoking Status Never smoker Narcotic Agreement Date Signed 08/23/24 Blood Pressure 136/84 Pain Intensity [Bilateral 0 Lower Neck] Scale Used Numeric (1 - 10) Hx Alcohol Use (MH) No Home Medications: Ambulatory Orders ALPRAZolam 0.25 mg PO DAILY PRN 12/21/14 Pravastatin Sodium [Pravachol] 40 mg PO HS 01/03/15 Gabapentin [Neurontin] 100 mg PO BID 09/30/18 DULoxetine HCL [Cymbalta] 20 mg PO DAILY 04/15/22 Multivitamin [Multivitamins Adult Gummies] 1 each PO DAILY 04/15/22 Oxybutynin Xl [Ditropan XL] 5 mg PO DAILY 04/15/22 Acetaminophen Tab [Tylenol] 650 mg PO Q4-6H PRN 03/05/23 Ibandronate Sodium [Boniva] 150 mg PO QMONTHLY 09/08/24 Meclizine HCl [Antivert] 25 mg PO DAILY 09/08/24 Pantoprazole Sodium [Protonix] 40 mg PO DAILY 09/08/24 Diclofenac Sodium Gel [Voltaren 1% Gel] 50 gm TOPICAL DAILY 30 Days #1 each 11/17/24 Controlled Substance Measures - Controlled Substance Measures Is patient prescribed a controlled substance at discharge?: No
== END ==
LOC: PNWHC3 13:00
PROVIDERS: ATTEND Specialist
DX: M47.22 Other spondylosis with radiculopathy, cervical region (principal); Z91.030 Bee allergy status
CPT/HCPCS: 99211

== ENCOUNTER 2025-06-03 05:14 | Inpatient (IN) | payer MEDICARE ==
--- NOTE | 2025-06-03 05:52 | ED ---
General Adult HPI - General Chief complaint: Recheck/Abnormal Lab/Rx Stated complaint: Not feeling well Time Seen by Provider: 06/03/25 05:24 Source: patient Mode of arrival: ambulatory Limitations: no limitations - History of Present Illness Initial comments: Dictation was produced using [employer] dictation software. please excuse any grammatical, word or spelling errors. Chief Complaint: 85-year-old female presents with fever nausea and vomiting History of Present Illness: Patient is 85-year-old female was recently seen at the urgent care where she was diagnosed with UTI. She was on unknown antibiotics that she just completed. Patient states she still feels unwell. States that she has no abdominal pain, runny nose or sore throat. Denies any urinary symptoms. No obvious sick contacts. The ROS documented in this emergency department record has been reviewed and confirmed by me. Those systems with pertinent positive or negative responses have been documented in the HPI. All other systems are other negative and/or noncontributory. - Related Data Home Medications Medication Instructions Recorded Confirmed ALPRAZolam 0.25 mg PO DAILY PRN 12/21/14 11/17/24 Pravastatin Sodium [Pravachol] 40 mg PO HS 01/03/15 11/17/24 Gabapentin [Neurontin] 100 mg PO BID 09/30/18 11/17/24 DULoxetine HCL [Cymbalta] 20 mg PO DAILY 04/15/22 11/17/24 Multivitamin [Multivitamins Adult 1 each PO DAILY 04/15/22 11/17/24 Gummies] Oxybutynin Xl [Ditropan XL] 5 mg PO DAILY 04/15/22 11/17/24 Acetaminophen Tab [Tylenol] 650 mg PO Q4-6H PRN 03/05/23 11/17/24 Ibandronate Sodium [Boniva] 150 mg PO QMONTHLY 09/08/24 11/17/24 Meclizine HCl [Antivert] 25 mg PO DAILY 09/08/24 11/17/24 Pantoprazole Sodium [Protonix] 40 mg PO DAILY 09/08/24 11/17/24 Previous Rx's Medication Instructions Recorded Diclofenac Sodium Gel [Voltaren 1% 50 gm TOPICAL DAILY 30 Days #1 each 04/14/25 Gel] Allergies Allergy/AdvReac Type Severity Reaction Status Date / Time bee venom protein (honey bee) Allergy Swelling Verified 06/03/25 05:21 Review of Systems ROS Statement: Those systems with pertinent positive or pertinent negative responses have been documented in the HPI. ROS Other: All systems not noted in ROS Statement are negative. Past Medical History Past Medical History: GERD/Reflux, Hyperlipidemia, Musculoskeletal Disorder, Osteoarthritis (OA) Additional Past Medical History / Comment(s): chronic neck, back, across shoulders pain, urinary incontinence, swelling behind both eyes post cataract sx-on gtts. History of Any Multi-Drug Resistant Organisms: None Reported Past Surgical History: Bladder Surgery, Breast Surgery, Orthopedic Surgery Additional Past Surgical History / Comment(s): BILAT bunionectomy, CYST REMOVED RT BREAST, BIOPSIES ON BILAT BREAST. COLONOSCOPY/EGD, rt hand trigger thumb, pain procedures, Cataract surgery bilateral eyes Past Anesthesia/Blood Transfusion Reactions: No Reported Reaction Past Psychological History: Anxiety Smoking Status: Never smoker Past Alcohol Use History: None Reported Past Drug Use History: None Reported - Past Family History Mother Family Medical History: Cancer General Exam - General Exam Comments Initial Comments: PHYSICAL EXAM: General Impression: Alert and oriented x3, not in acute distress HEENT: Normocephalic atraumatic, extra-ocular movements intact, pupils equal and reactive to light bilaterally, mucous membranes moist. Cardiovascular: Heart regular rate and rhythm Chest: Able to complete full sentences, no retractions, no tachypnea Abdomen: abdomen soft, non-tender, non-distended, no organomegaly Musculoskeletal: Pulses present and equal in all extremities, no peripheral edema Motor: no focal deficits noted Neurological: CN II-XII grossly intact, no focal motor or sensory deficits noted Skin: Intact with no visualized rashes Psych: Normal affect and mood Limitations: no limitations Course Vital Signs 06/03/25 06/03/25 06/03/25 05:18 06:04 06:07 Temperature 100.9 F H Pulse Rate 110 H 90 Respiratory 18 20 Rate Blood Pressure 125/81 134/70 O2 Sat by Pulse 94 L 91 L 98 Oximetry 06/03/25 06/03/25 06/03/25 06:32 06:40 07:14 Temperature 98.9 F Pulse Rate 89 90 87 Respiratory 18 Rate Blood Pressure 113/91 O2 Sat by Pulse 96 Oximetry Medical Decision Making - Medical Decision Making Was pt. sent in by a medical professional or institution (Dr., PA, PRODUCTION ARTIST, urgent care, hospital, or residential...) When possible be specific @ -No Did you speak to anyone other than the patient for history (EMS, parent, family, police, friend...)? What history was obtained from this source @ -No Did you review nursing and triage notes (agree or disagree)? Why? @ -I reviewed and agree with nursing and triage notes Were old charts reviewed (outside hosp., previous admission, EMS record, old EKG, old radiological studies, urgent care reports/EKG's, residential records)? Report findings @ -No old charts were reviewed Differential Diagnosis (chest pain, altered mental status, abdominal pain women, abdominal pain men, vaginal bleeding, musculoskeletal, weakness, fever, dyspnea, syncope, headache, dizziness, GI bleed, back pain, seizure, CVA, palpatations, mental health)? @ -Differential Fever: Pneumonia, viral URI, endocarditis, myocarditis, pericarditis, otitis, sinusitis, peritonsillar Abscess, retropharyngeal Abscess, epiglottitis, peritonitis, appendicitis, Janessa cystitis, diverticulitis, hepatitis, colitis, UTI, PID, TOA, pyelonephritis, prostatitis, epididymitis, meningitis, encephalitis, pulmonary embolism, CVA, thyroid storm, pancreatitis, adrenal crisis, cavernous sinus thrombosis, this is not meant to be an all-inclusive list. EKG interpreted by me (3pts min.). @ -None done X-rays interpreted by me (1pt min.). @ -X-ray shows pneumonia CT interpreted by me (1pt min.). @ -None done U/S interpreted by me (1pt. min.). @ -None done What testing was considered but not performed or refused? (CT, X-rays, U/S, labs)? Why? @ -None What meds were considered but not given or refused? Why? @ -None Was smoking cessation discussed for >3mins.? @ -No Were there social determinants of health that impacted care today? How? (Homelessness, low income, unemployed, alcoholism, drug addiction, transportation, low edu. Level, literacy, decrease access to med. care, halfway, rehab)? @ -No Was there de-escalation of care discussed even if they declined (Discuss DNR or withdrawal of care, Hospice)? DNR status @ -No What co-morbidities impacted this encounter? (DM, HTN, Smoking, COPD, CAD, Cancer, CVA, ARF, Chemo, Hep., AIDS, mental health diagnosis, sleep apnea, morbi d obesity)? @ -None Was patient admitted / discharged? Hospital course, mention meds given and rout e, prescriptions, significant lab abnormalities, going to OR and other pertinent info. @ -85-year-old female admitted for pneumonia. Vital signs upon arrival shows pyrexia. Labs and imaging shows pneumonia. Patient not in septic shock or severe sepsis. Patient started antibiotics Case discussed with hospitalist for admission Did you discuss the management of the patient with other professionals (professionals i.e. , PA, PRODUCTION ARTIST, lab, RT, psych nurse, social services coordinator, criminal defense lawyer, teacher, access control officer, trimming caser)? Give summary @ -See above Was critical care preformed (if so, how long)? @ -No Undiagnosed new problem with uncertain prognosis? @ -No Drug Therapy requiring intensive monitoring for toxicity (Heparin, Nitro, Insulin, Cardizem)? @ -No Were any procedures done? @ -No Diagnosis/symptom? Acute, or Chronic, or Acute on Chronic? Uncomplicated (without systemic symptoms) or Complicated (systemic symptoms)? @ -Pneumonia Side effects of treatment? @ -No Exacerbation, Progression, or Severe Exacerbation? @ -No Poses a threat to life or bodily function? How? (Chest pain, USA, CT, pneumonia, PE, COPD, DKA, ARF, appy, cholecystitis, CVA, Diverticulitis, Homicidal, Suicidal, threat to staff... and all critical care pts) @ -yes - Lab Data Result diagrams: 06/03/25 05:40 06/03/25 05:40 Lab Results 06/03/25 06/03/25 06/03/25 Range/Units 05:30 05:40 05:40 WBC 19.71 H (4.50-10.00) 10*3/uL RBC 4.42 (4.10-5.20) 10*6/uL Hgb 13.6 (12.0-15.0) g/dL Hct 40.3 (37.2-46.3) % MCV 91.2 (80.0-97.0) fL MCH 30.8 (27.0-32.0) pg MCHC 33.7 (32.0-37.0) g/dL Plt Count 219 (140-440) 10*3/uL MPV 11.0 (9.5-12.2) fL Immature Gran % (Auto) 0.3 % Neutrophils % 87.5 % Lymphocytes % 3.1 % Monocytes % 4.4 % Eosinophils % 4.4 % Basophils % 0.3 % Immature Gran # 0.05 H (0.00-0.04) 10*3/uL Neutrophils # 17.27 H (1.80-7.70) 10*3/uL Lymphocytes # 0.61 L (0.90-5.00) 10*3/uL Monocytes # 0.87 (0.20-1.00) 10*3/uL Eosinophils # 0.86 H (0.04-0.35) 10*3/uL Basophils # 0.05 (0.00-0.10) 10*3/uL Sodium 139 (137-145) mmol/L Potassium 3.7 (3.5-5.1) mmol/L Chloride 106 (98-107) mmol/L Carbon Dioxide 23 (22-30) mmol/L Anion Gap 10 mmol/L BUN 12 (7-17) mg/dL Creatinine 0.70 (0.52-1.04) mg/dL Est GFR (CKD-EPI)AfAm >90 (>60 ml/min/1.73 sqM) Est GFR (CKD-EPI)NonAf 79 (>60 ml/min/1.73 sqM) Glucose 124 H (74-99) mg/dL Plasma Lactic Acid Huy (0.7-2.0) mmol/L Calcium 8.9 (8.4-10.2) mg/dL Total Bilirubin 1.1 (0.2-1.3) mg/dL AST 29 (14-36) U/L ALT 13 (4-34) U/L Alkaline Phosphatase 49 (38-126) U/L Total Protein 6.7 (6.3-8.2) g/dL Albumin 4.0 (3.5-5.0) g/dL Influenza Type A (PCR) Not Detected (Not Detectd) Influenza Type B (PCR) Not Detected (Not Detectd) RSV (PCR) Not Detected (Not Detectd) SARS-CoV-2 (PCR) Not Detected (Not Detectd) 06/03/25 Range/Units 05:40 WBC (4.50-10.00) 10*3/uL RBC (4.10-5.20) 10*6/uL Hgb (12.0-15.0) g/dL Hct (37.2-46.3) % MCV (80.0-97.0) fL MCH (27.0-32.0) pg MCHC (32.0-37.0) g/dL Plt Count (140-440) 10*3/uL MPV (9.5-12.2) fL Immature Gran % (Auto) % Neutrophils % % Lymphocytes % % Monocytes % % Eosinophils % % Basophils % % Immature Gran # (0.00-0.04) 10*3/uL Neutrophils # (1.80-7.70) 10*3/uL Lymphocytes # (0.90-5.00) 10*3/uL Monocytes # (0.20-1.00) 10*3/uL Eosinophils # (0.04-0.35) 10*3/uL Basophils # (0.00-0.10) 10*3/uL Sodium (137-145) mmol/L Potassium (3.5-5.1) mmol/L Chloride (98-107) mmol/L Carbon Dioxide (22-30) mmol/L Anion Gap mmol/L BUN (7-17) mg/dL Creatinine (0.52-1.04) mg/dL Est GFR (CKD-EPI)AfAm (>60 ml/min/1.73 sqM) Est GFR (CKD-EPI)NonAf (>60 ml/min/1.73 sqM) Glucose (74-99) mg/dL Plasma Lactic Acid Huy 1.7 (0.7-2.0) mmol/L Calcium (8.4-10.2) mg/dL Total Bilirubin (0.2-1.3) mg/dL AST (14-36) U/L ALT (4-34) U/L Alkaline Phosphatase (38-126) U/L Total Protein (6.3-8.2) g/dL Albumin (3.5-5.0) g/dL Influenza Type A (PCR) (Not Detectd) Influenza Type B (PCR) (Not Detectd) RSV (PCR) (Not Detectd) SARS-CoV-2 (PCR) (Not Detectd) Disposition Clinical Impression: Pneumonia Disposition: ADMITTED IP TO THIS HOSP Condition: Fair Referrals: Domo Kwan DO [Primary Care Provider] - 1-2 days Decision Time: 08:18
[2025-06-03 05:54] LABS: Basophils # (A) 0.05 10*3/uL (0.00-0.10); Basophils % (A) 0.3 %; Eosinophils # (A) 0.86 10*3/uL (0.04-0.35); Eosinophils % (A) 4.4 %; HCT 40.3 % (37.2-46.3); HGB 13.6 g/dL (12.0-15.0); Lymphocytes # (A) 0.61 10*3/uL (0.90-5.00); Lymphocytes % (A) 3.1 %; MCH 30.8 pg (27.0-32.0); MCHC 33.7 g/dL (32.0-37.0); MCV 91.2 fL (80.0-97.0); Monocytes # (A) 0.87 10*3/uL (0.20-1.00); Monocytes % (A) 4.4 %; Neutrophils # (A) 17.27 10*3/uL (1.80-7.70); Neutrophils % (A) 87.5 %; Platelet Count 219 10*3/uL (140-440); RBC 4.42 10*6/uL (4.10-5.20); RDW 12.1 % (11.5-14.5); WBC 19.71 10*3/uL (4.50-10.00)
[2025-06-03] MEDS: LACTATED RINGERS 1,000 ML IV SCH (05:59)
[2025-06-03] MEDS: ACETAMINOPHEN TAB 325 MG TAB PO STA (06:00)
[2025-06-03 06:11] LABS: ALT 13 U/L (4-34); African American GFR (CKD) >90 (>60 ml/min/1.73 sqM); Albumin 4.0 g/dL (3.5-5.0); Anion Gap 10 mmol/L; Blood Urea Nitrogen 12 mg/dL (7-17); Calcium 8.9 mg/dL (8.4-10.2); Carbon Dioxide 23 mmol/L (22-30); Chloride 106 mmol/L (98-107); Glucose 124 mg/dL (74-99); Non-African American GFR(CKD) 79 (>60 ml/min/1.73 sqM); Sodium 139 mmol/L (137-145); Total Protein 6.7 g/dL (6.3-8.2)
[2025-06-03 06:22] LABS: AST 29 U/L (14-36); Alkaline Phosphatase 49 U/L (38-126); Potassium 3.7 mmol/L (3.5-5.1)
[2025-06-03] MEDS: IPRATROPIUM-ALBUTEROL 3 ML NEB INHALATION STA (06:31)
[2025-06-03 06:38] LABS: RSV Not Detected (Not Detectd)
--- NOTE | 2025-06-03 07:38 | XR ---
EXAMINATION TYPE: XR chest 2V DATE OF EXAM: 06/03/2025 6:28 AM COMPARISON: 02/04/2023 CLINICAL INDICATION: Female, 85 years old with history of Fever, , TECHNIQUE: PA and lateral views FINDINGS: Heart mildly enlarged. Diffuse interstitial prominence. Hyperinflation. No consolidation or pleural e ffusion. Some focal retrocardiac density suspected to represent a moderate to large hiatal hernia. IMPRESSION: 1. COPD and mild cardiomegaly. Bilateral interstitial prominence could reflect mild pulmonary vascula r congestion, bronchitis, or atypical pneumonias. Clinically correlate. 2. Suspect an underlying moderate to large hiatal hernia. Correlate for any established diagnosis or associated symptoms. [facility], , 06/03/2025 7:36 AM
[2025-06-03] MEDS ORDERED: PNEUMONIA PROTOCOL UTILIZED 1 EACH MISC PO PRN (08:15)
[2025-06-03] MEDS: cefTRIAXone IN SWFI 1,000 MG/10 ML SYRINGE IVP STA (08:19)
[2025-06-03] MEDS: AZITHROMYCIN 500 MG in SODIUM CHLORIDE 0.9% 250 ML IVPB STA (08:20)
[2025-06-03 08:55] LABS: Bilirubin,Urine Negative (Negative); Blood,Urine Negative (Negative); Color,Urine Yellow; Glucose,Urine (UA) Negative (Negative); Ketones,Urine Negative (Negative); Leukocyte Esterase,Urine Small (Negative); Mucus,Urine Few /hpf; Nitrite,Urine Negative (Negative); PH, Urine 5.5 (5.0-8.0); Protein,Urine Negative (Negative); RBC,Urine 1 /hpf (0-5); Specific Gravity,Urine 1.013 (1.001-1.035); Squamous Epithelial Cell,Urine <1 /hpf (0-4); Urobilinogen,Urine <2.0 mg/dL (<2.0); WBC,Urine 5 /hpf (0-5)
[2025-06-03 09:02] LABS: INR 1.0 (<1.2); Partial Thromboplastin Time 22.2 sec (22.0-30.0); Prothrombin Time 10.8 sec (10.0-12.5)
[2025-06-03] MEDS ORDERED: ALPRAZolam 0.25 MG TAB PO PRN (09:15)
[2025-06-03] MEDS ORDERED: IPRATROPIUM-ALBUTEROL 3 ML NEB INHALATION PRN (09:19)
[2025-06-03] MEDS ORDERED: HYDROcodone/APAP 5-325MG 1 EACH TAB PO PRN (09:19)
[2025-06-03] MEDS ORDERED: ACETAMINOPHEN TAB 325 MG TAB PO PRN (09:19)
[2025-06-03] MEDS: GABAPENTIN 100 MG CAP PO SCH (09:55)
[2025-06-03] MEDS: MECLIZINE 25 MG TAB PO SCH (09:56)
[2025-06-03] MEDS: PANTOPRAZOLE 40 MG TABLET PO SCH (09:56)
[2025-06-03] MEDS: MULTIVITAMINS, THERA 1 EACH TAB PO SCH (09:56)
[2025-06-03] MEDS: OXYBUTYNIN XL 5 MG TAB.ER.24 PO SCH (09:56)
--- NOTE | 2025-06-03 13:58 | P.CNPUL ---
History of Present Illness Consult date: 06/03/25 Requesting physician: Kamran Shukla Reason for consult: dyspnea, cough Chief complaint: Shortness of breath, cough, congestion History of present illness: This is a pleasant 85-year-old female patient with a known history of hyperlipidemia, osteoarthritis, chronic neck and back pain, urinary incontinence and was recently treated for urinary tract infection and antibiotics for 1 week. Lifelong non-smoker. She presented here to the emergency room early this morning with a 2-day history of increasing shortness of breath, cough and congestion she also had some dry heaves. She did present with a fever of 100.9. Chest x-ray revealed mild cardiomegaly and some mild pulmonary vascular con gestion. There was a noted moderate to large hiatal hernia. White count 19.7. Hemoglobin 13.6. Platelets 219. Sodium 139. Potassium 3.7. Bicarb 23. BUN 12. Creatinine 0.70. Glucose 124. She is seen today in consultation in the emergency department. She is currently sitting up in a stretcher. Awake and alert in no acute distress. She is maintaining O2 saturations in the 90s on room air oxygen. Currently afebrile. Hemodynamically stable. She has a dry nonproductive cough. Review of Systems REVIEW OF SYSTEMS: CONSTITUTIONAL: Denies any recent significant weight loss or weight gain. EYES: Denies change in vision. EARS, NOSE, MOUTH, THROAT: Denies headaches, denies sore throat. CARDIOVASCULAR: Denies chest pain, palpitations or syncopal episodes. RESPIRATORY: Positive for shortness of breath, cough, congestion no hemoptysis. GASTROINTESTINAL: Denies change in appetite, denies abdominal pain GENITOURINARY: Denies hematuria, denies infections. MUSKULOSKELETAL: Denies pain, denies swelling. INTEGUMENTARY: Denies rash, denies eczema. NEUROLOGICAL: Denies recent memory loss, no recent seizure activity. PSYCHIATRIC: Denies anxiety, denies depression. HEMATOLOGIC/LYMPHATIC: Denies anemia, denies enlarged lymph nodes. Past Medical History Past Medical History: GERD/Reflux, Hyperlipidemia, Musculoskeletal Disorder, Osteoarthritis (OA) Additional Past Medical History / Comment(s): chronic neck, back, across shoulders pain, urinary incontinence, swelling behind both eyes post cataract sx-on gtts. History of Any Multi-Drug Resistant Organisms: None Reported Past Surgical History: Bladder Surgery, Breast Surgery, Orthopedic Surgery Additional Past Surgical History / Comment(s): BILAT bunionectomy, CYST REMOVED RT BREAST, BIOPSIES ON BILAT BREAST. COLONOSCOPY/EGD, rt hand trigger thumb, pain procedures, Cataract surgery bilateral eyes Past Anesthesia/Blood Transfusion Reactions: No Reported Reaction Past Psychological History: Anxiety Smoking Status: Never smoker Past Alcohol Use History: None Reported Past Drug Use History: None Reported - Past Family History Mother Family Medical History: Cancer Medications and Allergies Home Medications Medication Instructions Recorded Confirmed Type Pravastatin Sodium [Pravachol] 40 mg PO HS 01/03/15 06/03/25 History Gabapentin [Neurontin] 100 mg PO BID 09/30/18 06/03/25 History DULoxetine HCL [Cymbalta] 20 mg PO DAILY 04/15/22 06/03/25 History Ibandronate Sodium [Boniva] 150 mg PO Q30D 09/08/24 06/03/25 History Pantoprazole Sodium [Protonix] 40 mg PO DAILY 09/08/24 06/03/25 History ALPRAZolam [Xanax] 0.25 mg PO DAILY PRN 06/03/25 06/03/25 History HYDROcodone/APAP 5-325MG [[place] 1 tab PO BID PRN 06/03/25 06/03/25 History 5-325] Meclizine [Antivert] 12.5 mg PO TID PRN 06/03/25 06/03/25 History Multivitamins, Thera [Multivitamin 1 tab PO DAILY 06/03/25 06/03/25 History (formulary)] oxyBUTYnin chloride [Ditropan] 5 mg PO HS 06/03/25 06/03/25 History Allergies Allergy/AdvReac Type Severity Reaction Status Date / Time bee venom protein (honey bee) Allergy Swelling Verified 06/03/25 10:20 face Physical Exam Vitals: Vital Signs Temp Pulse Resp BP Pulse Ox 06/03/25 12:22 86 18 118/58 94 L 06/03/25 09:53 98.5 F 83 16 104/63 92 L 06/03/25 09:09 85 16 108/72 92 L 06/03/25 08:17 98.5 F 86 16 130/66 92 L 06/03/25 07:14 98.9 F 87 18 113/91 96 06/03/25 06:40 90 06/03/25 06:32 89 06/03/25 06:07 98 06/03/25 06:04 90 20 134/70 91 L 06/03/25 05:18 100.9 F H 110 H 18 125/81 94 L Intake and Output 06/02/25 06/03/25 06/03/25 22:59 06:59 14:59 Other: Weight 58.967 kg GENERAL EXAM: Alert, pleasant 85-year-old female, sitting up on a stretcher, on room air oxygen, comfortable in no apparent distress. HEAD: Normocephalic. EYES: Normal reaction of pupils, equal size. NOSE: Clear with pink turbinates. THROAT: No erythema or exudates. NECK: No masses, no JVD. CHEST: No chest wall deformity. LUNGS: Equal air entry with no crackles, wheeze, rhonchi or dullness. CVS: S1 and S2 normal with no audible murmur, regular rhythm. ABDOMEN: No hepatosplenomegaly, normal bowel sounds, no guarding or rigidity. SPINE: No scoliosis or deformity SKIN: No rashes CENTRAL NERVOUS SYSTEM: No focal deficits, tone is normal in all 4 extremities. EXTREMITIES: There is no peripheral edema. No clubbing, no cyanosis. Peripheral pulses are intact. Results - Laboratory Findings CBC and BMP: 06/03/25 05:40 06/03/25 05:40 PT/INR, D-dimer PT 10.8 sec (10.0-12.5) 06/03/25 05:52 INR 1.0 (<1.2) 06/03/25 05:52 Abnormal lab findings: Abnormal Labs 06/03/25 06/03/25 06/03/25 05:40 05:40 08:00 WBC 19.71 H Immature Gran # 0.05 H Neutrophils # 17.27 H Lymphocytes # 0.61 L Eosinophils # 0.86 H Glucose 124 H Ur Leukocyte Esterase Small H Urine Mucus Few H - Diagnostic Findings Chest x-ray: image reviewed Assessment and Plan Assessment: Shortness of breath with cough and congestion suspect underlying tracheal bronch itis versus early pneumonia Leukocytosis secondary to above Febrile illness secondary to above Recent treatment for urinary tract infection with antibiotics x 1 week Lifelong non-smoker Hyperlipidemia Urinary incontinence History of anxiety Osteoarthritis with chronic back and neck pain Plan: The patient was seen and evaluated Chest x-ray, labs and medications reviewed Continue ceftriaxone and azithromycin Check a procalcitonin Check a sputum sample if able Continue DuoNeb inhalations Resume her home medications Stable and on room air oxygen Follow-up chest x-ray in a.m. Probable discharge in the a.m. We will continue to follow and make further recommendations based on her clinical status I have personally seen and examined the patient, performed the documentation and the assessment and plan as written. Number of minutes spent on the visit: 20 Dictation was produced using [employer] dictation software. Please excuse any grammatical, word or spelling errors.
--- NOTE | 2025-06-03 14:53 | P.HPIM ---
History of Present Illness H&P Date: 06/03/25 History of Presenting Illness: Patient is a pleasant 85-year-old female with a past medical history of hyperlipidemia, GERD, anxiety, hiatal hernia, urinary incontinence, and osteoarthritis. Patient presented to the hospital with a chief complaint of fever, dry heaves, shortness of breath and coughing x 3 days. She reports she was recently diagnosed with a UTI and completed 7-day course of nitrofurantoin. Patient reports approximately 3 days ago she developed a nonproductive, dry cough, mild shortness of breath, subjective fevers, and recurrent episodes of nausea with dry heaves. She denies having any known ill contacts, dizziness, lightheadedness, headache, diaphoresis, postnasal drip, sore throat, chest pain, palpitations, abdominal pain or discomfort, or experiencing any numbness/tingling/weakness/swelling in her extremities. Upon arrival to our facility, patient underwent evaluation in the emergency department. Vital signs upon arrival show blood pressure 125/81, heart rate 110, respiratory rate 18, temp 100.9 F, and SpO2 of 94% on room air. EKG completed showing normal sinus rhythm at 97 bpm. Chest x-ray completed showing COPD and mild cardiomegaly with bilateral interstitial prominence possibly representing pulmonary vascular congestion, bronchitis, or atypical pneumonia along with findings of moderate to large hiatal hernia. Labs completed and reviewed. CBC showing leukocytosis with WBC count of 19.71, immature granulocytes of 0.05, neutrophils of 17.27, and lymphocytes of 0.61. Coagulation profile normal findings. BMP unremarkab le. Blood glucose 124. Lactic acid 1.7. Calcium 8.9. Liver profile unremarkable. Urinalysis negative for blood or infection. Influenza A, influenza B, RSV, and COVID PCR negative. Patient admitted under our services with consultation to pulmonology. Review of systems: Pertinent positives and negatives as discussed in HPI, a complete review of systems was performed and all other systems are negative. Physical exam: Vital signs reviewed and stable. General: Nontoxic, no distress and appears stated age. Derm: Skin warm and dry, normal coloration for ethnicity. Head: Atraumatic, normocephalic and symmetric. Eyes: EOM's intact, no lid lag, and anicteric sclera Mouth: no lip lesions, mucus membranes moist Cardiovascular: regular rate and rhythm with normal S1S2, no murmur, positive posterior tibial pulses bilaterally, and cap refill < 2 seconds. Lungs: Respirations even, regular, and unlabored on room air. Lungs slightly dim inished otherwise no rhonchi, no rales, no wheezing, and no accessory muscle usage. Abdominal: soft, nontender to palpation, no guarding, no appreciable organomegaly Ext: ROM intact. No gross muscle atrophy, no edema, no contractures Neuro: Speech clear, face symmetrical and CN II-XII grossly intact with no noted focal neuro deficits Psych: Alert and oriented to person, place, time, and situation. Appropriate and pleasant affect. Assessment and Plan of Care: Shortness of breath with nonproductive cough and fever, likely secondary to infectious process such as pneumonia versus bronchitis Leukocytosis -Tylenol 650 mg p.o. every 6 hours as needed for mild pain/fever. -Oxygenation to be administered and titrated as needed to maintain SPO2 equal to or greater than 92% -Telemetry monitoring. -Monitor pulse-oximetry -Duonebs scheduled 4 times daily and as needed for SOB and/or wheezing -Incentive Spirometry -Antibiotics: Zithromax 500 mg daily and Rocephin 2 g daily. -Follow-up blood culture -Follow-up sputum culture, Legionella antigen, and procalcitonin -Blood Tester Fowl was consulted by ED physician. Hyperlipidemia Continue pravastatin 40 mg nightly. GERD Continue Protonix 40 mg daily. Anxiety Continue Xanax 0.25 mg daily as needed for anxiety and duloxetine 20 mg daily. Overactive bladder with urinary incontinence Continue Ditropan 5 mg daily. Data and imaging reviewed: As stated above in HPI. CODE STATUS: Full code DVT prophylaxis: Lovenox Discussed with: Patient, RN, patient's family member at bedside, and ED physician. Anticipated discharge date: Pending clinical course Anticipated discharge place: Home Patient was seen independently by Nurse Practitioner. This document was prepared using [employer] dictation software. Please allow for errors in director of event management while rare they do occur. Jcarlos Mckeon NP rendered care for this patient independently, reviewed the findings and plan as documented in the note above and agree with plan. I did not physically speak with or examine the patient on this date. Past Medical History Past Medical History: GERD/Reflux, Hyperlipidemia, Musculoskeletal Disorder, Osteoarthritis (OA) Additional Past Medical History / Comment(s): chronic neck, back, across shoulders pain, urinary incontinence, swelling behind both eyes post cataract sx-on gtts. History of Any Multi-Drug Resistant Organisms: None Reported Past Surgical History: Bladder Surgery, Breast Surgery, Orthopedic Surgery Additional Past Surgical History / Comment(s): BILAT bunionectomy, CYST REMOVED RT BREAST, BIOPSIES ON BILAT BREAST. COLONOSCOPY/EGD, rt hand trigger thumb, pain procedures, Cataract surgery bilateral eyes Past Anesthesia/Blood Transfusion Reactions: No Reported Reaction Past Psychological History: Anxiety Smoking Status: Never smoker Past Alcohol Use History: None Reported Past Drug Use History: None Reported - Past Family History Mother Family Medical History: Cancer Medications and Allergies Home Medications Medication Instructions Recorded Confirmed Type Pravastatin Sodium [Pravachol] 40 mg PO HS 01/03/15 06/03/25 History Gabapentin [Neurontin] 100 mg PO BID 09/30/18 06/03/25 History DULoxetine HCL [Cymbalta] 20 mg PO DAILY 04/15/22 06/03/25 History Ibandronate Sodium [Boniva] 150 mg PO Q30D 09/08/24 06/03/25 History Pantoprazole Sodium [Protonix] 40 mg PO DAILY 09/08/24 06/03/25 History ALPRAZolam [Xanax] 0.25 mg PO DAILY PRN 06/03/25 06/03/25 History HYDROcodone/APAP 5-325MG [[place] 1 tab PO BID PRN 06/03/25 06/03/25 History 5-325] Meclizine [Antivert] 12.5 mg PO TID PRN 06/03/25 06/03/25 History Multivitamins, Thera [Multivitamin 1 tab PO DAILY 06/03/25 06/03/25 History (formulary)] oxyBUTYnin chloride [Ditropan] 5 mg PO HS 06/03/25 06/03/25 History Allergies Allergy/AdvReac Type Severity Reaction Status Date / Time bee venom protein (honey bee) Allergy Swelling Verified 06/03/25 10:20 face Physical Exam Vitals: Vital Signs Temp Pulse Resp BP Pulse Ox 06/03/25 09:09 85 16 108/72 92 L 06/03/25 08:17 98.5 F 86 16 130/66 92 L 06/03/25 07:14 98.9 F 87 18 113/91 96 06/03/25 06:40 90 06/03/25 06:32 89 06/03/25 06:07 98 06/03/25 06:04 90 20 134/70 91 L 06/03/25 05:18 100.9 F H 110 H 18 125/81 94 L Intake and Output 06/02/25 06/03/25 06/03/25 22:59 06:59 14:59 Other: Weight 58.967 kg Results CBC & Chem 7: 06/03/25 05:40 06/03/25 05:40 Labs: Abnormal Lab Results - Last 24 Hours (Table) 06/03/25 06/03/25 06/03/25 Range/Units 05:40 05:40 08:00 WBC 19.71 H (4.50-10.00) 10*3/uL Immature Gran # 0.05 H (0.00-0.04) 10*3/uL Neutrophils # 17.27 H (1.80-7.70) 10*3/uL Lymphocytes # 0.61 L (0.90-5.00) 10*3/uL Eosinophils # 0.86 H (0.04-0.35) 10*3/uL Glucose 124 H (74-99) mg/dL Ur Leukocyte Esterase Small H (Negative) Urine Mucus Few H (None) /hpf
[2025-06-03] MEDS: IPRATROPIUM-ALBUTEROL 3 ML NEB INHALATION SCH (15:43)
[2025-06-03 18:37] VITALS: RESP 16
[2025-06-03] MEDS: PRAVASTATIN SODIUM 40 MG TAB PO SCH (21:21)
--- NOTE | 2025-06-04 08:44 | XR ---
EXAMINATION TYPE: XR chest 2V DATE OF EXAM: 06/04/2025 8:33 AM COMPARISON: 06/03/2025 CLINICAL INDICATION: Female, 85 years old with history of pneumonia: Shortness of breath TECHNIQUE: XR chest 2V views of the chest are obtained. FINDINGS: Scattered senescent parenchymal changes noted. Hyperinflation compatible with COPD. No evidence for infiltrate. No evidence for atelectasis. Heart size is stable. Large fixed hiatal hernia noted. Mediastinal structures are stable and grossly unremarkable. No evidence for hilar prominence. Degenerative changes dorsal spine. IMPRESSION: 1. No evidence for acute pulmonary disease. [facility], , 06/04/2025 8:42 AM
[2025-06-04] MEDS: ENOXAPARIN 40 MG/0.4 ML SYRINGE SQ SCH (09:39)
[2025-06-04] MEDS: AZITHROMYCIN 500 MG TAB PO SCH (09:40)
--- NOTE | 2025-06-04 10:46 | P.PN ---
Subjective Progress Note Date: 06/04/25 This is a pleasant 85-year-old female patient with a known history of hyperlipidemia, osteoarthritis, chronic neck and back pain, urinary incontinence and was recently treated for urinary tract infection and antibiotics for 1 week. Lifelong non-smoker. She presented here to the emergency room early this morning with a 2-day history of increasing shortness of breath, cough and congestion she also had some dry heaves. She did present with a fever of 100.9. Chest x-ray revealed mild cardiomegaly and some mild pulmonary vascular congestion. There was a noted moderate to large hiatal hernia. White count 19.7. Hemoglobin 13.6. Platelets 219. Sodium 139. Potassium 3.7. Bicarb 23. BUN 12. Creatinine 0.70. Glucose 124. She is seen today in consultation in the emergency department. She is currently sitting up in a stretcher. Awake and alert in no acute distress. She is maintaining O2 saturations in the 90s on room air oxygen. Currently afebrile. Hemodynamically stable. She has a dry nonproductive cough. The patient is seen today June 04, 2025 in follow-up on the regular medical floor. She is currently sitting up in a chair at the bedside. Having breakfast. Awake and alert in no acute distress. Denies any worsening shortness of breath, cough or congestion. Feeling better today compared to yesterday. Maintaining good O2 saturations in the 90s on room air. She has bee n afebrile. Hemodynamically stable. Follow-up chest x-ray continues to show no evidence of acute pulmonary disease. Procalcitonin was negative at 0.17. She remains on ceftriaxone and azithromycin. Continued on DuoNeb inhalations. Lovenox for DVT prophylaxis. Objective - Vital Signs Vital signs: Vital Signs Temp 98.2 F 06/04/25 07:35 Pulse 94 06/04/25 07:35 Resp 16 06/04/25 07:35 BP 148/49 06/04/25 07:35 Pulse Ox 91 L 06/04/25 07:35 FiO2 Intake & Output 06/03/25 06/04/25 06/04/25 18:59 06:59 18:59 Intake Total 540 Balance 540 Weight 58.967 kg Intake: Oral 540 Other: Voiding Method Toilet # Voids 3 - Exam GENERAL EXAM: Alert, active, pleasant 85-year-old female, sitting up in a chair having breakfast, on room air, comfortable in no apparent distress. HEAD: Normocephalic. EYES: Normal reaction of pupils, equal size. NOSE: Clear with pink turbinates. THROAT: No erythema or exudates. NECK: No masses, no JVD. CHEST: No chest wall deformity. LUNGS: Equal air entry with no crackles, wheeze, rhonchi or dullness. CVS: S1 and S2 normal with no audible murmur, regular rhythm. ABDOMEN: No hepatosplenomegaly, normal bowel sounds, no guarding or rigidity. SPINE: No scoliosis or deformity SKIN: No rashes CENTRAL NERVOUS SYSTEM: No focal deficits, tone is normal in all 4 extremities. EXTREMITIES: There is no peripheral edema. No clubbing, no cyanosis. Peripheral pulses are intact. - Labs CBC & Chem 7: 06/03/25 05:40 06/03/25 05:40 Assessment and Plan Assessment: Shortness of breath with cough and congestion suspect underlying tracheobronchitis. Chest x-ray reveals no acute pulmonary process. Procalcitonin negative at 0.17 Leukocytosis secondary to above Febrile illness secondary to above, recovered Recent treatment for urinary tract infection with antibiotics x 1 week Lifelong non-smoker Hyperlipidemia Urinary incontinence History of anxiety Osteoarthritis with chronic back and neck pain Plan: The patient was seen and evaluated Chest x-ray, labs and medications reviewed Procalcitonin negative Chest x-ray shows no acute process Stable and on room air Cleared for discharge Could complete a course of azithromycin Follow-up closely with her PCP This patient was seen independently by the pulmonary nurse practitioner addressing pulmonary issues I have personally seen and examined the patient, performed the documentation and the assessment and plan as written. Number of minutes spent on the visit: 24 Dictation was produced using [employer] software. Please excuse any grammatical, word or spelling errors.
[2025-06-04 12:03] VITALS: BP 144/80; PULSE 89; TEMP 98.1
--- NOTE | 2025-06-04 16:56 | P.DS ---
Providers Date of admission: 06/03/25 08:15 Expected date of discharge: 06/04/25 Attending physician: Edgar Guzman Consults: 06/03/25 08:15 Consult Physician Routine Consulting Provider: Emeli Diggs Consult Reason/Comments: pneumonia Do you want consulting provider notified?: Yes Primary care physician: Domo [facility] Course: Discharge Diagnosis: Shortness of breath with nonproductive cough and fever, likely secondary to tracheobronchitis. Patient had full resolution of symptoms and reports feeling great. She remains on room air with SpO2 91 to 93%. Repeat morning chest x-ray was negative for acute cardiopulmonary process. Procalcitonin negative at 0.17. Urine Legionella negative. Pulmonology recommending patient complete 5-day course of Zithromax. Patient received 2 doses in hospital and discharged home on an additional 3-day course. Patient medically optimized for discharge and to follow-up outpatient with PCP in 1 to 2 days and with director chemistry in 1 to 2 weeks. Leukocytosis. Likely reactive secondary to above. Hyperlipidemia. Continue pravastatin 40 mg nightly. GERD. Continue Protonix 40 mg daily. Anxiety. Continue Xanax 0.25 mg daily as needed for anxiety and duloxetine 20 mg daily. Overactive bladder with urinary incontinence. Continue Ditropan 5 mg daily. Hospital Course: Patient is a pleasant 85-year-old female with a past medical history of hyperlipidemia, GERD, anxiety, hiatal hernia, urinary incontinence, and osteoarthritis. Patient presented to the hospital with a chief complaint of fever, dry heaves, shortness of breath and coughing x 3 days. She reports she was recently diagnosed with a UTI and completed 7-day course of nitrofurantoin. Patient reports approximately 3 days ago she developed a nonproductive, dry cough, mild shortness of breath, subjective fevers, and recurrent episodes of nausea with dry heaves. She denies having any known ill contacts, dizziness, lightheadedness, headache, diaphoresis, postnasal drip, sore throat, chest pain, palpitations, abdominal pain or discomfort, or experiencing any numbness/tingling/weakness/swelling in her extremities. Upon arrival to our facility, patient underwent evaluation in the emergency department. Vital signs upon arrival show blood pressure 125/81, heart rate 110, respiratory rate 18, temp 100.9 F, and SpO2 of 94% on room air. EKG completed showing normal sinus rhythm at 97 bpm. Chest x-ray completed showing COPD and mild cardiomegaly with bilateral interstitial prominence possibly representing pulmonary vascular congestion, bronchitis, or atypical pneumonia along with findings of moderate to large hiatal hernia. Labs completed and reviewed. CBC showing leukocytosis with WBC count of 19.71, immature granulocytes of 0.05, neutrophils of 17.27, and lymphocytes of 0.61. Coagulation profile normal findings. BMP unremarkable. Blood glucose 124. Lactic acid 1.7. Calcium 8.9. Liver profile unremarkable. Urinalysis negative for blood or infection. Influenza A, influenza B, RSV, and COVID PCR negative. Patient admitted under our services with consultation to pulmonology. Shortness of breath with nonproductive cough and fever, likely secondary to tracheobronchitis. Patient had full resolution of symptoms and reports feeling great. She remains on room air with SpO2 91 to 93%. Repeat morning chest x-ray was negative for acute cardiopulmonary process. Procalcitonin negative at 0.17. Urine Legionella negative. Pulmonology recommending patient complete 5-day course of Zithromax. Patient received 2 doses in hospital and discharged home on an additional 3-day course. Patient medically optimized for discharge and to follow-up outpatient with PCP in 1 to 2 days and with director chemistry in 1 to 2 weeks. Physical exam: Vital signs reviewed and stable. General: Nontoxic, no distress and appears stated age. Derm: Skin warm and dry, normal coloration for ethnicity. Head: Atraumatic, normocephalic and symmetric. Eyes: EOM's intact, no lid lag, and anicteric sclera Mouth: no lip lesions, mucus membranes moist Cardiovascular: regular rate and rhythm with normal S1S2, no murmur, positive posterior tibial pulses bilaterally, and cap refill < 2 seconds. Lungs: Respirations even, regular, and unlabored on room air. Lungs slightly diminished otherwise no rhonchi, no rales, no wheezing, and no accessory muscle usage. Abdominal: soft, nontender to palpation, no guarding, no appreciable organomegaly Ext: ROM intact. No gross muscle atrophy, no edema, no contractures Neuro: Speech clear, face symmetrical and CN II-XII grossly intact with no noted focal neuro deficits Psych: Alert and oriented to person, place, time, and situation. Appropriate and pleasant affect. A total of 32 minutes of time were spent preparing this complex discharge summary. Pt was discharged on 06/04/2025 at 11:58 AM. Patient was seen independently by Nurse Practitioner. This document was prepared using [employer] dictation software. Please allow for errors in postal transportation clerk while rare they do occur. Jcarlos Mckeon MANAGER PHYSICAL rendered care for this patient independently, reviewed the findings and plan as documented in the note above. I did not physically speak with or examine the patient on this date. Patient Condition at Discharge: Stable Plan - Discharge Summary Discharge Rx Participant: No New Discharge Prescriptions: New Albuterol Inhaler [Ventolin Hfa Inhaler] 2 puff INHALATION QID PRN #8 gm PRN Reason: Shortness Of Breath Or Wheezing Azithromycin [Zithromax Z Pack] 250 mg PO DAILY 3 Days #3 tab Continue Pravastatin Sodium [Pravachol] 40 mg PO HS Gabapentin [Neurontin] 100 mg PO BID DULoxetine HCL [Cymbalta] 20 mg PO DAILY Pantoprazole Sodium [Protonix] 40 mg PO DAILY oxyBUTYnin chloride [Ditropan] 5 mg PO HS Multivitamins, Thera [Multivitamin (formulary)] 1 tab PO DAILY Meclizine [Antivert] 12.5 mg PO TID PRN PRN Reason: Vertigo Ibandronate Sodium [Boniva] 150 mg PO Q30D HYDROcodone/APAP 5-325MG [[place] 5-325] 1 tab PO BID PRN PRN Reason: Pain ALPRAZolam [Xanax] 0.25 mg PO DAILY PRN PRN Reason: Anxiety Discharge Medication List Pravastatin Sodium [Pravachol] 40 mg PO HS 01/03/15 [History] Gabapentin [Neurontin] 100 mg PO BID 09/30/18 [History] DULoxetine HCL [Cymbalta] 20 mg PO DAILY 04/15/22 [History] Ibandronate Sodium [Boniva] 150 mg PO Q30D 09/08/24 [History] Pantoprazole Sodium [Protonix] 40 mg PO DAILY 09/08/24 [History] ALPRAZolam [Xanax] 0.25 mg PO DAILY PRN 06/03/25 [History] HYDROcodone/APAP 5-325MG [[place] 5-325] 1 tab PO BID PRN 06/03/25 [History] Meclizine [Antivert] 12.5 mg PO TID PRN 06/03/25 [History] Multivitamins, Thera [Multivitamin (formulary)] 1 tab PO DAILY 06/03/25 [History] oxyBUTYnin chloride [Ditropan] 5 mg PO HS 06/03/25 [History] Albuterol Inhaler [Ventolin Hfa Inhaler] 2 puff INHALATION QID PRN #8 gm 06/04/25 [Rx] Azithromycin [Zithromax Z Pack] 250 mg PO DAILY 3 Days #3 tab 06/04/25 [Rx] Follow up Appointment(s)/Referral(s): Domo Kwan DO [Primary Care Provider] - 1-2 days Emeli Diggs MD [STAFF PHYSICIAN] - 1 Week Patient Instructions/Handouts: Acute Bronchitis (GEN) Activity/Diet/Wound Care/Special Instructions: Activity: As tolerated. Take breaks as needed. Diet: as per home Heart healthy and carb consistent diet. Avoid salts, or foods with hidden salts such as canned or boxed foods and frozen dinners. Extra salt makes your heart work harder and traps the fluid in your body for longer. Special Instructions: Take all of your medications as directed and remember to keep all of your doctor's appointments and follow-up as needed. Thank you for allowing us to participate in your care, it was truly a pleasure having you for our patient!!! Call to schedule the appointments on Friday (office closed on weekend) Discharge Disposition: HOME SELF-CARE
== END 2025-06-04 12:53 | disposition home or self-care (01) | DRG 203 ==
LOC: EC 05:14 → 4SSUR 08:15 → 5NMEDONC 17:45
PROVIDERS: ADMIT Student in an Organized Health Care Education/Training Program; ATTEND Student in an Organized Health Care Education/Training Program
DX: J40 Bronchitis, not specified as acute or chronic (principal); E78.5 Hyperlipidemia, unspecified; F41.9 Anxiety disorder, unspecified; K21.9 Gastro-esophageal reflux disease without esophagitis; N32.81 Overactive bladder; R32 Unspecified urinary incontinence; K44.9 Diaphragmatic hernia without obstruction or gangrene; M19.90 Unspecified osteoarthritis, unspecified site; G89.29 Other chronic pain; M54.2 Cervicalgia; M54.9 Dorsalgia, unspecified; Z79.899 Other long term (current) drug therapy; Z87.440 Personal history of urinary (tract) infections
CPT/HCPCS: 36415; 71046; 80053; 81001; 83605; 84145; 85025; 85610; 85730; 87040; 87449; 87636; 93005; 94640; 96361; 96365; 96375; 99285